=== PATIENT | male | born 1955 | race Caucasian/White ===

== ENCOUNTER 2017-10-19 15:43 | Outpatient (CLI) | payer MEDICAID, SELFPAY | END 2017-10-19 16:17 | PROVIDERS: Family Provider Internal Medicine Adolescent Medicine; Visit Provider Internal Medicine Adolescent Medicine | DX: Z79.01 Long term (current) use of anticoagulants (principal); Z95.2 Presence of prosthetic heart valve; Z51.81 Encounter for therapeutic drug level monitoring | CPT/HCPCS: 85610; 99211; G0463 ==

== ENCOUNTER 2017-11-29 11:51 | Outpatient (CLI) | payer MEDICAID, SELFPAY ==
[2017-11-29 13:59] LABS: PHA INR Fingerstick 2.6 (0.9-1.1)
== END 2017-11-29 14:07 | disposition home or self-care (01) ==
LOC: ACC 11:53
PROVIDERS: PCP Internal Medicine Adolescent Medicine; Visit Provider Internal Medicine Adolescent Medicine
DX: Z79.01 Long term (current) use of anticoagulants (principal); Z95.2 Presence of prosthetic heart valve; Z51.81 Encounter for therapeutic drug level monitoring
CPT/HCPCS: 85610

== ENCOUNTER → 2018-01-30 09:54 | Outpatient (CLI) | payer MEDICAID, SELFPAY ==
[2018-01-30 13:57] LABS: Alanine Aminotransferase 20 U/L (12-78); Albumin Level 3.5 gm/dL (3.4-5.0); Alkaline Phosphatase 95 U/L (46-116); Anion Gap 12.4 mEq/L (5-15); Aspartate Amino Transferase 21 U/L (15-37); Bilirubin,Total 0.7 mg/dL (0.2-1.0); Blood Urea Nitrogen 47 mg/dL (7-18); Calcium 9.3 mg/dL (8.5-10.1); Carbon Dioxide 29 mmol/L (21.0-32.0); Chloride 104 mmol/L (98-107); Creatinine,Serum 1.75 mg/dL (0.70-1.30); Estimated Glomerular Filt Rate 39 ml/min (>60); GFR (African American) 48 ML/MIN (>60); Globulin 3.6 gm/dl (1.3-3.2); Glucose 102 mg/dL (74-106); Potassium 4.4 mmoL/L (3.5-5.1); Sodium 141 mmol/L (136-145); Total Protein,Serum 7.1 gm/dL (6.4-8.2)
[2018-01-30 14:19] LABS: Hemoglobin A1C 6.5 % (0.0-7.0)
== END ==
PROVIDERS: Visit Provider Internal Medicine Adolescent Medicine
DX: E11.9 Type 2 diabetes mellitus without complications (principal)
CPT/HCPCS: 36415; 80053; 83036

== ENCOUNTER 2018-02-07 15:40 | Outpatient (CLI) | payer MEDICAID, SELFPAY ==
[2018-02-07 15:59] LABS: PHA INR Fingerstick 3.1 (0.9-1.1)
== END 2018-02-07 16:08 | disposition home or self-care (01) ==
LOC: ACC 15:41
PROVIDERS: PCP Internal Medicine Adolescent Medicine; Visit Provider Internal Medicine Adolescent Medicine
DX: Z79.01 Long term (current) use of anticoagulants (principal); Z51.81 Encounter for therapeutic drug level monitoring; Z95.2 Presence of prosthetic heart valve
CPT/HCPCS: 85610; 99211; G0463

== ENCOUNTER 2018-03-24 13:46 | Outpatient (CLI) | payer MEDICAID, SELFPAY ==
[2018-03-24 14:21] LABS: PHA INR Fingerstick 2.7 (0.9-1.1)
== END 2018-03-24 14:55 | disposition home or self-care (01) ==
LOC: ACC 13:48
PROVIDERS: PCP Internal Medicine Adolescent Medicine; Visit Provider Internal Medicine Adolescent Medicine
DX: Z79.01 Long term (current) use of anticoagulants (principal); Z51.81 Encounter for therapeutic drug level monitoring; Z95.2 Presence of prosthetic heart valve
CPT/HCPCS: 85610; 99211; G0463

== ENCOUNTER 2018-05-16 15:43 | Outpatient (CLI) | payer MEDICAID, SELFPAY ==
[2018-05-16 16:21] LABS: PHA INR Fingerstick 2.8 (0.9-1.1)
== END 2018-05-16 16:33 | disposition home or self-care (01) ==
LOC: ACC 15:44
PROVIDERS: PCP Internal Medicine Adolescent Medicine; Visit Provider Internal Medicine Adolescent Medicine
DX: Z79.01 Long term (current) use of anticoagulants (principal); Z51.81 Encounter for therapeutic drug level monitoring; Z95.2 Presence of prosthetic heart valve
CPT/HCPCS: 85610; 99211; G0463

== ENCOUNTER 2018-08-01 13:22 | Outpatient (CLI) | payer MEDICAID, SELFPAY ==
[2018-08-01 15:45] LABS: PHA INR Fingerstick 2.8 (0.9-1.1)
== END 2018-08-01 15:47 | disposition home or self-care (01) ==
LOC: ACC 13:23
PROVIDERS: Family Provider Internal Medicine Adolescent Medicine; PCP Internal Medicine Adolescent Medicine; Visit Provider Internal Medicine Adolescent Medicine
DX: Z51.81 Encounter for therapeutic drug level monitoring (principal); Z79.01 Long term (current) use of anticoagulants; Z95.2 Presence of prosthetic heart valve
CPT/HCPCS: 85610; 99211; G0463

== ENCOUNTER 2018-09-27 10:39 | Outpatient (CLI) | payer MEDICAID, SELFPAY ==
[2018-09-27 11:23] LABS: PHA INR Fingerstick 2.8 (0.9-1.1)
== END 2018-09-27 11:25 | disposition home or self-care (01) ==
LOC: ACC 10:40
PROVIDERS: PCP Internal Medicine Adolescent Medicine; Visit Provider Internal Medicine Adolescent Medicine
DX: Z51.81 Encounter for therapeutic drug level monitoring (principal); Z79.01 Long term (current) use of anticoagulants; Z95.2 Presence of prosthetic heart valve
CPT/HCPCS: 85610; 99211; G0463

== ENCOUNTER 2018-11-15 09:50 | Outpatient (CLI) | payer MEDICARE, MEDICAID, SELFPAY | END 2018-11-15 11:09 | disposition home or self-care (01) | LOC: ACC 09:55 | PROVIDERS: PCP Internal Medicine Adolescent Medicine; Visit Provider Internal Medicine Adolescent Medicine | DX: Z51.81 Encounter for therapeutic drug level monitoring (principal); Z79.01 Long term (current) use of anticoagulants; Z95.2 Presence of prosthetic heart valve | CPT/HCPCS: 85610; 99211; G0463 ==

== ENCOUNTER → 2018-12-19 16:56 | Outpatient (CLI) | payer MEDICARE, MEDICAID, SELFPAY ==
--- NOTE | 2018-12-19 17:06 | XR_ITS ---
XR chest 2V HISTORY: Cough and hemoptysis ITS.REASON: HEMOPTYSIS ORDERING PHYSICIAN: Humphrey Chavarria MD PATIENT AGE: 63 years COMPARISON: 07/26/2015 FINDINGS: Prior CABG and bivalvular replacement. Normal heart size.. Consolidation present in the left lower lobe consistent with pneumonia with small effusion. There is increased density along the posterior hemithorax on the lateral view at the T8-T9 and T10 region. There was parenchymal opacity in this region on previous CT scan of 04/09/2015. This may be somewhat more prominent. Follow-up chest CT may confirm stability. No acute bony abnormalities. IMPRESSION: 1. Left lower lobe pneumonia with effusion. 2. Postsurgical changes. 3. Slight increase in parenchymal and subpleural opacity in the posterior hemithorax on the left which may be better evaluated with CT
[2018-12-19 17:26] LABS: INR 1.92 (0.9-1.1); Prothrombin Time 19.4 seconds (9.4-11.8)
[2018-12-19 17:55] LABS: Basophils # 0.1 K/mm3 (0-0.2); Basophils % 0.5 % (0.1-2.0); Eosinophils # 0.1 K/mm3 (0.0-0.4); Hematocrit 44.6 % (42.0-52.0); Hemoglobin 14.1 g/dL (14.1-18.0); Lymphocytes # 1.5 K/mm3 (0.7-4.5); Lymphocytes % 14.9 % (10-50); Mean Corpuscular HGB Conc 31.5 g/dL (31.8-35.4); Mean Corpuscular Hemoglobin 27.8 pg (27.0-31.2); Mean Corpuscular Volume 88.1 fl (80-94); Mean Platelet Volume 7.5 fl (7.4-10.4); Monocytes # 0.6 K/mm3 (0.1-1.0); Monocytes % 6.4 % (1.7-9.3); Neutrophils # 7.6 K/mm3 (1.8-7.8); Neutrophils % 77.2 % (37.0-80.0); Platelet Count 195 K/mm3 (142-424); Red Blood Count 5.07 M/mm3 (4.60-6.20); Red Cell Distribution Width 14.7 % (11.5-17.5); White Blood Count 9.9 K/mm3 (4.8-10.8)
[2018-12-19 18:14] LABS: Alanine Aminotransferase 19 U/L (12-78); Albumin Level 3.1 gm/dL (3.4-5.0); Albumin/Globulin Ratio 0.8 (1.1-1.8); Alkaline Phosphatase 96 U/L (46-116); Anion Gap 11.5 mEq/L (5-15); Aspartate Amino Transferase 19 U/L (15-37); Bilirubin,Total 1.4 mg/dL (0.2-1.0); Blood Urea Nitrogen 53 mg/dL (7-18); Calcium 8.7 mg/dL (8.5-10.1); Carbon Dioxide 27 mmol/L (21.0-32.0); Chloride 103 mmol/L (98-107); Creatinine,Serum 1.96 mg/dL (0.70-1.30); Estimated Glomerular Filt Rate 34 ml/min (>60); GFR (African American) 42 ML/MIN (>60); Globulin 3.8 gm/dl (1.3-3.2); Glucose 86 mg/dL (74-106); Potassium 4.5 mmoL/L (3.5-5.1); Sodium 137 mmol/L (136-145); Total Protein,Serum 6.9 gm/dL (6.4-8.2)
== END ==
PROVIDERS: Visit Provider Internal Medicine Adolescent Medicine
DX: R04.2 Hemoptysis (principal); Z51.81 Encounter for therapeutic drug level monitoring; Z79.01 Long term (current) use of anticoagulants; Z95.2 Presence of prosthetic heart valve
CPT/HCPCS: 36415; 71046; 80053; 85025; 85610

== ENCOUNTER → 2018-12-28 07:40 | Outpatient (CLI) | payer MEDICARE, MEDICAID, SELFPAY ==
--- NOTE | 2018-12-28 07:43 | CT_ITS ---
CT chest wo con HISTORY: Hemoptysis, pneumonia, lobar pneumonia ITS.REASON: LOBAR PNEUMONIA ORDERING PHYSICIAN: Humphrey Chavarria MD PATIENT AGE: 63 years COMPARISON: 12/19/2018 Technique: Axial images obtained without contrast. Sagittal, and coronal reformatted images are also generated and reviewed. All CT scans at the facility use one or more dose reduction, viz: automated exposure control, ma/kV adjustment per patient size (including targeted exams where dose is matched to indication, i.e. head), or iterative reconstruction technique. FINDINGS: Extensive atheromatous changes are present involving the thoracic aorta. There has been CABG and bivalvular replacement. Normal heart size. No evidence of pericardial effusion. A moderate-sized hiatal hernia. There are centrilobular emphysematous changes along with hyperinflation consistent with COPD. There are scattered small mediastinal lymph nodes. Calcified granuloma is present in the right lower lobe.. A noncalcified 6 mm nodule present in the right lower lobe posteriorly. There is some faint nodularity within the lingula. There is an oval bandlike and masslike area of consolidation in the left lower lobe posteriorly. No central air bronchograms are evident however this has fairly smooth margin with some peripheral air bronchograms. This is consistent with chronic consolidation or volume loss/atelectasis having a similar appearance on older abdomen CT scan of 04/09/2015. Trace left-sided effusion is noted with some thickening of the pleura inferiorly not significantly changed. No acute bony findings. Upper abdominal images show prior cholecystectomy with some coarse calcification along the right hepatic lobe inferiorly with slight increased soft tissue density at this region. This is of questionable clinical significance and could be sequela from prior surgery. IMPRESSION: 1. Chronic left lower lobe consolidation/volume loss posteriorly with associated effusion not significant change from 04/09/2015 2. 6 mm noncalcified nodule right lower lobe. 6 month follow-up suggested. 3. Status post cholecystectomy with some dystrophic calcification noted along the right hepatic lobe inferiorly and posteriorly possibly postsurgical in nature and may be confirmed with follow-up. 4. Medium sized hiatal hernia
== END ==
PROVIDERS: PCP Internal Medicine Adolescent Medicine; Visit Provider Internal Medicine Adolescent Medicine
DX: J18.1 Lobar pneumonia, unspecified organism (principal); Z87.891 Personal history of nicotine dependence
CPT/HCPCS: 71250

== ENCOUNTER 2019-01-03 10:18 | Outpatient (CLI) | payer MEDICARE, MEDICAID, SELFPAY ==
[2019-01-03 11:30] LABS: PHA INR Fingerstick 2.7 (0.9-1.1)
== END 2019-01-03 11:34 | disposition home or self-care (01) ==
LOC: ACC 10:23
PROVIDERS: PCP Internal Medicine Adolescent Medicine; Visit Provider Internal Medicine Adolescent Medicine
DX: Z51.81 Encounter for therapeutic drug level monitoring (principal); Z79.01 Long term (current) use of anticoagulants; Z95.2 Presence of prosthetic heart valve
CPT/HCPCS: 36415; 85610; 99211; G0463

== ENCOUNTER → 2019-01-09 10:47 | Outpatient (CLI) | payer MEDICARE, MEDICAID, SELFPAY ==
--- NOTE | 2019-01-09 10:49 | CA_ITS ---
PROCEDURE: 2-D M-mode and color Doppler study INDICATIONS FOR THE TEST: Chest pain COPD Heart Murmur Tobacco SmokingEX Palpitations Fatigue Syncope Edema Hypertension+Diabetes Mellitus+ Rheumatic Fever SOB SANDOVAL Obesity Hyperlipidemia+ Family History HD Additional History EF 40-45% on echo 06/07/17, [facility] AV, [facility] MV PATIENT INFORMATION HEIGHT: 66 WEIGHT:197 GENDER: Male B/P: 130/85 2-D/M-MODE INTERPRETATION: 2-D MEASUREMENTS OBSERVED VALUES IN CMS Right Ventricular Dimension (RVDd) 3.1 Interventricular Septum (Thickness)(IVsd) 1.3 Left Ventricular Internal Dimensions(LVIDd) 3.5 Left Ventricular Posterior Wall (Thickness)(LVPWd) 1.3 Aortic Root 2.4 Aortic Cusp Separation 1.6 Left Atrial Dimensions (LAD) 4.0 2D 1. Left atrium is mildly enlarged, left ventricle is normal size, mild concentric left ventricular hypertrophy, visually estimated ejection fraction 40-45%, there is abnormal septal motion. 2. The right atrium and right ventricle are moderately enlarged, contractility of the right ventricle is normal. 3. There is mechanical prosthetic valve noted in the aortic position, the valve is well seated. 4. There is mechanical prosthetic valve noted in the mitral position valve is well seated. 5. The tricuspid valve leaflets are minimally thickened and 6. The pulmonic valve is poorly visualized. 7. No significant pericardial effusion noted. DOPPLER INTERROGATION: 1. The aortic out flow velocity across the prosthetic valve is within normal range, there is no aortic stenosis or aortic insufficiency. 2. The mitral inflow velocity across the prosthetic valve is within normal range, there is no significant mitral inflow obstruction or mitral regurgitation. 3. There is mild tricuspid regurgitation noted, tricuspid regurgitation jet velocity is inadequate for calculation of the right ventricular systolic pressure. CONCLUSION: 1. Moderate biatrial enlargement, normal left ventricular size, mild concentric left ventricular hypertrophy, visually estimated ejection fraction 40-45%, there is abnormal septal motion. 2. Normal functioning mechanical prosthetic valve in the aortic position without significant aortic outflow obstruction or aortic insufficiency. 3. Normal functioning mechanical prosthetic valve in mitral position 4. Mild tricuspid regurgitation 5. Moderately enlarged right ventricle with normal contractility. 6. No significant pericardial effusion noted.
== END ==
PROVIDERS: PCP Internal Medicine Adolescent Medicine; Visit Provider Urology
DX: I42.9 Cardiomyopathy, unspecified (principal); I25.10 Atherosclerotic heart disease of native coronary artery without angina pectoris
CPT/HCPCS: 93306

== ENCOUNTER 2019-01-31 13:57 | Outpatient (CLI) | payer MEDICARE, MEDICAID, SELFPAY ==
[2019-01-31 15:14] LABS: PHA INR Fingerstick 2.6 (0.9-1.1)
== END 2019-01-31 15:23 | disposition home or self-care (01) ==
LOC: ACC 13:59
PROVIDERS: PCP Internal Medicine Adolescent Medicine; Visit Provider Internal Medicine Adolescent Medicine
DX: Z51.81 Encounter for therapeutic drug level monitoring (principal); Z79.01 Long term (current) use of anticoagulants; Z95.2 Presence of prosthetic heart valve
CPT/HCPCS: 85610; 99211; G0463

== ENCOUNTER 2019-04-04 10:45 | Outpatient (CLI) | payer MEDICARE, MEDICAID, SELFPAY ==
[2019-04-04 11:23] LABS: PHA INR Fingerstick 3.1 (0.9-1.1)
== END 2019-04-04 11:32 | disposition home or self-care (01) ==
LOC: ACC 10:47
PROVIDERS: PCP Internal Medicine Adolescent Medicine; Visit Provider Internal Medicine Adolescent Medicine
DX: Z51.81 Encounter for therapeutic drug level monitoring (principal); Z79.01 Long term (current) use of anticoagulants; Z95.2 Presence of prosthetic heart valve
CPT/HCPCS: 85610; 99211; G0463

== ENCOUNTER 2019-07-04 10:44 | Outpatient (CLI) | payer MEDICARE, MEDICAID, SELFPAY ==
[2019-07-04 11:48] LABS: PHA INR Fingerstick 3.5 (0.9-1.1)
--- NOTE | 2019-11-08 14:46 | HMH.PHAINT ---
ACC-CALLED MULTIPLE NUMBERS INCLUDING [id number] AND [id number]. CALLED MD OFFICE TO VERIFY PHONE NUMBERS WELL. NO ANSWER, DISCONNECTED.
== END 2019-07-04 11:57 | disposition home or self-care (01) ==
PROVIDERS: PCP Internal Medicine Adolescent Medicine; Visit Provider Internal Medicine Adolescent Medicine
DX: Z51.81 Encounter for therapeutic drug level monitoring (principal); Z79.01 Long term (current) use of anticoagulants; Z95.2 Presence of prosthetic heart valve
CPT/HCPCS: 85610; 99211; G0463

== ENCOUNTER 2020-03-10 09:19 | Outpatient (CLI) | payer MEDICARE, OTHER, SELFPAY ==
[2020-03-10 10:13] LABS: PHA INR Fingerstick 3.4 (0.9-1.1)
== END 2020-03-10 10:19 | disposition home or self-care (01) ==
LOC: ACC 09:22
PROVIDERS: PCP Internal Medicine Adolescent Medicine; Visit Provider Internal Medicine Adolescent Medicine
DX: Z51.81 Encounter for therapeutic drug level monitoring (principal); Z79.01 Long term (current) use of anticoagulants; Z95.2 Presence of prosthetic heart valve
CPT/HCPCS: 85610; 99211; G0463

== ENCOUNTER → 2020-04-08 08:12 | Outpatient (CLI) | payer MEDICARE, OTHER, SELFPAY ==
[2020-04-08 10:32] LABS: Coronavirus 19 IgG Antibody Negative (Negative); Coronavirus 19 IgM Antibody Negative (Negative)
== END ==
PROVIDERS: Visit Provider Surgery
DX: Z01.818 Encounter for other preprocedural examination (principal)
CPT/HCPCS: 36415; 86328

== ENCOUNTER 2020-04-10 07:28 | Day surgery (SDC) | payer MEDICARE, OTHER, SELFPAY ==
[2020-04-09 13:24] VITALS: BMI 28.7
[2020-04-10] VITALS (11 sets, daily range): BP systolic 76–135; BP diastolic 48–82; PULSE 61–87; RESP 16–18; TEMP 36.5–36.6; O2SAT 94–98
[2020-04-10 08:16] LABS: POC Glucose,Bedside 59 (70-110)
[2020-04-10 09:16] LABS: POC Glucose,Bedside 128 (70-110)
[2020-04-10 09:19] LABS: INR 1.25 (0.9-1.1); Prothrombin Time 12.7 seconds (9.4-11.8)
--- NOTE | 2020-04-10 10:24 | HMH.ANESCL ---
[facility] Anesthesia Checklist - Patient Identification Patient Identification: Arm Band, Verbal (Name & ) - Structural Data Admitted From: Home Planned Operative Procedure/s: Colonoscopy Consent for Planned Operative Procedure(s) Verified: Yes Verified Documents: Surgical Consent, History and Physical - NPO Status Verified Time NPO: 00:00 - Chart Verification Results Verified: PT, PTT, INR - Additional verifications Fingerstick Blood Glucose: 128 Anesthesia Reactions: No - Airway Assessment C-Spine Mobility Assessed: Yes TMJ Mobility Assessed: Yes Dentition: Edentulous - Neurological Assessment Level of Consciousness: Awake, Alert, Appropriate, Follows Commands, Sedated Hx Seizures: No Numbness or tingling in extremities: Yes - Anesthesia Plan Anesthesia Risk discussed: Yes Anesthesia Plan: Verified ASA Class: III Anesthesia Type: MAC [facility] History I have reviewed the patient's past medical history: Yes Medical History: Reports:: Atherosclerotic Heart Disease, Cardiomyopathy, Chronic Obstructive Pulmonary Disease (COPD), Coronary Artery Disease, Cerebrovascular Accident, Diabetes Mellitus Type 2, Gastroesophageal Reflux Disease(GERD), Hyperlipidemia, Hypertension, Renal Disease, Valvular Heart Disease Denies:: Cancer, Internal Pacemaker, MRSA, Seizures *Have you ever received a pneumonia vaccine?: Yes *Have you received a flu vaccine this season?: Yes Comment:: Gout, obesity Anesthesia experience/problems:: None Other Surgeries: Yes: Angioplasty, Cardiac Catheterization (stents), Coronary Stent, Other. No: Pacemaker Amputation: No Fractures: No - *Social History Smoking Status: Former smoker Tobacco Type: smokeless tobacco Alcohol Intake: former Alcohol Intake Frequency:: other Substance Use Type: denies use *Occupational Status:: retired *Travel in the last 8 weeks: None Family Hx:: Diabetes
--- NOTE | 2020-04-10 11:01 | HMH.SCOPE ---
- Procedure: Date: 04/10/20 Procedure Performed:: Colonoscopy with polypectomy Indications:: Positive Cologuard Performing Provider:: Simon Cormier MD Referring Provider:: . Sedation:: Monitored anesthesia care Procedure:: After informed consent was obtained the patient was taken to the endoscopy suite. Sedation ensued after the patient was transferred to the left lateral decubitus position. Pulse, blood pressure, and oxygen saturation were monitored throughout the procedure. Digital rectal exam revealed no significant abnormality. The colonoscope was placed in position. The entire colon was evaluated. The colonoscope was carefully removed and the patient was transferred to recovery in stable condition. Please see findings and specimens below for detail. Findings:: Bowel preparation moderate Moderate spasticity Fairly severe lack of relaxation Moderate tortuosity with particularly high degree of tortuosity in sigmoid Scattered diverticulosis (pandiverticulosis) Hemorrhoidal cushions with no thrombosis or bleeding Multiple complex polyps (see specimens) Specimens:: Pedunculated right colon polyp (snare) Hepatic flexure polyp (snare) Adjacent polyps at 65 cm (snare) Adjacent polyps at 55 cm Cluster of complex polyps around 55 cm (snare) Polyp at 12 cm (snare) Recommendations:: Consider barium enema secondary to fairly significant sigmoid tortuosity Timing of repeat colonoscopy is pending pathology and results of barium enema but will likely be between 6-12 months secondary to size/nature/number of polyps, moderate bowel preparation, spasticity/tortuosity, lack of relaxation, and positive Cologuard. Complications:: No immediate Estimated blood obtained (mL): 1
[2020-04-10 11:12] LABS: POC Glucose,Bedside 91 (70-110)
--- NOTE | 2020-04-10 13:00 | XR_ITS ---
PROCEDURE: XR ACUTE ABDOMEN SERIES CLINICAL INDICATION: pain s/p colonoscopy COMPARISON: CXR2V XR chest 2V from 12/19/2018 FINDINGS: Frontal view of the chest shows prior by valvular replacement with cardiomegaly. There is increased density on the left suggesting left-sided pleural effusion. Upright and supine views are obtained of the abdomen somewhat limited technically. The bowel gas pattern is nonspecific. No free air or obstruction is evident. Degenerative changes are present in the spine and there is generalized vascular calcification. IMPRESSION: Nonspecific nonobstructive bowel gas pattern. No evidence of free air. Cardiomegaly with left-sided pleural effusion Dictated by: Roberto Márquez MD 04/10/2020 13:24 Electronically signed by Roberto Márquez MD in [facility] 04/10/2020 13:24
--- NOTE | 2020-04-10 13:32 | SUR.PHASEII ---
1106- FSBS: 91 1328: FSBS: 166
--- NOTE | 2020-04-10 13:39 | SUR.PHASEII ---
[address] Cormier, to keep pt for 2 hours in post op with flat and upright xray at 1300. Pt to stay until xray read.
--- NOTE | 2020-04-10 14:07 | SUR.PHASEII ---
1400- Clarified with Dr. Cormier that pt should take Lovenox this evening and then restart Plavix and Coumadin in morning. Updated pt and his , verbalized understanding. Dr. Cormier saw xray results and is okay to discharge.
[2020-04-10 14:29] LABS: POC Glucose,Bedside 166 (70-110)
== END 2020-04-10 14:00 | disposition home or self-care (01) ==
LOC: OUTP 07:29
PROVIDERS: PCP Internal Medicine Adolescent Medicine; Visit Provider Surgery
PROC: 0DJD8ZZ Inspection of Lower Intestinal Tract, Via Natural or Artificial Opening Endoscopic (ICD-10-PCS; principal; 2020-04-10 09:30)
DX: K58.9 Irritable bowel syndrome, unspecified (principal); K63.89 Other specified diseases of intestine; K57.30 Diverticulosis of large intestine without perforation or abscess without bleeding; K64.0 First degree hemorrhoids; Z79.899 Other long term (current) drug therapy; K63.5 Polyp of colon; Z79.01 Long term (current) use of anticoagulants; Z79.4 Long term (current) use of insulin; Z88.6 Allergy status to analgesic agent; E11.9 Type 2 diabetes mellitus without complications; I10 Essential (primary) hypertension; E78.5 Hyperlipidemia, unspecified; Z86.73 Personal history of transient ischemic attack (TIA), and cerebral infarction without residual deficits
CPT/HCPCS: 45385; 36415; 74021; 82962; 85610; 88305

== ENCOUNTER 2020-04-11 09:15 | Emergency (ER) | payer MEDICARE, OTHER, SELFPAY ==
[2020-04-11 09:17] VITALS: BP 184/97; PULSE 77; RESP 18; TEMP 36.7; O2SAT 95; BMI 28.5
[2020-04-11 10:06] VITALS: BP 132/73; PULSE 68; RESP 16; O2SAT 94
[2020-04-11 10:29] LABS: Basophils % 0.5 % (0.1-2.0); Eosinophils # 0.2 K/mm3 (0.0-0.4); Eosinophils % 1.8 % (0.1-12.0); Hematocrit 40.8 % (42.0-52.0); Hemoglobin 13.5 g/dL (14.1-18.0); Lymphocytes # 0.9 K/mm3 (0.7-4.5); Lymphocytes % 11.3 % (10-50); Mean Corpuscular HGB Conc 33.1 g/dL (31.8-35.4); Mean Corpuscular Hemoglobin 29.4 pg (27.0-31.2); Mean Corpuscular Volume 88.9 fl (80-94); Mean Platelet Volume 7.7 fl (7.4-10.4); Monocytes # 0.6 K/mm3 (0.1-1.0); Monocytes % 7.2 % (1.7-9.3); Neutrophils # 6.6 K/mm3 (1.8-7.8); Neutrophils % 79.2 % (37.0-80.0); Platelet Count 137 K/mm3 (142-424); Red Blood Count 4.59 M/mm3 (4.60-6.20); Red Cell Distribution Width 14.5 % (11.5-17.5); White Blood Count 8.4 K/mm3 (4.8-10.8)
[2020-04-11 10:34] LABS: Chloride 105 mmol/L (98-107); Potassium 4.2 mmoL/L (3.5-5.1); Sodium 135 mmol/L (136-145)
[2020-04-11 10:36] LABS: Alanine Aminotransferase 149 U/L (12-78); Aspartate Amino Transferase 115 U/L (17-59); Blood Urea Nitrogen 17 mg/dl (9-20); Creatinine Clearance Estimated 87 mL/min (50-200); Estimated Glomerular Filt Rate 67 ml/min (>60); GFR (African American) 81 ML/MIN (>60)
[2020-04-11 10:37] LABS: Albumin Level 3.2 g/dl (3.5-5.0); Alkaline Phosphatase 94 U/L (38-126); Anion Gap 5.2 mEq/L (5-15); Bilirubin,Total 1.7 mg/dl (0.2-1.3); Calcium 8.3 mg/dl (8.4-10.2); Carbon Dioxide 29 mmol/L (22.0-30.0); Globulin 3.2 g/dL (1.3-3.2); Glucose 121 mg/dl (74-100); Total Protein,Serum 6.4 g/dl (6.3-8.2)
[2020-04-11 10:41] VITALS: BP 122/75; PULSE 69; O2SAT 94
--- NOTE | 2020-04-11 10:44 | HMH.EDGENADL ---
ED Disposition Clinical Impression: Rectal bleeding Disposition: Home, Self-Care Condition on Discharge: Good Instructions: DI for Gastrointestinal Bleeding Referrals: Humphrey Chavarria MD [Primary Care Provider] - - Critical Care Critical Care Time: No Attestation: On 04/11/20, the high probability of a clinically significant, sudden or life threatening deterioration of the following system(s) required my full and direct attention, intervention and personal management. The time I documented below is in addition to time spent performing reported procedures but includes the following listed in this critical care notation. Medical Decision Making - Medical Records Medical records reviewed: Yes: I reviewed the patient's medical records. - Juan Carlos Inquiry Pt receiving controlled substance: No Vital Signs: 04/11/20 09:17 04/11/20 10:06 04/11/20 10:41 Temperature 98.1 F Temperature Source Oral Pulse Rate [Right Radial] 77 68 69 Respiratory Rate 18 16 Blood Pressure [Right Arm] 184/97 H 132/73 122/75 Blood Pressure Mean [Right Arm] 126 92 90 Blood Pressure Source [Right Arm] Automatic Cuff Automatic Cuff Automatic Cuff Blood Pressure Position [Right Arm] Sitting Supine Sitting 02 Sat by Pulse Oximetry 95 94 L 94 L Oxygen Delivery Method Room Air Room Air - Lab Data Lab results reviewed: Yes: I reviewed the patient's lab results. Lab Results 04/11/20 10:20: WBC 8.4, RBC 4.59 L, Hgb 13.5 L, Hct 40.8 L, MCV 88.9, MCH 29.4, MCHC 33.1, RDW 14.5, Plt Count 137 L, MPV 7.7, Neut % (Auto) 79.2, Lymph % (Auto) 11.3, Wolfe % (Auto) 7.2, Eos % (Auto) 1.8, Baso % (Auto) 0.5, Neut # (Auto) 6.6, Lymph # (Auto) 0.9, Wolfe # (Auto) 0.6, Eos # (Auto) 0.2, Baso # (Auto) 0.0 04/11/20 10:20: Sodium 135 L, Potassium 4.2, Chloride 105, Carbon Dioxide 29, Anion Gap 5.2, BUN 17, Creatinine 1.10, Estimated Creat Clear 87, Estimated GFR 67, Est GFR ( Amer) 81, Glucose 121 H, Calcium 8.3 L, Total Bilirubin 1.7 H, AST 115 H, ALT 149 H, Alkaline Phosphatase 94, Total Protein 6.4, Albumin 3.2 L, Globulin 3.2, Albumin/Globulin Ratio 1.0 L Result diagrams: 04/11/20 10:20 04/11/20 10:20 General Adult HPI - General Chief complaint: GI Bleed Stated complaint: bleeding from colonoscopy yesterday Time Seen by Provider: 04/11/20 10:44 Mode of Arrival: Ambulatory Source of Information: Patient Limitations: No Limitations Description of Symptoms (Recalled from ER Triage Doc. by RN): PT STATES THAT HE HAD A COLONOSCOPY YESTERDAY, PERFORMED BY DR GONZALEZ, AND ADVISES THAT WHEN HE WENT TO THE BATHROOM THIS MORNING HE WAS BLEEDING FROM HIS RECTUM MORE THAN HE THOUGHT HE SHOULD - History of Present Illness HPI narrative: 64-year-old male presents the ED with an acute onset of some GI bleeding. Patient states he had a colonoscopy yesterday and is noticed some bright red blood in his stool earlier this morning just one episode. Otherwise patient has no other issues patient does not complain of any pain patient has no evidence of infectious process. - Related Data Home Medications Medication Instructions Recorded Confirmed allopurinol 300 mg tablet 300 mg PO ONCE 11/28/17 04/10/20 docusate sodium 250 mg capsule 250 mg PO ONCE 11/28/17 04/10/20 fluticasone propionate 50 50 mcg INTRANASAL ONCE 11/28/17 03/26/20 mcg/actuation nasal spray,suspension gabapentin 300 mg capsule 300 mg PO TID 11/28/17 04/10/20 insulin aspart U-100 100 unit/mL 10 unit SUB-Q QAM 11/28/17 04/10/20 (3 mL) subcutaneous pen insulin human U-100 NPH-regulr 20 unit SUB-Q QAM 11/28/17 04/10/20 70-30 mix 100 unit/mL subcutaneous susp loratadine 10 mg tablet 10 mg PO ONCE 11/28/17 04/10/20 tamsulosin 0.4 mg capsule 0.4 mg PO ONCE 11/28/17 04/10/20 warfarin 5 mg tablet 5 mg PO ONCE 11/28/17 04/10/20 insulin degludec 200 unit/mL (3 25 unit SUB-Q QHS ml 04/17/18 06/18/20 mL) subcutaneous pen omeprazole 40 mg capsule,delayed 20 mg PO ONCE cap 01/03
[2020-04-11 10:52] VITALS: BP 130/76; PULSE 70; RESP 18; TEMP 36.9; O2SAT 95
== END 2020-04-11 10:53 | disposition home or self-care (01) ==
PROVIDERS: Emergency Provider Family Medicine; PCP Internal Medicine Adolescent Medicine
DX: K62.5 Hemorrhage of anus and rectum (principal); I50.22 Chronic systolic (congestive) heart failure; E11.9 Type 2 diabetes mellitus without complications; J44.9 Chronic obstructive pulmonary disease, unspecified; I25.10 Atherosclerotic heart disease of native coronary artery without angina pectoris; I10 Essential (primary) hypertension; K21.9 Gastro-esophageal reflux disease without esophagitis; E78.5 Hyperlipidemia, unspecified; Z87.891 Personal history of nicotine dependence; Z95.2 Presence of prosthetic heart valve; Z79.899 Other long term (current) drug therapy; Z79.4 Long term (current) use of insulin
CPT/HCPCS: 36415; 80053; 85025; 99282

== ENCOUNTER 2020-04-16 14:09 | Outpatient (CLI) | payer MEDICARE, OTHER, SELFPAY ==
[2020-04-16 16:08] LABS: PHA INR Fingerstick 1.6 (0.9-1.1)
== END 2020-04-16 16:11 | disposition home or self-care (01) ==
LOC: ACC 14:10
PROVIDERS: PCP Internal Medicine Adolescent Medicine; Visit Provider Internal Medicine Adolescent Medicine
DX: Z51.81 Encounter for therapeutic drug level monitoring (principal); Z79.01 Long term (current) use of anticoagulants; Z95.2 Presence of prosthetic heart valve
CPT/HCPCS: 85610; 99211; G0463

== ENCOUNTER 2020-04-23 13:02 | Outpatient (CLI) | payer MEDICARE, OTHER, SELFPAY ==
[2020-04-23 14:32] LABS: PHA INR Fingerstick 2.8 (0.9-1.1)
== END 2020-04-23 14:35 | disposition home or self-care (01) ==
LOC: ACC 13:03
PROVIDERS: PCP Internal Medicine Adolescent Medicine; Visit Provider Internal Medicine Adolescent Medicine
DX: Z51.81 Encounter for therapeutic drug level monitoring (principal); Z79.01 Long term (current) use of anticoagulants; Z95.2 Presence of prosthetic heart valve
CPT/HCPCS: 85610; 99211; G0463

== ENCOUNTER 2020-06-05 08:52 | Outpatient (CLI) | payer MEDICARE, OTHER, SELFPAY ==
--- NOTE | 2020-06-05 08:52 | FL_ITS ---
PROCEDURE: FL BARIUM ENEMA CLINICAL INDICATION: Polyps, rectal bleeding COMPARISON: No exams were available for comparison FINDINGS: Double-contrast barium enema performed without incident. Fluoroscopy time: 1 minutes and 55 seconds. The colon is visualized from rectum to cecum including filling of the appendix. Multiple diverticular present throughout the colon most prominent in the sigmoid region. No fixed polypoid filling defects or mucosal abnormalities are apparent. IMPRESSION: Diverticulosis otherwise negative air-contrast barium Dictated b Roberto Márquez MD 06/05/2020 12:14 Roberto Márquez MD in [facility] 06/05/2020 12:14
[2020-06-05 15:24] LABS: PHA INR Fingerstick 2.7 (0.9-1.1)
== END 2020-06-05 15:25 | disposition home or self-care (01) ==
PROVIDERS: PCP Internal Medicine Adolescent Medicine; Visit Provider Surgery
DX: K62.5 Hemorrhage of anus and rectum (principal); Z79.01 Long term (current) use of anticoagulants
CPT/HCPCS: 74270; 85610; 99211; G0463

== ENCOUNTER 2020-07-08 09:18 | Outpatient (CLI) | payer MEDICARE, OTHER, SELFPAY ==
[2020-07-08 13:43] LABS: PHA INR Fingerstick 2.9 (0.9-1.1)
== END 2020-07-08 13:44 | disposition home or self-care (01) ==
LOC: ACC 09:21
PROVIDERS: PCP Internal Medicine Adolescent Medicine; Visit Provider Internal Medicine Adolescent Medicine
DX: Z51.81 Encounter for therapeutic drug level monitoring (principal); Z79.01 Long term (current) use of anticoagulants; Z95.2 Presence of prosthetic heart valve
CPT/HCPCS: 85610; 99211; G0463

== ENCOUNTER 2020-08-15 13:13 | Outpatient (CLI) | payer MEDICARE, OTHER, SELFPAY ==
[2020-08-15 15:00] LABS: PHA INR Fingerstick 2.3 (0.9-1.1)
== END 2020-08-15 15:02 | disposition home or self-care (01) ==
LOC: ACC 13:15
PROVIDERS: PCP Internal Medicine Adolescent Medicine; Visit Provider Internal Medicine Adolescent Medicine
DX: Z51.81 Encounter for therapeutic drug level monitoring (principal); Z79.01 Long term (current) use of anticoagulants; Z95.2 Presence of prosthetic heart valve
CPT/HCPCS: 85610; 99211; G0463

== ENCOUNTER 2020-10-06 13:54 | Outpatient (CLI) | payer MEDICARE, OTHER, SELFPAY ==
--- NOTE | 2020-10-06 14:43 | HMH.PHAINT ---
ACC-10/06/20-PATIENT SEEN TODAY IN [facility]. PATIENT MISSED LAST APPOINTMENT ON 09/12/20. NO SHOW NO CALL.
[2020-10-06 15:29] LABS: PHA INR Fingerstick 3.6 (0.9-1.1)
== END 2020-10-06 15:31 | disposition home or self-care (01) ==
LOC: ACC 13:55
PROVIDERS: PCP Internal Medicine Adolescent Medicine; Visit Provider Internal Medicine Adolescent Medicine
DX: Z51.81 Encounter for therapeutic drug level monitoring (principal); Z79.01 Long term (current) use of anticoagulants; Z95.2 Presence of prosthetic heart valve
CPT/HCPCS: 85610; 99211; G0463

== ENCOUNTER 2020-11-03 13:39 | Outpatient (CLI) | payer MEDICARE, OTHER, SELFPAY ==
[2020-11-03 15:42] LABS: Prothrombin Time 39.2 seconds (9.4-11.8)
[2020-11-03 15:44] LABS: INR 4.01 (0.9-1.1)
== END 2020-11-03 16:27 | disposition home or self-care (01) ==
LOC: ACC 13:40
PROVIDERS: PCP Internal Medicine Adolescent Medicine; Visit Provider Internal Medicine Adolescent Medicine
DX: Z79.01 Long term (current) use of anticoagulants (principal)
CPT/HCPCS: 36415; 85610; 99211; G0463

== ENCOUNTER → 2020-11-03 14:18 | Outpatient (CLI) | payer MEDICARE, OTHER, SELFPAY | PROVIDERS: Visit Provider Internal Medicine Adolescent Medicine | DX: Z51.81 Encounter for therapeutic drug level monitoring (principal); Z79.01 Long term (current) use of anticoagulants | CPT/HCPCS: 36415; 85610; 99211; G0463 ==

== ENCOUNTER → 2020-11-11 12:31 | Outpatient (CLI) | payer MEDICARE, OTHER, SELFPAY ==
--- NOTE | 2020-11-11 12:31 | CA_ITS ---
APPROVED REPORT EXAM: Comprehensive 2D, Doppler, and color-flow Echocardiogram Dry Heat Room Attendant: Gillian Singh, RT(R) Ht: 5 ft 11 in Wt: 212lbs BSA: 2.16 BP: 122/71 mmHg Indications: COPD, ex smoker, HTN, DM, SANDOVAL, hyperlipidemia, mech AV, mech MV, CM, CAD, GERD 2D Dimensions LVOT 1.86 cm (M/F) 1.5-2.5 M-Mode Dimensions RVDd 3.17 cm (0.9-2.6) LA Diam 4.32 cm (1.9-4.0) LVDd 5.26 cm (3.5-5.7) Ao Diam 2.50 cm (2.0-3.7) LVDs 4.25 cm (3.5-5.7) IVSd 1.32 cm (0.6-1.1) PWd 1.16 cm (0.6-1.1) EF (Teich) 39.20% FS 19.20% EDV (Teich) 133.00 mL ESV (Teich) 80.80 mL LV Diastology E Decel Time 250.00 (160-240 msec) E/A Ratio 1.1 Aortic Valve LVOT Max 145.00 (70-110 cm/s) LVOT VTI 31.97 cm AoV Peak Cheng. 184.00 (50-130 cm/s) AO Peak GR. 13.60 mmHg AO Mean GR. 7.00 (<5 mmHg) AO VTI 37.42 (18-25 cm) CRISTIAN (VTI) 2.32 (2.5-4.5 cm2) Mitral Valve MV E Max Cheng. 135.00 (40-130 cm/s) MV A Velocity 118.00 (40-130 cm/s) E/A Ratio 1.14 MV Decel. Time 250.00 (160-240 ms) MV PHT 73.00 ms Left Ventricle Left atrium is mildly enlarged, left ventricle is normal size, mild concentric left ventricular hypertrophy, visually estimated ejection fraction approximately 45%, with no obvious regional wall motion abnormality, endocardial surfaces are poorly visualized. Diastolic parameters are inconclusive. Right Ventricle Right atrium and right ventricle are mildly enlarged with normal contractility. Aortic Valve There is mechanical prosthetic valve in the aortic position with acceptable gradient, there is no significant aortic outflow obstruction or aortic insufficiency. Mitral Valve There is mechanical prosthetic valve seen in the mitral position, the valve is well-seated, it has acceptable gradient, and there is no significant mitral regurgitation. Tricuspid Valve Tricuspid valve is grossly normal, there is mild tricuspid regurgitation, tricuspid regurgitation jet velocity is inadequate for calculation of the right ventricular systolic pressure. Pulmonic valve is poorly visualized. Great Vessels Aortic root is normal size. Pericardium No significant pericardial effusion noted. Conclusion 1. Mild biatrial enlargement, normal left ventricular size, mild concentric left ventricular hypertrophy, visually estimated ejection fraction 45% with no obvious regional wall motion abnormality, endocardial surface of poorly visualized. 2. Normal functioning mechanical aortic and mitral valve. 3. No significant pericardial effusion noted. Electronically signed by : Amrit Zhang, 11/11/2020 21:35:26
== END ==
PROVIDERS: PCP Internal Medicine Adolescent Medicine; Visit Provider Urology
DX: E78.5 Hyperlipidemia, unspecified (principal); I11.9 Hypertensive heart disease without heart failure; I25.10 Atherosclerotic heart disease of native coronary artery without angina pectoris; I42.9 Cardiomyopathy, unspecified; R06.00 Dyspnea, unspecified; Z95.2 Presence of prosthetic heart valve
CPT/HCPCS: 93306

== ENCOUNTER 2020-11-17 11:13 | Outpatient (CLI) | payer MEDICARE, OTHER, SELFPAY ==
[2020-11-17 11:50] LABS: PHA INR Fingerstick 2.9 (0.9-1.1)
== END 2020-11-17 11:51 | disposition home or self-care (01) ==
PROVIDERS: PCP Internal Medicine Adolescent Medicine; Visit Provider Internal Medicine Adolescent Medicine
DX: Z51.81 Encounter for therapeutic drug level monitoring (principal); Z79.01 Long term (current) use of anticoagulants; Z95.2 Presence of prosthetic heart valve
CPT/HCPCS: 85610; 99211; G0463

== ENCOUNTER 2020-12-15 09:34 | Outpatient (CLI) | payer MEDICARE, OTHER, SELFPAY ==
[2020-12-15 10:49] LABS: PHA INR Fingerstick 2.4 (0.9-1.1)
== END 2020-12-15 10:59 | disposition home or self-care (01) ==
LOC: ACC 09:35
PROVIDERS: PCP Internal Medicine Adolescent Medicine; Visit Provider Internal Medicine Adolescent Medicine
DX: Z51.81 Encounter for therapeutic drug level monitoring (principal); Z79.01 Long term (current) use of anticoagulants
CPT/HCPCS: 85610; 99211; G0463

== ENCOUNTER → 2020-12-23 12:05 | Outpatient (CLI) | payer MEDICARE, OTHER, SELFPAY ==
[2020-12-24 12:24] LABS: Basophils # 0.1 K/mm3 (0-0.2); Eosinophils # 0.1 K/mm3 (0.0-0.4); Eosinophils % 1.8 % (0.1-12.0); Hematocrit 47.4 % (42.0-52.0); Hemoglobin 14.6 g/dL (14.1-18.0); Lymphocytes # 1.3 K/mm3 (0.7-4.5); Mean Corpuscular HGB Conc 30.7 g/dL (31.8-35.4); Mean Corpuscular Hemoglobin 28.7 pg (27.0-31.2); Mean Corpuscular Volume 93.4 fl (80-94); Mean Platelet Volume 9.9 fl (7.4-10.4); Monocytes # 0.5 K/mm3 (0.1-1.0); Monocytes % 7.3 % (1.7-9.3); Neutrophils # 4.8 K/mm3 (1.8-7.8); Platelet Count 180 K/mm3 (142-424); Red Blood Count 5.08 M/mm3 (4.60-6.20); Red Cell Distribution Width 14.6 % (11.5-17.5); White Blood Count 6.8 K/mm3 (4.8-10.8)
[2020-12-24 13:40] LABS: Chloride 110 mmol/L (98-107); Potassium 5.2 mmoL/L (3.5-5.1); Sodium 141 mmol/L (136-145)
[2020-12-24 13:42] LABS: Alanine Aminotransferase 15 U/L (12-78); Aspartate Amino Transferase 29 U/L (17-59); Blood Urea Nitrogen 24 mg/dl (9-20); Estimated Glomerular Filt Rate 60 ml/min (>60); GFR (African American) 73 ML/MIN (>60)
[2020-12-24 13:43] LABS: Albumin Level 3.6 g/dl (3.5-5.0); Alkaline Phosphatase 111 U/L (38-126); Anion Gap 10.2 mEq/L (5-15); Bilirubin,Total 1.1 mg/dl (0.2-1.3); Calcium 9.5 mg/dl (8.4-10.2); Carbon Dioxide 26 mmol/L (22.0-30.0); Chol/HDL Ratio 4.1 (1-3.5); Cholesterol 145 mg/dl (140-200); Globulin 3.5 g/dL (1.3-3.2); Glucose 123 mg/dl (74-100); HDL Cholesterol 35 mg/dl (40-60); Total Protein,Serum 7.1 g/dl (6.3-8.2); Triglycerides 181 mg/dl (30-150); VLDL Cholesterol 36 mg/dL (0-40)
[2020-12-24 13:54] LABS: Direct LDL Cholesterol 63.55 mg/dL (100-129)
== END ==
PROVIDERS: Visit Provider Internal Medicine Adolescent Medicine
DX: I50.22 Chronic systolic (congestive) heart failure (principal); E11.9 Type 2 diabetes mellitus without complications; Z79.4 Long term (current) use of insulin; Z95.2 Presence of prosthetic heart valve
CPT/HCPCS: 80053; 80061; 83036; 85025

== ENCOUNTER 2021-01-26 12:44 | Outpatient (CLI) | payer MEDICARE, OTHER, SELFPAY ==
[2021-01-26 15:25] LABS: PHA INR Fingerstick 3.1 (0.9-1.1)
== END 2021-01-26 15:26 | disposition home or self-care (01) ==
LOC: ACC 12:45
PROVIDERS: PCP Internal Medicine Adolescent Medicine; Visit Provider Internal Medicine Adolescent Medicine
DX: Z51.81 Encounter for therapeutic drug level monitoring (principal); Z79.01 Long term (current) use of anticoagulants; Z95.2 Presence of prosthetic heart valve
CPT/HCPCS: 85610; 99211; G0463

== ENCOUNTER 2021-03-16 10:23 | Outpatient (CLI) | payer MEDICARE, OTHER, SELFPAY ==
[2021-03-16 11:13] LABS: PHA INR Fingerstick 1.8 (0.9-1.1)
== END 2021-03-16 11:15 | disposition home or self-care (01) ==
LOC: ACC 10:26
PROVIDERS: PCP Internal Medicine Adolescent Medicine; Visit Provider Internal Medicine Adolescent Medicine
DX: Z79.01 Long term (current) use of anticoagulants (principal)
CPT/HCPCS: 85610; 99211; G0463

== ENCOUNTER → 2021-03-24 20:59 | Outpatient (CLI) | payer MEDICARE, OTHER, SELFPAY ==
[2021-03-24 21:31] LABS: Alanine Aminotransferase 25 U/L (12-78); Albumin Level 3.7 g/dl (3.5-5.0); Albumin/Globulin Ratio 1.3 (1.1-1.8); Alkaline Phosphatase 95 U/L (38-126); Anion Gap 8.7 mEq/L (5-15); Aspartate Amino Transferase 42 U/L (17-59); Blood Urea Nitrogen 26 mg/dl (9-20); Carbon Dioxide 28 mmol/L (22.0-30.0); Chloride 108 mmol/L (98-107); Chol/HDL Ratio 4.7 (1-3.5); Cholesterol 135 mg/dl (140-200); Estimated Glomerular Filt Rate 67 ml/min (>60); GFR (African American) 81 ML/MIN (>60); Globulin 2.9 g/dL (1.3-3.2); Glucose 70 mg/dl (74-100); HDL Cholesterol 29 mg/dl (40-60); Potassium 5.7 mmoL/L (3.5-5.1); Sodium 139 mmol/L (136-145); Total Protein,Serum 6.6 g/dl (6.3-8.2); Triglycerides 200 mg/dl (30-150); VLDL Cholesterol 40 mg/dL (0-40)
[2021-03-24 21:34] LABS: Basophils # 0.1 K/mm3 (0-0.2); Basophils % 1.2 % (0.1-2.0); Eosinophils # 0.2 K/mm3 (0.0-0.4); Eosinophils % 2.5 % (0.1-12.0); Hematocrit 42.1 % (42.0-52.0); Hemoglobin 13.3 g/dL (14.1-18.0); Lymphocytes # 1.4 K/mm3 (0.7-4.5); Lymphocytes % 19.7 % (10-50); Mean Corpuscular HGB Conc 31.5 g/dL (31.8-35.4); Mean Corpuscular Hemoglobin 29.2 pg (27.0-31.2); Mean Corpuscular Volume 92.7 fl (80-94); Mean Platelet Volume 8.9 fl (7.4-10.4); Monocytes # 0.6 K/mm3 (0.1-1.0); Monocytes % 7.7 % (1.7-9.3); Neutrophils % 68.9 % (37.0-80.0); Platelet Count 212 K/mm3 (142-424); Red Blood Count 4.54 M/mm3 (4.60-6.20); Red Cell Distribution Width 15.1 % (11.5-17.5); White Blood Count 7.3 K/mm3 (4.8-10.8)
[2021-03-24 21:41] LABS: Prothrombin Time 21.7 seconds (10.1-12.5)
[2021-03-24 21:42] LABS: Direct LDL Cholesterol 56.18 mg/dL (100-129)
[2021-03-24 21:46] LABS: INR 1.93 (0.9-1.1)
[2021-03-25 03:37] LABS: Hemoglobin A1C 5.9 % (4.0-6.0)
== END ==
PROVIDERS: Visit Provider Internal Medicine Adolescent Medicine
DX: I25.10 Atherosclerotic heart disease of native coronary artery without angina pectoris (principal); E11.9 Type 2 diabetes mellitus without complications; Z79.4 Long term (current) use of insulin; Z95.2 Presence of prosthetic heart valve
CPT/HCPCS: 80053; 80061; 83036; 85025; 85610

== ENCOUNTER 2021-04-02 10:07 | Outpatient (CLI) | payer MEDICARE, OTHER, SELFPAY ==
[2021-04-02 10:59] LABS: PHA INR Fingerstick 2.6 (0.9-1.1)
== END 2021-04-02 11:00 | disposition home or self-care (01) ==
LOC: ACC 10:08
PROVIDERS: PCP Internal Medicine Adolescent Medicine; Visit Provider Internal Medicine Adolescent Medicine
DX: Z51.81 Encounter for therapeutic drug level monitoring (principal); Z79.01 Long term (current) use of anticoagulants
CPT/HCPCS: 85610; 99211; G0463

== ENCOUNTER 2021-06-15 09:35 | Outpatient (CLI) | payer MEDICARE, OTHER, SELFPAY ==
[2021-06-15 10:29] LABS: PHA INR Fingerstick 3.3 (0.9-1.1)
== END 2021-06-15 10:42 | disposition home or self-care (01) ==
LOC: ACC 09:38
PROVIDERS: PCP Internal Medicine Adolescent Medicine; Visit Provider Internal Medicine Adolescent Medicine
DX: Z51.81 Encounter for therapeutic drug level monitoring (principal); Z79.01 Long term (current) use of anticoagulants; Z95.2 Presence of prosthetic heart valve
CPT/HCPCS: 85610; 99211; G0463

== ENCOUNTER → 2021-07-07 18:09 | Outpatient (CLI) | payer MEDICARE, OTHER, SELFPAY ==
[2021-07-07 18:54] LABS: Basophils # 0.1 K/mm3 (0-0.2); Eosinophils # 0.2 K/mm3 (0.0-0.4); Eosinophils % 3.1 % (0.1-12.0); Hematocrit 40.9 % (42.0-52.0); Hemoglobin 12.9 g/dL (14.1-18.0); Lymphocytes # 1.1 K/mm3 (0.7-4.5); Lymphocytes % 20.4 % (10-50); Mean Corpuscular HGB Conc 31.6 g/dL (31.8-35.4); Mean Corpuscular Hemoglobin 29.9 pg (27.0-31.2); Mean Corpuscular Volume 94.4 fl (80-94); Mean Platelet Volume 8.5 fl (7.4-10.4); Monocytes # 0.5 K/mm3 (0.1-1.0); Monocytes % 10.2 % (1.7-9.3); Neutrophils # 3.4 K/mm3 (1.8-7.8); Neutrophils % 65.4 % (37.0-80.0); Platelet Count 203 K/mm3 (142-424); Red Blood Count 4.33 M/mm3 (4.60-6.20); Red Cell Distribution Width 14.5 % (11.5-17.5); White Blood Count 5.2 K/mm3 (4.8-10.8)
[2021-07-07 18:55] LABS: Alanine Aminotransferase 21 U/L (12-78); Albumin Level 3.9 g/dl (3.5-5.0); Albumin/Globulin Ratio 1.2 (1.1-1.8); Alkaline Phosphatase 115 U/L (38-126); Anion Gap 15.8 mEq/L (5-15); Aspartate Amino Transferase 78 U/L (17-59); Bilirubin,Total 0.9 mg/dl (0.2-1.3); Blood Urea Nitrogen 28 mg/dl (9-20); Carbon Dioxide 25 mmol/L (22.0-30.0); Chloride 105 mmol/L (98-107); Chol/HDL Ratio 4.7 (1-3.5); Cholesterol 145 mg/dl (140-200); Estimated Glomerular Filt Rate 67 ml/min (>60); GFR (African American) 81 ML/MIN (>60); Globulin 3.2 g/dL (1.3-3.2); Glucose 72 mg/dl (74-100); HDL Cholesterol 31 mg/dl (40-60); Potassium 4.8 mmoL/L (3.5-5.1); Sodium 141 mmol/L (136-145); Total Protein,Serum 7.1 g/dl (6.3-8.2); Triglycerides 158 mg/dl (30-150); VLDL Cholesterol 32 mg/dL (0-40)
[2021-07-07 19:00] LABS: Prothrombin Time 24.5 seconds (10.1-12.5)
[2021-07-07 19:07] LABS: Direct LDL Cholesterol 71.34 mg/dL (100-129)
[2021-07-07 19:26] LABS: Thyroid Stimulating Hormone 2.76 uIU/mL (0.465-4.68)
[2021-07-07 19:40] LABS: Hemoglobin A1C 6.2 % (4.0-6.0)
[2021-07-07 19:44] LABS: Vitamin B12 295 pg/mL (239-931)
[2021-07-07 20:25] LABS: 25-OH Vitamin D, Total 22.8 ng/mL (30-100)
== END ==
PROVIDERS: Visit Provider Nurse Practitioner Family
DX: E11.9 Type 2 diabetes mellitus without complications (principal); Z00.00 Encounter for general adult medical examination without abnormal findings; E78.5 Hyperlipidemia, unspecified; E55.9 Vitamin D deficiency, unspecified; R20.2 Paresthesia of skin; Z95.2 Presence of prosthetic heart valve; Z79.4 Long term (current) use of insulin
CPT/HCPCS: 80053; 80061; 82306; 82607; 83036; 84443; 85025; 85610

== ENCOUNTER → 2021-10-06 19:00 | Outpatient (CLI) | payer MEDICARE, OTHER, SELFPAY ==
[2021-10-06 20:09] LABS: Anion Gap 9.3 mEq/L (5-15); Blood Urea Nitrogen 27 mg/dl (9-20); Carbon Dioxide 28 mmol/L (22.0-30.0); Chloride 107 mmol/L (98-107); Estimated Glomerular Filt Rate 60 ml/min (>60); GFR (African American) 73 ML/MIN (>60); Glucose 155 mg/dl (74-100); Potassium 5.3 mmoL/L (3.5-5.1); Sodium 139 mmol/L (136-145)
[2021-10-06 20:30] LABS: INR 3.28 (0.9-1.1); Prothrombin Time 33.9 seconds (10.1-12.5)
== END ==
PROVIDERS: Visit Provider Internal Medicine Adolescent Medicine
DX: E11.9 Type 2 diabetes mellitus without complications (principal); Z79.4 Long term (current) use of insulin; Z51.81 Encounter for therapeutic drug level monitoring; Z79.01 Long term (current) use of anticoagulants; Z95.2 Presence of prosthetic heart valve
CPT/HCPCS: 80048; 85610

== ENCOUNTER 2021-11-16 14:13 | Emergency (ER) | payer MEDICARE, OTHER, SELFPAY ==
--- NOTE | 2021-11-16 14:06 | ECG_ITS ---
APPROVED REPORT Exam: Resting ECG HR:78 bpm ECG Measurements Heart Rate 78 AXES IL 151 P -5 QRSd 117 QRS 39 QT 395 T -61 QTc 428 Conclusion SINUS RHYTHM LOW QRS VOLTAGE IN PRECORDIAL LEADS [QRS DEFLECTION < 1.0 mV IN CHEST LEADS] Old anterior and inferior changes UNCONFIRMED REPORT Electronically signed by : Humphrey Chavarria MD 11/16/2021 18:31:59
[2021-11-16 14:13] VITALS: BP 149/96; PULSE 76; RESP 16; TEMP 36.9; O2SAT 95; BMI 27.3
[2021-11-16 14:16] VITALS: BMI 27.3
--- NOTE | 2021-11-16 14:17 | XR_ITS ---
FINAL REPORT CLINICAL HISTORY: CHEST PAIN COMPARISON: 04/10/2020 FINDINGS: Mild cardiomegaly is noted. There has been prior median sternotomy. There is no acute cardiopulmonary process. There is blunting of left costophrenic angle consistent with a small left pleural effusion. There is no pneumothorax. The bony thorax is intact. IMPRESSION: No acute cardiopulmonary process. Reviewed, Interpreted and Dictated by Eze Monaco MD Transcribed by Charlie Lr Authenticated by Eze Monaco MD on 11/16/2021 03:37:09 PM [facility]
[2021-11-16 14:26] LABS: Basophils # 0.1 K/mm3 (0-0.2); Basophils % 1.2 % (0.1-2.0); Eosinophils # 0.1 K/mm3 (0.0-0.4); Eosinophils % 1.5 % (0.1-12.0); Hematocrit 41.9 % (42.0-52.0); Hemoglobin 13.3 g/dL (14.1-18.0); Lymphocytes # 1.1 K/mm3 (0.7-4.5); Lymphocytes % 17.8 % (10-50); Mean Corpuscular HGB Conc 31.7 g/dL (31.8-35.4); Mean Corpuscular Hemoglobin 29.6 pg (27.0-31.2); Mean Corpuscular Volume 93.5 fl (80-94); Mean Platelet Volume 7.6 fl (7.4-10.4); Monocytes # 0.4 K/mm3 (0.1-1.0); Monocytes % 5.7 % (1.7-9.3); Neutrophils # 4.6 K/mm3 (1.8-7.8); Neutrophils % 73.9 % (37.0-80.0); Platelet Count 218 K/mm3 (142-424); Red Blood Count 4.49 M/mm3 (4.60-6.20); Red Cell Distribution Width 14.5 % (11.5-17.5); White Blood Count 6.3 K/mm3 (4.8-10.8)
--- NOTE | 2021-11-16 14:28 | HMH.EDGENADL ---
ED Disposition Clinical Impression: Atypical chest pain Disposition: Home, Self-Care Condition on Discharge: Good Additional Instructions: follow up cardiology Referrals: Humphrey Chavarrai MD [Primary Care Provider] - - Critical Care Critical Care Time: No Attestation: On 11/16/21, the high probability of a clinically significant, sudden or life threatening deterioration of the following system(s) required my full and direct attention, intervention and personal management. The time I documented below is in addition to time spent performing reported procedures but includes the following listed in this critical care notation. Medical Decision Making - Juan Carlos Inquiry Pt receiving controlled substance: No Vital Signs: 11/16/21 14:13 11/16/21 15:08 Temperature 98.5 F Temperature Source Oral Pulse Rate 75 Pulse Rate [Right] 76 Respiratory Rate 16 16 Blood Pressure 152/91 H Blood Pressure [Right Arm] 149/96 H Blood Pressure Mean [Right Arm] 113 Blood Pressure Source Automatic Cuff Blood Pressure Source [Right Arm] Automatic Cuff Blood Pressure Position Sitting Blood Pressure Position [Right Arm] Sitting 02 Sat by Pulse Oximetry 95 95 Oxygen Delivery Method Room Air Room Air - Lab Data Lab Results 11/16/21 14:10: WBC 6.3, RBC 4.49 L, Hgb 13.3 L, Hct 41.9 L, MCV 93.5, MCH 29.6, MCHC 31.7 L, RDW 14.5, Plt Count 218, MPV 7.6, Neut % (Auto) 73.9, Lymph % (Auto) 17.8, Motley % (Auto) 5.7, Eos % (Auto) 1.5, Baso % (Auto) 1.2, Neut # (Auto) 4.6, Lymph # (Auto) 1.1, Motley # (Auto) 0.4, Eos # (Auto) 0.1, Baso # (Auto) 0.1 11/16/21 14:10: Sodium 142, Potassium 4.5, Chloride 107, Carbon Dioxide 32 H, Anion Gap 7.5, BUN 28 H, Creatinine 1.50 H, Estimated Creat Clear 59, Estimated GFR 47 L, Est GFR ( Amer) 56 L, Glucose 137 H, Calcium 9.1, Troponin I < 0.01 11/16/21 14:10: PT 19.1 H, INR 1.76 H 11/16/21 17:30: Troponin I < 0.01 Result diagrams: 11/16/21 14:10 11/16/21 14:10 Orders (Tests/Meds): ORDERS Category Date Time Status Troponin I Q3H Lab 11/16/21 20:30 Ordered - ECG Data Tracing #1 nsr, low volt, no st elev Medical Decision Narrative: reeval, appears well vss, no cp here, ok with plan to f/u cardiology General Adult HPI - General Stated complaint: chest heaviness Time Seen by Provider: 11/16/21 14:28 Source of Information: Patient Limitations: No Limitations - History of Present Illness HPI narrative: chest discomfort sevveral days intermittent, non specific, no assoc symptoms Onset (ago): day(s) Radiation: non-radiation Severity: mild Consistency: intermittent Relieving factors: none Exacerbating factors: none Associated symptoms: denies other symptoms - Related Data Home Medications Medication Instructions Recorded Confirmed allopurinol 300 mg tablet 300 mg PO ONCE 11/28/17 11/17/20 docusate sodium 250 mg capsule 250 mg PO ONCE 11/28/17 11/17/20 fluticasone propionate 50 50 mcg INTRANASAL ONCE 11/28/17 11/17/20 mcg/actuation nasal spray,suspension gabapentin 300 mg capsule 300 mg PO TID 11/28/17 11/17/20 insulin aspart U-100 100 unit/mL 10 unit SUB-Q QAM 11/28/17 11/17/20 (3 mL) subcutaneous pen loratadine 10 mg tablet 10 mg PO ONCE 11/28/17 11/17/20 tamsulosin 0.4 mg capsule 0.4 mg PO ONCE 11/28/17 11/17/20 insulin degludec 200 unit/mL (3 25 unit SUB-Q QHS ml 02/07/18 11/17/20 mL) subcutaneous pen potassium chloride 10 mEq 10 meq PO BID tab 01/03/19 11/17/20 tablet,extended release insulin human U-100 NPH-regulr 20 unit SQ QAM ml 05/13/20 11/17/20 70-30 mix 100 unit/mL subcutaneous susp warfarin 5 mg tablet 6 mg PO ONCE tab 05/13/20 11/17/20 metformin 1,000 mg tablet 1,000 mg PO BID tab 02/23/21 02/23/21 Previous Rx's Medication Instructions Recorded atorvastatin 80 mg tablet 80 mg PO DAILY #90 tab 02/23/21 carvedilol 25 mg tablet 50 mg PO BID #360 tab 02/23/21 clopidogrel 75 mg tablet 75 mg PO DAILY #90 tab 0
[2021-11-16 14:32] LABS: Chloride 107 mmol/L (98-107); Sodium 142 mmol/L (136-145)
[2021-11-16 14:33] LABS: Potassium 4.5 mmoL/L (3.5-5.1)
[2021-11-16 14:35] LABS: Blood Urea Nitrogen 28 mg/dl (9-20); Creatinine Clearance Estimated 59 mL/min (50-200); Estimated Glomerular Filt Rate 47 ml/min (>60); GFR (African American) 56 ML/MIN (>60)
[2021-11-16 14:36] LABS: Calcium 9.1 mg/dl (8.4-10.2); Carbon Dioxide 32 mmol/L (22.0-30.0); Glucose 137 mg/dl (74-100)
[2021-11-16 14:37] LABS: Anion Gap 7.5 mEq/L (5-15)
[2021-11-16 14:50] LABS: Troponin I < 0.01 ng/ml (0.00-0.034)
[2021-11-16 15:08] VITALS: BP 152/91; PULSE 75; RESP 16; O2SAT 95
[2021-11-16 16:23] LABS: INR 1.76 (0.9-1.1); Prothrombin Time 19.1 seconds (10.1-12.5)
--- NOTE | 2021-11-16 16:28 | PC.NURSE ---
BLOOD SENT TO LAB FOR REPEAT TROP
[2021-11-16 17:07] LABS: Troponin I < 0.01 ng/ml (0.00-0.034)
[2021-11-16 17:24] VITALS: BP 151/74; PULSE 74; RESP 17; TEMP 36.9; O2SAT 96
== END 2021-11-16 17:26 | disposition home or self-care (01) ==
PROVIDERS: Emergency Provider Emergency Medicine; PCP Internal Medicine Adolescent Medicine
DX: R07.89 Other chest pain (principal); J44.9 Chronic obstructive pulmonary disease, unspecified; I25.10 Atherosclerotic heart disease of native coronary artery without angina pectoris; K21.9 Gastro-esophageal reflux disease without esophagitis; E78.5 Hyperlipidemia, unspecified; I10 Essential (primary) hypertension; Z87.891 Personal history of nicotine dependence
CPT/HCPCS: 71045; 80048; 84484; 85025; 85610; 93005; 99283

== ENCOUNTER 2021-12-29 10:53 | Outpatient (CLI) | payer MEDICARE, OTHER, SELFPAY ==
[2021-12-29 12:12] LABS: PHA INR Fingerstick 3.6 (0.9-1.1)
== END 2021-12-29 14:19 | disposition home or self-care (01) ==
LOC: ACC 10:54
PROVIDERS: PCP Internal Medicine Adolescent Medicine; Visit Provider Internal Medicine Adolescent Medicine
DX: Z51.81 Encounter for therapeutic drug level monitoring (principal); Z79.01 Long term (current) use of anticoagulants; Z95.2 Presence of prosthetic heart valve
CPT/HCPCS: 85610; 99211; G0463

== ENCOUNTER 2022-01-19 09:34 | Outpatient (CLI) | payer MEDICARE, OTHER, SELFPAY ==
[2022-01-19 12:59] LABS: PHA INR Fingerstick 3.8 (0.9-1.1)
== END 2022-01-19 13:00 | disposition home or self-care (01) ==
LOC: ACC 09:35
PROVIDERS: PCP Internal Medicine Adolescent Medicine; Visit Provider Internal Medicine Adolescent Medicine
DX: Z51.81 Encounter for therapeutic drug level monitoring (principal); Z79.01 Long term (current) use of anticoagulants; Z95.2 Presence of prosthetic heart valve
CPT/HCPCS: 85610; 99211; G0463

== ENCOUNTER 2022-02-15 08:02 | Outpatient (CLI) | payer MEDICARE, OTHER, SELFPAY ==
[2022-02-15 09:10] LABS: Prothrombin Time 57.1 seconds (10.1-12.5)
[2022-02-15 09:11] LABS: INR 5.75 (0.9-1.1)
[2022-02-15 14:50] LABS: PHA INR Fingerstick 4.8 (0.9-1.1)
== END 2022-02-15 15:04 | disposition home or self-care (01) ==
LOC: ACC 08:03 → LAB 08:16
PROVIDERS: PCP Internal Medicine Adolescent Medicine; Visit Provider Internal Medicine Adolescent Medicine
DX: Z51.81 Encounter for therapeutic drug level monitoring (principal); Z79.01 Long term (current) use of anticoagulants
CPT/HCPCS: 36415; 85610; 99211; G0463

== ENCOUNTER 2022-02-18 07:33 | Outpatient (CLI) | payer MEDICARE, OTHER, SELFPAY | END 2022-02-18 09:15 | disposition home or self-care (01) | LOC: ACC 07:37 | PROVIDERS: PCP Internal Medicine Adolescent Medicine; Visit Provider Internal Medicine Adolescent Medicine | DX: Z51.81 Encounter for therapeutic drug level monitoring (principal); Z79.01 Long term (current) use of anticoagulants; Z95.2 Presence of prosthetic heart valve | CPT/HCPCS: 85610; 99211; G0463 ==

== ENCOUNTER 2022-02-22 13:16 | Outpatient (CLI) | payer MEDICARE, OTHER, SELFPAY | END 2022-02-22 14:58 | disposition home or self-care (01) | LOC: ACC 13:16 | PROVIDERS: PCP Internal Medicine Adolescent Medicine; Visit Provider Internal Medicine Adolescent Medicine | DX: Z51.81 Encounter for therapeutic drug level monitoring (principal); Z79.01 Long term (current) use of anticoagulants; Z95.2 Presence of prosthetic heart valve | CPT/HCPCS: 99211; G0463 ==

== ENCOUNTER 2022-06-02 08:59 | Outpatient (CLI) | payer MEDICARE, OTHER, SELFPAY ==
[2022-06-02 09:39] LABS: PHA INR Fingerstick 4.7 (0.9-1.1)
== END 2022-06-02 09:41 | disposition home or self-care (01) ==
LOC: ACC 09:00
PROVIDERS: PCP Internal Medicine Adolescent Medicine; Visit Provider Internal Medicine Adolescent Medicine
DX: Z51.81 Encounter for therapeutic drug level monitoring (principal); Z79.01 Long term (current) use of anticoagulants; Z95.2 Presence of prosthetic heart valve
CPT/HCPCS: 85610; 99211; G0463

== ENCOUNTER 2022-06-14 11:20 | Outpatient (CLI) | payer MEDICARE, OTHER, SELFPAY ==
[2022-06-14 13:38] LABS: PHA INR Fingerstick 2.7 (0.9-1.1)
== END 2022-06-14 13:45 | disposition home or self-care (01) ==
LOC: ACC 11:23
PROVIDERS: PCP Internal Medicine Adolescent Medicine; Visit Provider Internal Medicine Adolescent Medicine
DX: Z51.81 Encounter for therapeutic drug level monitoring (principal); Z79.01 Long term (current) use of anticoagulants; Z95.2 Presence of prosthetic heart valve
CPT/HCPCS: 85610; 99211; G0463

== ENCOUNTER 2023-01-05 12:15 | Outpatient (CLI) | payer MEDICARE, OTHER, SELFPAY ==
[2023-01-05 13:08] LABS: PHA INR Fingerstick 3.3 (0.9-1.1)
== END 2023-01-05 13:09 ==
LOC: ACC 12:17
PROVIDERS: PCP Internal Medicine Adolescent Medicine; Visit Provider Internal Medicine Adolescent Medicine
DX: Z51.81 Encounter for therapeutic drug level monitoring (principal); Z79.01 Long term (current) use of anticoagulants; Z95.2 Presence of prosthetic heart valve
CPT/HCPCS: 85610; 99211; G0463

== ENCOUNTER → 2023-04-15 07:29 | Outpatient (CLI) | payer MEDICARE, OTHER, SELFPAY ==
[2023-04-15 10:08] LABS: Basophils # 0.1 K/mm3 (0-0.2); Basophils % 0.8 % (0.1-2.0); Eosinophils # 0.1 K/mm3 (0.0-0.4); Eosinophils % 1.7 % (0.1-12.0); Hematocrit 40.4 % (42.0-52.0); Hemoglobin 12.7 g/dL (14.1-18.0); Lymphocytes # 1.3 K/mm3 (0.7-4.5); Lymphocytes % 21.4 % (10-50); Mean Corpuscular HGB Conc 31.4 g/dL (31.8-35.4); Mean Corpuscular Volume 89.2 fl (80-94); Mean Platelet Volume 7.9 fl (7.4-10.4); Monocytes # 0.4 K/mm3 (0.1-1.0); Neutrophils # 4.1 K/mm3 (1.8-7.8); Neutrophils % 69.1 % (37.0-80.0); Platelet Count 220 K/mm3 (142-424); Red Blood Count 4.53 M/mm3 (4.60-6.20); Red Cell Distribution Width 14.8 % (11.5-17.5); White Blood Count 5.9 K/mm3 (4.8-10.8)
[2023-04-15 10:13] LABS: INR 2.07 (0.9-1.1); Prothrombin Time 21.5 seconds (10.1-12.5)
--- NOTE | 2023-04-15 14:38 | HMH.PHAINT1 ---
Pharmacy Intervention Comments: PATIENT HAD INR DRAWN IN LAB TODAY. INR 2.07. HAVING PATIENT TAKE WARFARIN 7.5 MG TODAY, THEN CONTINUE WITH WARFARIN 3.75 MG ON TUE/TUE/TUE; 7.5 MG ON TUE/TUE/TUE/TUE. WILL FOLLOW UP ON APRIL 27, 2023.
== END ==
PROVIDERS: PCP Internal Medicine Adolescent Medicine; Visit Provider Internal Medicine Adolescent Medicine
DX: Z51.81 Encounter for therapeutic drug level monitoring (principal); Z79.01 Long term (current) use of anticoagulants
CPT/HCPCS: 36415; 85025; 85610

== ENCOUNTER 2023-07-26 10:42 | Outpatient (CLI) | payer MEDICARE, OTHER, SELFPAY ==
[2023-07-26 12:51] LABS: INR 5.45 (0.9-1.1); Prothrombin Time 52.7 seconds (10.1-12.5)
[2023-07-26 13:41] LABS: PHA INR Fingerstick 4.8 (0.9-1.1)
== END 2023-07-26 13:44 ==
PROVIDERS: PCP Internal Medicine Adolescent Medicine; Visit Provider Internal Medicine Adolescent Medicine
DX: Z79.01 Long term (current) use of anticoagulants; Z51.81 Encounter for therapeutic drug level monitoring; Z95.2 Presence of prosthetic heart valve; R79.1 Abnormal coagulation profile
CPT/HCPCS: 36415; 85610; 99211; G0463

== ENCOUNTER 2023-08-03 12:52 | Outpatient (CLI) | payer MEDICARE, OTHER, SELFPAY ==
[2023-08-03 14:10] LABS: PHA INR Fingerstick 2.3 (0.9-1.1)
== END 2023-08-03 14:30 ==
LOC: ACC 12:53
PROVIDERS: PCP Internal Medicine Adolescent Medicine; Visit Provider Internal Medicine Adolescent Medicine
DX: Z79.01 Long term (current) use of anticoagulants (principal); Z51.81 Encounter for therapeutic drug level monitoring; Z95.2 Presence of prosthetic heart valve
CPT/HCPCS: 85610; 99211; G0463

== ENCOUNTER 2023-08-10 14:11 | Emergency (ER) | payer MEDICARE, OTHER, SELFPAY ==
[2023-08-10 14:13] VITALS: BP 139/75; PULSE 67; RESP 17; TEMP 36.8; O2SAT 94; BMI 26.4
--- NOTE | 2023-08-10 14:30 | PC.NURSE ---
Bladder scanned patient: upon assessment >283mL of urine in bladder
--- NOTE | 2023-08-10 14:50 | PC.NURSE ---
Called [facility] for transfer, awaiting corrections corporal back.
[2023-08-10 15:00] VITALS: BP 128/79; PULSE 75; RESP 20; O2SAT 95
--- NOTE | 2023-08-10 15:00 | PC.NURSE ---
Went into room with Kristy CAVAZOS to attempt to place a santiago. Kristy was unable to get past the foreskin to insert. notified
--- NOTE | 2023-08-10 15:10 | HMH.EDGENADL ---
Discharge Plan Disposition Patient Disposition: Xfer Short-Term Hosp Condition: Good Prescriptions Prescriptions: No Action allopurinol 300 mg tablet 300 mg PO DAILY loratadine [Claritin] 10 mg tablet 10 mg PO DAILY fluticasone propionate [Flonase Allergy Relief] 50 mcg/actuation spray,suspension 50 mcg INTRANASAL DAILYP PRN (Reason: ALLERGIES) gabapentin 300 mg capsule 300 mg PO TID insulin aspart U-100 [Novolog FlexPen U-100 Insulin] 100 unit/mL insulin pen 10 unit SUB-Q QAM docusate sodium 250 mg capsule 250 mg PO DAILYP PRN (Reason: Constipation) tamsulosin [Flomax] 0.4 mg capsule,extended release 24hr 0.4 mg PO HS potassium chloride [Klor-Con 10] 10 mEq tablet extended release 10 meq PO BID Humulin 70/30 U-100 Insulin 100 unit/mL (70-30) suspension 20 unit SQ QAM insulin degludec [Tresiba FlexTouch U-200] 200 unit/mL (3 mL) insulin pen 25 unit SUB-Q HS metformin 1,000 mg tablet 1,000 mg PO BID carvedilol 25 mg tablet 50 mg PO BID Qty: 360 3RF warfarin 7.5 mg Tablet 3.75 mg PO SUTUTHSA warfarin 7.5 mg Tablet 7.5 mg PO MOWEFR atorvastatin 80 mg tablet 80 mg PO HS hydrochlorothiazide 50 mg tablet 50 mg PO DAILY Rx Instructions: TAKE 1 TABLET BY MOUTH DAILY isosorbide mononitrate 30 mg tablet extended release 24 hr 30 mg PO DAILY Rx Instructions: TAKE 1 TABLET BY MOUTH DAILY clopidogrel 75 mg tablet 75 mg PO DAILY Rx Instructions: TAKE 1 TABLET BY MOUTH DAILY FOR BLOOD THINNER omeprazole 40 mg capsule,delayed release(DR/EC) 20 mg PO DAILY losartan 100 mg tablet 100 mg PO DAILY Rx Instructions: TAKE 1 TABLET BY MOUTH DAILY FOR BLOOD PRESSURE Referrals Follow up/Referrals: Humphrey Chavarria MD [Primary Care Provider] - See instructions Clinical Impressions Clinical Impression: Acquired phimosis of penis, Acute urinary retention Stand Alone Forms Stand Alone Forms: Transfer Record - ED Instructions Patient Instructions: DI for Urinary Tract Infection (UTI), DI for Urinary Tract Infection in Children Discharge ED Provider: Yovany Reyes General Adult HPI General Chief complaint: Urogenital-Male Stated complaint: TROUBLE URINATING Time Seen by Provider: 08/10/23 14:14 Mode of Arrival: Ambulatory Source of Information: Patient Limitations: No Limitations Description of Symptoms (Recalled from ER Triage Doc. by RN): Presents to ED with c/o enability to urinate since this morning. Last urinated at approx. 0800. Patient reports he is uncircumsized and states his foreskin is closed over his penial opening. Patient stated he has burning when peeing and urinary urgency. Patient further states he has been sticking foreign objected to keep skin open. +Coumadin and Plavix. History of Present Illness HPI narrative: 67-year-old male history of hypertension, hyperlipidemia, aortic and mitral valve mechanical replacement is currently on Coumadin and Plavix, diabetes, phimosis presenting with difficulty urinating. Patient states that this been on and off for the last year. Last urinated this morning, around 8 AM. Having lower abdominal tenderness and distention. No fevers or chills, nausea or vomiting. No evidence of urinary discharge or bleeding. Related Data Home Medications Medication Instructions Recorded Confirmed allopurinol 300 mg tablet 300 mg PO DAILY gout 11/28/17 07/26/23 docusate sodium 250 mg capsule 250 mg PO DAILYP PRN Constipation 11/28/17 07/26/23 fluticasone propionate 50 50 mcg intranasal DAILYP PRN 11/28/17 07/26/23 mcg/actuation nasal ALLERGIES spray,suspension (Flonase Allergy Relief) gabapentin 300 mg capsule 300 mg PO TID NEUROPATHY 11/28/17 07/26/23 insulin aspart U-100 100 unit/mL 10 unit SUB-Q QAM Diabetes 11/28/17 07/26/23 (3 mL) subcutaneous pen (Novolog FlexPen U-100 Insulin aspart) loratadine 10 mg tablet (Clariti
--- NOTE | 2023-08-10 15:15 | PC.NURSE ---
[facility] unable to take pt.
--- NOTE | 2023-08-10 15:26 | PC.NURSE ---
placed call to [facility] for transfer, awaiting call back.
[2023-08-10 15:30] VITALS: BP 145/73; PULSE 72; RESP 18; O2SAT 95
--- NOTE | 2023-08-10 15:47 | PC.NURSE ---
Dr Bautista with urology accepting pt.
[2023-08-10 15:52] LABS: Basophils % 0.6 % (0.1-2.0); Eosinophils # 0.1 K/mm3 (0.0-0.4); Eosinophils % 1.1 % (0.1-12.0); Hematocrit 37.6 % (42.0-52.0); Hemoglobin 12.6 g/dL (14.1-18.0); Lymphocytes # 1.1 K/mm3 (0.7-4.5); Lymphocytes % 16.6 % (10-50); Mean Corpuscular HGB Conc 33.7 g/dL (31.8-35.4); Mean Corpuscular Hemoglobin 30.6 pg (27.0-31.2); Mean Platelet Volume 7.7 fl (7.4-10.4); Monocytes # 0.4 K/mm3 (0.1-1.0); Monocytes % 5.5 % (1.7-9.3); Neutrophils # 5.1 K/mm3 (1.8-7.8); Neutrophils % 76.2 % (37.0-80.0); Platelet Count 169 K/mm3 (142-424); Red Blood Count 4.13 M/mm3 (4.60-6.20); Red Cell Distribution Width 14.7 % (11.5-17.5); White Blood Count 6.7 K/mm3 (4.8-10.8)
[2023-08-10 15:58] LABS: Chloride 109 mmol/L (98-107)
[2023-08-10 15:59] LABS: Potassium 4.5 mmoL/L (3.5-5.1); Sodium 140 mmol/L (136-145)
[2023-08-10 16:01] LABS: Alanine Aminotransferase 23 U/L (12-78); Alkaline Phosphatase 91 U/L (38-126); Anion Gap 9.5 mEq/L (5-15); Aspartate Amino Transferase 34 U/L (17-59); Bilirubin,Total 0.9 mg/dl (0.2-1.3); Blood Urea Nitrogen 37 mg/dl (9-20); Carbon Dioxide 26 mmol/L (22.0-30.0); Creatinine Clearance Estimated 53 mL/min (50-200); Estimated Glomerular Filt Rate 43 ml/min (>60); GFR (African American) 52 ML/MIN (>60)
[2023-08-10 16:02] LABS: Albumin Level 3.3 g/dl (3.5-5.0); Calcium 8.4 mg/dl (8.4-10.2); Globulin 3.2 g/dL (1.3-3.2); Glucose 217 mg/dl (74-100); Total Protein,Serum 6.5 g/dl (6.3-8.2)
--- NOTE | 2023-08-10 16:23 | PC.NURSE ---
Called reports to [facility] charge nurse
[2023-08-10 16:42] VITALS: BP 145/73; PULSE 72; RESP 17; TEMP 36.8; O2SAT 95
== END 2023-08-10 17:09 | disposition short-term general hospital (02) ==
PROVIDERS: Emergency Provider Emergency Medicine; PCP Internal Medicine Adolescent Medicine
DX: N47.1 Phimosis (principal); R33.9 Retention of urine, unspecified; R10.30 Lower abdominal pain, unspecified; I11.9 Hypertensive heart disease without heart failure; E78.5 Hyperlipidemia, unspecified; E11.9 Type 2 diabetes mellitus without complications; Z87.891 Personal history of nicotine dependence; Z79.01 Long term (current) use of anticoagulants; Z79.4 Long term (current) use of insulin; Z95.5 Presence of coronary angioplasty implant and graft
CPT/HCPCS: 80053; 85025; 99285

== ENCOUNTER 2023-08-31 09:48 | Outpatient (CLI) | payer MEDICARE, OTHER, SELFPAY ==
[2023-08-31 10:15] LABS: PHA INR Fingerstick 2.7 (0.9-1.1)
== END 2023-08-31 10:16 ==
LOC: ACC 09:49
PROVIDERS: PCP Internal Medicine Adolescent Medicine; Visit Provider Internal Medicine Adolescent Medicine
DX: Z79.01 Long term (current) use of anticoagulants (principal); Z51.81 Encounter for therapeutic drug level monitoring; Z95.2 Presence of prosthetic heart valve
CPT/HCPCS: 85610; 99211; G0463

== ENCOUNTER 2023-09-28 14:30 | Outpatient (CLI) | payer MEDICARE, OTHER, SELFPAY ==
[2023-09-28 16:16] LABS: PHA INR Fingerstick 3.9 (0.9-1.1)
== END 2023-09-28 16:18 ==
LOC: ACC 14:32
PROVIDERS: PCP Internal Medicine Adolescent Medicine; Visit Provider Internal Medicine Adolescent Medicine
DX: Z79.01 Long term (current) use of anticoagulants (principal); Z51.81 Encounter for therapeutic drug level monitoring; Z95.2 Presence of prosthetic heart valve
CPT/HCPCS: 85610; 99211; G0463

== ENCOUNTER 2023-10-13 10:07 | Outpatient (CLI) | payer MEDICARE, OTHER, SELFPAY ==
[2023-10-13 11:26] LABS: INR 5.14 (0.9-1.1); Prothrombin Time 49.9 seconds (10.1-12.5)
[2023-10-13 13:41] LABS: PHA INR Fingerstick 4.9 (0.9-1.1)
== END 2023-10-13 13:43 ==
PROVIDERS: PCP Internal Medicine Adolescent Medicine; Visit Provider Internal Medicine Adolescent Medicine
DX: Z51.81 Encounter for therapeutic drug level monitoring; Z79.01 Long term (current) use of anticoagulants; Z95.2 Presence of prosthetic heart valve
CPT/HCPCS: 36415; 85610; 99211; G0463

== ENCOUNTER 2023-10-26 12:23 | Outpatient (CLI) | payer MEDICARE, OTHER, SELFPAY | END 2023-10-26 15:41 | LOC: ACC 12:24 | PROVIDERS: PCP Internal Medicine Adolescent Medicine; Visit Provider Internal Medicine Adolescent Medicine | DX: Z79.01 Long term (current) use of anticoagulants (principal); Z51.81 Encounter for therapeutic drug level monitoring; Z95.2 Presence of prosthetic heart valve | CPT/HCPCS: 99211; G0463 ==

== ENCOUNTER 2023-11-14 12:44 | Outpatient (CLI) | payer MEDICARE, OTHER, SELFPAY ==
[2023-11-14 14:04] LABS: PHA INR Fingerstick 2.5 (0.9-1.1)
== END 2023-11-14 14:15 ==
LOC: ACC 12:46
PROVIDERS: PCP Internal Medicine Adolescent Medicine; Visit Provider Internal Medicine Adolescent Medicine
DX: Z79.01 Long term (current) use of anticoagulants (principal); Z51.81 Encounter for therapeutic drug level monitoring; Z95.2 Presence of prosthetic heart valve
CPT/HCPCS: 85610; 99211; G0463

== ENCOUNTER 2024-01-11 09:09 | Outpatient (CLI) | payer MEDICARE, OTHER, SELFPAY ==
--- NOTE | 2024-01-11 09:13 | XR_ITS ---
FINAL REPORT CLINICAL HISTORY: CHRONIC COUGH COMPARISON: 11/16/2021 FINDINGS: Two views of the chest were obtained. Prior median sternotomy. The heart size and pulmonary vascularity are within normal limits. The mediastinum is normal. No acute pulmonary abnormality is identified. There is a partially improved left pleural effusion. There is no pneumothorax. The bony thorax is intact. IMPRESSION: No active cardiopulmonary disease. Partially improved left pleural effusion. Reviewed, Interpreted and Dictated by Fernando Muñoz III, MD Transcribed by Roxanne Benitez Authenticated and [facility]
[2024-01-11] MEDS: ALBUTEROL 0.083% 2.5 MG/3 ML NEB IH (10:36)
== END 2024-01-11 23:59 ==
LOC: RT 09:10
PROVIDERS: PCP Internal Medicine Adolescent Medicine; Visit Provider Internal Medicine Adolescent Medicine
DX: R05.3 Chronic cough (principal)
CPT/HCPCS: 71046; 94060; 94726; 94729

== ENCOUNTER 2024-07-31 13:44 | Outpatient (CLI) | payer MEDICARE, OTHER, SELFPAY ==
--- NOTE | 2024-07-31 | CA_ITS ---
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 244.0 (50-130 cm/s) AO Peak GR. 23.90 mmHg AO Mean GR. 10.70 (<5 mmHg) AO VTI 42.9 (18-25 cm) CRISTIAN (VTI) 1.41 (2.5-4.5 cm2) Mitral Valve MV E Max Cheng. 145.0 (40-130 cm/s) MV A Velocity 86.0 (40-130 cm/s) E/A Ratio 1.69 MV Mean Gr. 3.80 (<2mmHg) MV PHT 46.0 ms Pulmonary Valve PV Peak Velocity 285.0 (50-150 cm/s) Tricuspid Valve TR P. Velocity 330.00 cm/s RAP Estimate 10.00 mmHg RVSP 53.70 mmHg Left Ventricle The left ventricle is normal size. Left ventricular systolic function is mildly decreased. There is increased LV wall thickness. Diastolic function is indeterminate. No regional wall motion abnormalities are noted. LVEF is 45%. Right Ventricle The right ventricle is mildly dilated. The right ventricular systolic function is normal. Atria Left atrium is mildly dilated. Right atrium is mildly dilated. There is no Doppler evidence of interatrial shunt. Aortic Valve s/p TAVR. The prosthesis is well-seated. Peak velocity 1.9 m/s. Mean AV gradient 8 mmHg. Max AV gradient 17 mmHg. Trace central aortic regurgitation. No evidence of paravalvular leak. Mitral Valve s/p MVR. The prosthesis is well-seated. Mean MV gradient 4 mmHg (HR 72 bpm). Trace mitral regurgitation. Tricuspid Valve The tricuspid valve leaflets are thin and pliable. Mild tricuspid regurgitation. RVSP is 45-50 mmHg. Pulmonic Valve The pulmonary valve is normal in structure. Mild pulmonic regurgitation. Great Vessels The aortic root is normal in size. The ascending aorta is mildly dilated, measuring 3.9 cm in diameter. IVC is normal in size and collapses >50% with inspiration. Pericardium There is no pericardial effusion. Other Information Study Quality: Fair Conclusion Mildly reduced LV systolic function (LVEF 45%). Mild RV dilation with normal RV function. Biatrial dilation. s/p TAVR. Acceptable transaortic parameters. s/p MVR. Acceptable transmitral parameters. Mild TR. Elevated RVSP 45-50 mmHg. When directly compared to the prior study from 2020, the LVEF and transaortic and transmitral gradients are overall unchanged. The mild TR and elevated RVSP are new. Electronically signed by : Isabelle Herrera MD 08/06/2024 00:12:32
== END 2024-07-31 23:59 | disposition home or self-care (01) ==
LOC: RT 13:46
PROVIDERS: PCP Internal Medicine Adolescent Medicine; Visit Provider Internal Medicine Adolescent Medicine
DX: I50.22 Chronic systolic (congestive) heart failure (principal); I51.7 Cardiomegaly
CPT/HCPCS: 93306

== ENCOUNTER 2025-01-02 01:53 | Emergency (ER) | payer MEDICARE, OTHER, SELFPAY ==
[2025-01-02 02:00] VITALS: BP 168/109; PULSE 80; O2SAT 95
[2025-01-02 02:03] VITALS: BP 168/109; PULSE 77; RESP 22; TEMP 36.6; O2SAT 91; BMI 26.4
--- NOTE | 2025-01-02 02:12 | PC.NURSE ---
provider at the bedside
--- NOTE | 2025-01-02 02:18 | XR_ITS ---
PROCEDURE INFORMATION: Exam: XR Chest Exam date and time: 01/02/2025 2:31 AM Age: 69 years old Clinical indication: Other: Weakness; Additional info: Leg swelling general weakness TECHNIQUE: Imaging protocol: Radiologic exam of the chest. Views: 2 views. COMPARISON: CR XR CHEST 2V 01/11/2024 9:15 AM FINDINGS: Tubes, catheters and devices: Sternal wires and ostial markers present. Lungs: Unremarkable. No consolidation. Pleural spaces: Unremarkable. No pleural effusion. No pneumothorax. Heart/Mediastinum: The heart is enlarged. The aorta is calcified. Vasculature: There are prosthetic aortic and mitral valves. Bones/joints: Unremarkable. IMPRESSION: No acute disease. Stable cardiomegaly.
--- NOTE | 2025-01-02 02:18 | CT_ITS ---
PROCEDURE INFORMATION: Exam: CT Head Without Contrast Exam date and time: 01/02/2025 2:48 AM Age: 69 years old Clinical indication: Stroke-like symptoms; Lt upper extremity weakness; Additional info: Lue sensation changes TECHNIQUE: Imaging protocol: Computed tomography of the head without contrast. Radiation optimization: All CT scans at this facility use at least one of these dose optimization techniques: automated exposure control; mA and/or kV adjustment per patient size (includes targeted exams where dose is matched to clinical indication); or iterative reconstruction. Other technique: STROKE PROTOCOL was implemented. COMPARISON: No relevant prior studies available. FINDINGS: Brain: Mild cerebral and cerebellar atrophy. No hemorrhage. Symmetric hypoattenuation in the periventricular white matter. No mass or mass effect. Pineal calcification. Cerebral ventricles: Mild ventriculomegaly. Paranasal sinuses: Mucosal thickening in the maxillary and ethmoid sinuses. Mastoid air cells: Visualized mastoid air cells are well aerated. Bones: Unremarkable. No acute fracture. Soft tissues: Unremarkable. IMPRESSION: 1. No acute intracranial abnormality. 2. Age-related cortical atrophy. 3. Hypoattenuation in the periventricular white matter, suspicious for small vessel ischemic disease. ASSESSMENT: ASPECTS ([facility] Stroke Program Early CT Score) is 8.
--- NOTE | 2025-01-02 02:18 | CT_ITS ---
PROCEDURE INFORMATION: Exam: CTA Neck With Contrast Exam date and time: 01/02/2025 2:51 AM Age: 69 years old Clinical indication: Stroke-like symptoms; Lt upper extremity weakness; Additional info: Lue sensation changes TECHNIQUE: Imaging protocol: Computed tomographic angiography of the neck with contrast. Exam focused on the cervical segments of the vasculature. 3D rendering (Not supervised by radiologist): MIP and/or 3D reconstructed images were created by the technologist. Radiation optimization: All CT scans at this facility use at least one of these dose optimization techniques: automated exposure control; mA and/or kV adjustment per patient size (includes targeted exams where dose is matched to clinical indication); or iterative reconstruction. Contrast material: ISOVUE; Contrast volume: 80 ml; Contrast route: INTRAVENOUS (IV); COMPARISON: CT HEAD/BRAIN WO CON 01/02/2025 2:48 AM FINDINGS: Right common carotid artery: No stenosis. No dissection or occlusion. Right internal carotid artery: No stenosis of the extracranial segment. No dissection or occlusion. Right external carotid artery: No occlusion or stenosis of the origin. Left common carotid artery: No stenosis. No dissection or occlusion. Left internal carotid artery: No stenosis of the extracranial segment. No dissection or occlusion. Left external carotid artery: No occlusion or stenosis of the origin. Right vertebral artery: No stenosis. No dissection or occlusion. Left vertebral artery: No stenosis. No dissection or occlusion. Soft tissues: Normal. No significant soft tissue swelling. Bones/joints: Degenerative changes in the spine. IMPRESSION: No significant stenosis. No major branch occlusion. REFERENCES: NASCET CRITERIA. The degree of stenosis in the cervical segment of the internal carotid artery is based on NASCET criteria. Normal is no stenosis. Mild is less than 50% stenosis. Moderate is 50-69% stenosis. Severe is 70% to 99% stenosis. Total occlusion is no detectable patent lumen.
--- NOTE | 2025-01-02 02:18 | CT_ITS ---
PROCEDURE INFORMATION: Exam: CTA Head With Contrast, Arteriography Exam date and time: 01/02/2025 2:51 AM Age: 69 years old Clinical indication: Stroke-like symptoms; Lt upper extremity weakness; Additional info: Lue sensation changes TECHNIQUE: Imaging protocol: Computed tomographic angiography of the head with contrast. Exam focused on the arteries. 3D rendering (Not supervised by radiologist): MIP and/or 3D reconstructed images were created by the technologist. Radiation optimization: All CT scans at this facility use at least one of these dose optimization techniques: automated exposure control; mA and/or kV adjustment per patient size (includes targeted exams where dose is matched to clinical indication); or iterative reconstruction. Contrast material: ISOVUE; Contrast volume: 80 ml; Contrast route: INTRAVENOUS (IV); COMPARISON: CT HEAD/BRAIN WO CON 01/02/2025 2:48 AM FINDINGS: ANTERIOR CIRCULATION: Right internal carotid artery: Calcification and mild stenosis of the right ICA. Right middle cerebral artery: No occlusion or significant stenosis. No aneurysm. Right anterior cerebral artery: No occlusion or significant stenosis. No aneurysm. Left internal carotid artery: Calcification and mild stenosis of the left ICA. Left middle cerebral artery: No occlusion or significant stenosis. No aneurysm. Left anterior cerebral artery: No occlusion or significant stenosis. No aneurysm. POSTERIOR CIRCULATION: Right vertebral artery: Right vertebral artery dominance. Left vertebral artery: No occlusion or significant stenosis. No aneurysm. Basilar artery: No occlusion or significant stenosis. No aneurysm. Right posterior cerebral artery: origin of the right PARAKEET RAISER. Left posterior cerebral artery: No occlusion or significant stenosis. No aneurysm. Brain: No definite mass, mass effect, or midline shift. Cerebral ventricles: No ventriculomegaly. Bones/joints: Unremarkable. No acute fracture. Soft tissues: Unremarkable. IMPRESSION: 1. Calcification and mild stenosis of the right ICA. 2. Calcification and mild stenosis of the left ICA.
[2025-01-02 02:25] LABS: Basophils # 0.1 K/mm3 (0-0.2); Basophils % 1.3 % (0.1-2.0); Eosinophils # 0.1 K/mm3 (0.0-0.4); Eosinophils % 1.6 % (0.1-12.0); Hematocrit 38.8 % (42.0-52.0); Hemoglobin 12.2 g/dL (14.1-18.0); Lymphocytes % 12.9 % (10-50); Mean Corpuscular HGB Conc 31.4 g/dL (31.8-35.4); Mean Corpuscular Hemoglobin 27.7 pg (27.0-31.2); Mean Platelet Volume 9.7 fl (7.4-10.4); Monocytes # 0.5 K/mm3 (0.1-1.0); Monocytes % 6.6 % (1.7-9.3); Neutrophils # 5.8 K/mm3 (1.8-7.8); Neutrophils % 77.5 % (37.0-80.0); Platelet Count 231 K/mm3 (142-424); Red Blood Count 4.41 M/mm3 (4.60-6.20); Red Cell Distribution Width 15.2 % (11.5-17.5); White Blood Count 7.5 K/mm3 (4.8-10.8)
[2025-01-02 02:28] LABS: Albumin Level 3.4 g/dl (3.5-5.0); Chloride 105 mmol/L (98-107); Sodium 136 mmol/L (136-145)
[2025-01-02 02:29] LABS: Potassium 4.5 mmoL/L (3.5-5.1)
[2025-01-02 02:31] LABS: Lactate Venous 0.9 mmol/L (0.4-2.0); VBG Base Excess -1.3 mmol/L (-2.4-2.3); VBG HCO3 24.6 mmol/L (23-30); VBG Oxygen Saturation 80.3 % (50-70); VBG PCO2 47.8 mmol/L (35-51); VBG PH 7.33 mmol/L (7.31-7.41); VBG Total CO2 26.1 mmol/L (23-27)
[2025-01-02 02:31] LABS: Alanine Aminotransferase 21 U/L (12-78); Anion Gap 5.5 mEq/L (5-15); Aspartate Amino Transferase 32 U/L (17-59); Blood Urea Nitrogen 20 mg/dl (9-20); Carbon Dioxide 30 mmol/L (22.0-30.0); Creatinine Clearance Estimated 64 mL/min (50-200); Estimated Glomerular Filt Rate 54 ml/min (>60); GFR (African American) 66 ML/MIN (>60)
[2025-01-02 02:32] LABS: Albumin/Globulin Ratio 1.1 (1.1-1.8); Alkaline Phosphatase 116 U/L (38-126); Bilirubin,Total 0.9 mg/dl (0.2-1.3); Calcium 9.4 mg/dl (8.4-10.2); Globulin 3.2 g/dL (1.3-3.2); Glucose 76 mg/dl (74-100); INR 3.07 (0.9-1.1); Prothrombin Time 30.8 seconds (10.1-12.5); Total Protein,Serum 6.6 g/dl (6.3-8.2)
--- NOTE | 2025-01-02 02:34 | ECG_ITS ---
APPROVED REPORT Exam: Resting ECG HR:68 bpm ECG Measurements Heart Rate 68 AXES HI 163 P 47 QRSd 122 QRS 44 QT 441 T -53 QTc 459 Conclusion SINUS RHYTHM WITH OCCASIONAL ECTOPIC PREMATURE COMPLEXES INFERIOR MYOCARDIAL INFARCTION , OF INDETERMINATE AGE [40+ ms Q WAVE AND/OR ST/T ABNORMALITY IN II/aVF] MODERATE T-WAVE ABNORMALITY, CONSIDER LATERAL ISCHEMIA [-0.1+ mV T-WAVE IN I/aVL/V5/V6] Findings similar to previous, no STEMI Electronically signed by : NICOLE GONZALEZ, 01/02/2025 06:19:09
[2025-01-02 02:36] VITALS: BP 122/72; PULSE 69; O2SAT 96
[2025-01-02 02:41] LABS: NT Pro Brain Natriuretic Pep. 5420 pg/mL (0-125)
[2025-01-02 02:45] LABS: Coronavirus 19, PCR Not Detected (NotDetected); Human Rhinovirus Not Detected (NotDetected); Influenza A, PCR Not Detected (NotDetected); Influenza B, PCR Not Detected (NotDetected); Respiratory Syncytial Virus Not Detected (NotDetected)
[2025-01-02 02:52] LABS: D-Dimer 0.39 ug/mL (0.0-0.5)
--- NOTE | 2025-01-02 02:53 | ED_ITS ---
Discharge Plan Disposition Patient Disposition: Home, Self-Care Condition: Fair Prescriptions Prescriptions: New furosemide 20 mg tablet 20 mg PO DAILY Qty: 2 0RF No Action allopurinol 300 mg tablet 300 mg PO DAILY loratadine [Claritin] 10 mg tablet 10 mg PO DAILY fluticasone propionate [Flonase Allergy Relief] 50 mcg/actuation spray,suspension 50 mcg INTRANASAL DAILYP PRN (Reason: ALLERGIES) gabapentin 300 mg capsule 300 mg PO TID insulin aspart U-100 [Novolog FlexPen U-100 Insulin] 100 unit/mL insulin pen 10 unit SUB-Q QAM docusate sodium 250 mg capsule 250 mg PO DAILYP PRN (Reason: Constipation) tamsulosin [Flomax] 0.4 mg capsule,extended release 24hr 0.4 mg PO HS potassium chloride [Klor-Con 10] 10 mEq tablet extended release 10 meq PO BID Humulin 70/30 U-100 Insulin 100 unit/mL (70-30) suspension 20 unit SQ QAM insulin degludec [Tresiba FlexTouch U-200] 200 unit/mL (3 mL) insulin pen 25 unit SUB-Q HS metformin 1,000 mg tablet 1,000 mg PO BID carvedilol 25 mg tablet 50 mg PO BID Qty: 360 3RF warfarin 7.5 mg Tablet 3.75 mg PO SUTUTHSA warfarin 7.5 mg Tablet 7.5 mg PO MOWEFR atorvastatin 80 mg tablet 80 mg PO HS hydrochlorothiazide 50 mg tablet 50 mg PO DAILY Rx Instructions: TAKE 1 TABLET BY MOUTH DAILY isosorbide mononitrate 30 mg tablet extended release 24 hr 30 mg PO DAILY Rx Instructions: TAKE 1 TABLET BY MOUTH DAILY clopidogrel 75 mg tablet 75 mg PO DAILY Rx Instructions: TAKE 1 TABLET BY MOUTH DAILY FOR BLOOD THINNER omeprazole 40 mg capsule,delayed release(DR/EC) 20 mg PO DAILY losartan 100 mg tablet 100 mg PO DAILY Rx Instructions: TAKE 1 TABLET BY MOUTH DAILY FOR BLOOD PRESSURE Referrals Follow up/Referrals: Humphrey Chavarria MD [Primary Care Provider] - See instructions (Fluid overloaded, prescribed short course of lasix, please see immediately to recheck labs and consider senior living management. Thank you) Activity Restrictions/Add. Instructions Additional Instructions/Restrictions: You were evaluated in the ER and are appropriate for discharge at this time. Continue taking your home medications as previously prescribed. Also take the newly prescribed furosemide (Lasix). This is a water pill. You should take it , 01/03/2025, and 01/04/2025. Call Dr. Chavarria's office first thing this morning and make an appointment to be seen by him in the next 1 to 2 days. It is extremely important that you see him immediately to have your labs rechecked and make sure you are tolerating the water pill. He also should evaluate what medications you may need long-term to control your swelling. Return to the ER with any new, worsening, or otherwise concerning symptoms as discussed. Clinical Impressions Clinical Impression: Edema, peripheral, Elevated brain natriuretic peptide (BNP) level Print Language Print Language: [place] Verde[place] Discharge ED Provider: Jessie Valadez General Adult HPI General Chief complaint: Extremity Problem,Nontraumatic Stated complaint: swelling feet and legs, numbness L hand Time Seen by Provider: 01/02/25 02:11 Mode of Arrival: Ambulatory Source of Information: Patient and Spouse Description of Symptoms (Recalled from ER Triage Doc. by RN): pt presents with initial complaint of BLE swelling since taking entire course of entresto prescribed per PCP. Pt then continues to say that he woke up aprrox 1500 yesterday with numbness and tingling to his left hand, which was normal before going to sleep. Pt has negative FAST screening at this time. Pt reports associated abd burning that has been going on awhile History of Present Illness HPI narrative: 69-year-old male presents to the ER with complaint of bilateral lower extremity swelling. Patient reports he was on Entresto for 30 days and after completing it started having leg swelling. He finished this prescription at the end of November approximately 2 weeks ago. Patient also states he woke up yesterday morning with a tingling sensation in his left hand. He states he sometimes has this and it usually comes and goes but his stayed present all day today. He states he has no numbness or weakness but the hand feels tingly. Patient reports no history of stroke. He does have a history of CAD, cardiomyopathy, multiple mechanical valves. Patient reports he is not on any fluid pills because his PCP was worried about stressing his kidneys. He states he is a bad diabetic and takes insulin. Patient reports he was on the Entresto instead of fluid pills. Patient reports no recent fevers, chills, chest pain, difficulty breathing, no numbness, weakness, dizziness, headache, vision changes, abdominal complaints, or other associated symptoms. He reports he is felt weird all day Related Data Home Medications ?Medication ?Instructions ?Recorded ?Confirmed allopurinol 300 mg tablet 300 mg PO DAILY gout 11/28/17 07/26/23 docusate sodium 250 mg capsule 250 mg PO DAILYP PRN Constipation 11/28/17 07/26/23 fluticasone propionate 50 50 mcg intranasal DAILYP PRN 11/28/17 07/26/23 mcg/actuation nasal ALLERGIES spray,suspension (Flonase Allergy Relief) gabapentin 300 mg capsule 300 mg PO TID NEUROPATHY 11/28/17 07/26/23 insulin aspart U-100 100 unit/mL 10 unit SUB-Q QAM Diabetes 11/28/17 07/26/23 (3 mL) subcutaneous pen (Novolog FlexPen U-100 Insulin aspart) loratadine 10 mg tablet (Claritin) 10 mg PO DAILY Allergies 11/28/17 07/26/23 tamsulosin 0.4 mg capsule (Flomax) 0.4 mg PO HS bladder 11/28/17 07/26/23 insulin degludec 200 unit/mL (3 25 unit SUB-Q HS Diabetes 02/07/18 07/26/23 mL) subcutaneous pen (Tresiba FlexTouch U-200 insulin) potassium chloride 10 mEq 10 meq PO BID Supplement 01/03/19 07/26/23 tablet,extended release (Klor-Con) insulin human U-100 NPH-regulr 20 unit SQ QAM Diabetes 05/13/20 07/26/23 70-30 mix 100 unit/mL subcutaneous susp (Humulin 70/30 U-100 Insulin) metformin 1,000 mg tablet 1,000 mg PO BID Diabetes 02/23/21 07/26/23 atorvastatin 80 mg tablet 80 mg PO HS Cholesterol 07/26/23 07/26/23 clopidogrel 75 mg tablet 75 mg PO DAILY Blood Thinner 07/26/23 07/26/23 hydrochlorothiazide 50 mg tablet 50 mg PO DAILY Blood pressure/fluid 07/26/23 07/26/23 isosorbide mononitrate 30 mg 30 mg PO DAILY Blood pressure 07/26/23 07/26/23 tablet,extended release 24 hr losartan 100 mg tablet 100 mg PO DAILY Blood pressure 07/26/23 07/26/23 omeprazole 40 mg capsule,delayed 20 mg PO DAILY acid reflux 07/26/23 07/26/23 release warfarin 7.5 mg tablet 3.75 mg PO SUTUTHSA Blood Thinner 07/26/23 07/26/23 warfarin 7.5 mg tablet 7.5 mg PO MOWEFR Blood Thinner 07/26/23 07/26/23 Previous Rx's ?Medication ?Instructions ?Recorded carvedilol 25 mg tablet 50 mg (2 x 25 mg) PO BID Heartburn 02/23/21 #360 tabs furosemide 20 mg tablet 20 mg PO DAILY #2 tabs 01/02/25 Allergies Allergy/AdvReac Type Severity Reaction Status Date / Time aspirin (ASPIRIN) Allergy Unknown Verified 02/23/21 09:[address] [facility] Disclaimer: The information contained in this section may have been updated after the patient was seen, as this information can be updated by other users. Medical History (Updated 01/02/25 @ 03:55 by Jessie Valadez MD) Abnormal EKG Dyspnea Surgical History (Updated 07/04/19 @ 10:28 by Kati Aguilar RN) H/O mitral valve replacement with mechanical valve Hx of aortic valve replacement, mechanical Social History Smoking Status: Never smoker alcohol intake: never substance use type: denies use current occupational status: other Travel in the last 8 weeks: Inside the [place] caffeine: Yes Have you lived/traveled outside US in past 30 days?: No Contact w/someone who lives/traveled outside US past 30 days?: No Exposure to someone with infectious disease in past 14 days?: No Do you have a fever (greater than 100.4 F or 38 C)?: No Have you tested positive for COVID-19: No Exposed to someone with COVID-19 in past 14 days?: No Do you have a sore throat?: No Do you have a cough?: No Do you have any weakness?: No Do you have any diarrhea?: No Are you experiencing any unusual bleeding?: No Do you have any muscle aches/pain?: No Do you have any abdominal pain?: No Are you experiencing loss of taste or smell?: No Other Medical History Have you received the Flu Vaccine for this season: No Have you received the Pneumonia Vaccine: No ROS Obtained: Yes Systems reviewed as appropriate & no additional complaints except as documented Per HPI Physical Exam General General appearance: alert and in no apparent distress Comment: Chronically ill-appearing Head Head exam: atraumatic and normocephalic Eye Eye exam: Present PERRL and EOMI ENT ENT exam: Present mucous membranes moist Neck Neck exam: Present normal inspection and full ROM Chest Chest inspection: Present symmetric chest wall rise and other (Sternotomy scar) Respiratory Respiratory exam: Present normal lung sounds bilaterally; Absent respiratory distress, wheezes or stridor Cardiovascular Cardiovascular exam: Present regular rate, normal rhythm and other (Mechanical valve click) Abdominal Exam Abdominal exam: Present soft; Absent distention or tenderness Extremities Exam Extremities exam: Present full ROM and edema (+3 peripheral edema bilaterally); Absent joint swelling or calf tenderness Neurological Exam Neurological exam: Present alert, oriented X3, CN II-XII intact and normal gait; Absent motor sensory deficit (Patient reports tingling sensation in his left hand but has normal sensation throughout, 2 point discrimination intact, receptionist airline lounge intact, normal finger-nose and [id number], NIH 0) Psychiatric Psychiatric exam: Present normal affect and normal mood Skin Skin exam: Present warm and dry Medical Decision Making Medical Records Medical records reviewed: Yes I reviewed the patient's medical records. Screening: Per USPSTF and CDC recommendations, given the prevalence of disease in our region, it is our hospital?s policy to screen for HIV and viral Hepatitis for all patients aged 18 and over and those with ongoing risk factors. MR Comment: Patient has limited records within our system. It appears his most recent encounter was in 2022 in our ER where he presented with difficulty urinating. He ended up being transferred to outside facility for further management due to inability to cath the patient. Patient does have a PFT from December 2023 [facility] Inquiry Pt receiving controlled substance: No Vital Signs: 01/02/25 02:00 01/02/25 02:03 01/02/25 02:09 Temperature 97.8 F Temperature Source Oral Pulse Rate 80 Pulse Rate [Radial] 77 Respiratory Rate 22 Blood Pressure 168/109 H Blood Pressure [Right Arm] 168/109 H Blood Pressure Mean [Right Arm] 128 Blood Pressure Position [Right Arm] Sitting 02 Sat by Pulse Oximetry 95 91 L Oxygen Delivery Method Room Air Room Air Room Air 01/02/25 02:36 Temperature Temperature Source Pulse Rate 69 Pulse Rate [Radial] Respiratory Rate Blood Pressure 122/72 Blood Pressure [Right Arm] Blood Pressure Mean [Right Arm] Blood Pressure Position [Right Arm] 02 Sat by Pulse Oximetry 96 Oxygen Delivery Method Room Air Lab Data Lab Results 01/02/25 02:12: WBC 7.5, RBC 4.41 L, Hgb 12.2 L, Hct 38.8 L, MCV 88.0, MCH 27.7, MCHC 31.4 L, RDW 15.2, Plt Count 231, MPV 9.7, Neut % (Auto) 77.5, Lymph % (Auto) 12.9, [place] % (Auto) 6.6, Eos % (Auto) 1.6, Baso % (Auto) 1.3, Neut # (Auto) 5.8, Lymph # (Auto) 1.0, [place] # (Auto) 0.5, Eos # (Auto) 0.1, Baso # (Auto) 0.1, PT 30.8 H, INR 3.07 H, D-Dimer 0.39, Sodium 136, Potassium 4.5, Chloride 105, Carbon Dioxide 30, Anion Gap 5.5, BUN 20, Creatinine 1.30 H, Estimated Creat Clear 64, Estimated GFR 54 L, Est GFR ( Amer) 66, Glucose 76, Calcium 9.4, Total Bilirubin 0.9, AST 32, ALT 21, Alkaline Phosphatase 116, Troponin I < 0.01, NT-Pro-B Natriuret Pep 5420 H, Total Protein 6.6, Albumin 3.4 L, Globulin 3.2, Albumin/Globulin Ratio 1.1 01/02/25 02:30: VBG pH 7.33, VBG pCO2 47.8, VBG pO2 49.0 H, VBG HCO3 24.6, VBG Total CO2 26.1, VBG O2 Saturation 80.3 H, VBG Base Excess -1.3, VBG Lactic Acid 0.9 01/02/25 02:12 01/02/25 02:12 Orders (Tests/Meds): ED MEDICATIONS Discontinued Medications Generic Name Dose Route Start Last Admin Trade Name Freq PRN Reason Stop Dose Admin Furosemide 40 mg 01/02/25 03:03 01/02/25 03:11 Furosemide 40mg/4ml Vial IV 01/02/25 03:04 40 mg ONCE ONE Administration Iopamidol 80 ml 01/02/25 02:59 01/02/25 03:00 Iopamidol-370 (76%);100ml Bottle IV 01/02/25 03:00 80 ml ONCE ONE Administration Sodium Chloride 50 ml 01/02/25 02:59 01/02/25 03:00 0.9 % Sodium Chloride 50 Ml Vial IV 01/02/25 03:00 50 ml ONCE ONE Administration Sodium Chloride 10 ml 01/02/25 02:59 01/02/25 03:00 Sodium Chloride 0.9% 10ml Syr (Rad Only) IV 01/02/25 03:00 10 ml ONCE ONE Administration ORDERS Category Date Time Status CT angio head Stat Cat Scan 01/02/25 02:[address] angio neck Stat Cat Scan 01/02/25 02:[address] head/brain wo con Stat Cat Scan 01/02/25 02:18 Completed XR chest 2V Stat Exams 01/02/25 02:18 Completed Complete Blood Count Auto Diff Stat Lab 01/02/25 02:12 Completed Comprehensive Metabolic Panel Stat Lab 01/02/25 02:12 Completed D-Dimer Stat Lab 01/02/25 02:12 Completed Mini Respiratory Panel Stat Lab 01/02/25 02:35 Received NT Pro Brain Natriuretic Pep. Stat Lab 01/02/25 02:12 Completed Prothrombin Time INR Stat Lab 01/02/25 02:12 Completed Troponin I Q3H Lab 01/02/25 05:30 Ordered Troponin I Q3H Lab 01/02/25 08:30 Ordered Troponin I Stat Lab 01/02/25 02:12 Completed Venous Blood Gas Stat RT 01/02/25 02:30 Ordered Medical Decision Narrative: In summary, this 69-year-old male with comorbidities described in the HPI which are likely not at goal therapy and increases overall morbidity presents to the emergency department today with not feeling well, swelling in the legs for multiple weeks, tingling sensation in his left hand. On initial evaluation patient is hemodynamically stable, afebrile, lungs clear bilaterally, patient has 3+ pitting edema in the bilateral lower extremities, neuroexam benign NIH 0, GCS 15, no motor or sensory deficits appreciated clinically. Differential diagnosis includes but is not limited to ACS, PE, pulmonary edema, fluid overload, kidney dysfunction, electrolyte abnormality, intracranial bleed, mass, midline shift, ischemic stroke, metabolic derangement, among others. Based on these concerns, I ordered serum labs, cardiac workup, CT imaging of the head and neck including angiography. ECG personally interpreted demonstrates sinus rhythm, rate 68, normal axis, normal HI and QTc, patient does have occasional ectopic premature complexes, old inferior ischemic changes appreciated, similar to prior ECG which I reviewed. Labs personally reviewed demonstrate no leukocytosis, mild anemia with hemoglobin 12.2 is nonspecific and nonactionable at this time, platelets normal at 231, PT and INR elevated consistent with warfarin use and mechanical valve. Appropriate therapeutic range for mechanical valve. D-dimer normal at 0.39, nonactionable. No CTA PE indicated. VBG with pH 7.33, no hypercarbia, normal bicarb, normal lactic. CMP demonstrates improved kidney function compared to prior, no actionable electrolyte abnormalities, troponin undetectably low less than 0.01. Given patient's duration of symptoms I do not believe serial troponins are indicated. If his symptoms were due to an acute cardiac event I would anticipate the troponin already being elevated. BNP is elevated at 5420. This is consistent with patient's clinical findings. IV furosemide administered. Chest x-ray personally interpreted does not demonstrate acute intrathoracic abnormality, see radiology read for final interpretation. On reassessment patient continues to be resting comfortably, he is urinating appropriately for having received Lasix. He was ambulated around the emergency department and his oxygen saturation maintained above 93% on room air. I believe he is appropriate for discharge at this time. I prescribed a short course of furosemide to continue gently diuresing the patient. He reports he has a good relationship with his primary care doctor and I instructed him to call his primary care doctor immediately for close outpatient follow-up to recheck labs and discuss long-term management of his peripheral edema and fluid overload. I also sent a note to Dr. Chavarria through the EHR to this effect. Patient was given instructions on medication use, continued symptomatic monitoring and management, close follow-up instructions, and strict return precautions for the ER. He indicated understanding and the patient was discharged in stable condition. Critical Care Critical Care Time Critical Care Time: No
[2025-01-02] MEDS: 0.9 % SODIUM CHLORIDE 50 ML VIAL IV (03:00)
[2025-01-02] MEDS: SODIUM CHLORIDE 0.9% 10ML SYR (RAD ONLY) 10 ML IV (03:00)
[2025-01-02] MEDS: IOPAMIDOL-370 (76%);100ML BOTTLE 80 ML IV (03:00)
[2025-01-02 03:08] LABS: Troponin I < 0.01 ng/ml (0.00-0.034)
[2025-01-02] MEDS: FUROSEMIDE 40MG/4ML VIAL 40 MG IV (03:11)
[2025-01-02 04:00] VITALS: BP 153/92; PULSE 73; RESP 22; TEMP 36.6; O2SAT 94
== END 2025-01-02 04:22 | disposition home or self-care (01) ==
PROVIDERS: Emergency Provider Emergency Medicine; PCP Internal Medicine Adolescent Medicine
DX: R60.0 Localized edema (principal); R79.89 Other specified abnormal findings of blood chemistry; R20.2 Paresthesia of skin
CPT/HCPCS: 70450; 70496; 70498; 71046; 80053; 82803; 83880; 84484; 85025; 85378; 85610; 87631; 93005; 96374; 99285; J1940; Q9967

== ENCOUNTER 2025-05-14 01:30 | Emergency (ER) | payer MEDICARE, OTHER, SELFPAY ==
--- OUTSIDE RECORDS SUMMARY | 2025-02-26 06:15 | XMS_ITS ---
Author Organization [facility] PE D SALVATORE Address [address] [place] [address] Care Team Providers Care Building Inspection Engineer Name Role Phone Humphrey Chavarria Primary Care Provider REASON FOR VISIT fu Encounters Encounter Location Date Provider Diagnosis [facility] [address] [address] 02/26/2025 Humphrey Chavarria Plan Of Treatment Next Appt Details Provider Name:Humphrey Chavarria, 05/30/2025 11:30:00 AM, [address], [phone], Progress Notes * Nino REGALADO WDOB:1955 (69 yo M)Acc No.[id number]:02/26/2025 Progress Notes Patient: Nino PICKENS Provider: Debi Chavarria MD :1955 A ge:69 Y S ex:Male Date:02/26/2025 Address:[address] [place] [address], [id number] Subjective: * Chief Complaints: * 1 . Fu. * Medical History: Objective: * Vitals: Assessment: Plan: * Treatment: * * Electronic signature of Tom Chavarria MD FAAP on 05/14/2025 at 01:41 AM EDT Sign off status: Pending * Provider: Debi Chavarria MD Date: 0 02/26/2025 Generated for Sharon gerard/Padmini/eTransmitting on: 0 05/14/2025 01:41 AM EDT
--- OUTSIDE RECORDS SUMMARY | 2025-04-02 07:45 | XMS_ITS ---
Author Organization [facility] SALV[place]ORE Address [address] [facility] [address] [place], [place] [address] Care Team Providers Care Interventional Tech Name Role Phone Humphrey Chavarria Primary Care Provider Allergies Allergen (clinical drug ingredient) Drug/Non Drug Allergy documented on EMR Reaction Allergy Type Onset Date Status aspirin Aspirin upset stomach Drug Allergy Act skip Results Component Value Reference Range Notes BASIC METABOLIC PANEL (73881 ) Reviewed date:04/03/2025 02:10:09 PM Interpretation: Performing Lab:[facility], [facility] [id number], [id number] Bert Reagan Notes/Report: NON-FASTING; NON-FASTING GLUCOSE 57 65-99 mg/dL Fasting reference interval UREA NITROGEN (BUN) 17 7-25 mg/dL CREATININE 1.13 0.70-1.28 mg/dL EGFR 69 > OR = 60 mL/min/1.73m2 BUN/CREATININE RATIO SEE NOTE: 6-22 (calc) Not Reported: BUN and Creatinine are within reference range. SODIUM 141 135-146 mmol/L POTASSIUM 4.0 3.5-5.3 mmol/L CHLORIDE 107 98-110 mmol/L CARBON DIOXIDE 31 20-32 mmol/L CALCIUM 8.4 8.6-10.3 mg/dL PROTHROMBIN TIME-INR (8847) Reviewed date:04/03/2025 02:10:10 PM Interpretation: Performing Lab:[facility], [employer] [facility] [id number], [place] [id number] Bert Reagan Notes/Report: NON-FASTING; NON-FASTING INR 2.7 Reference Range 0.9-1.1 Moderate-intensity Warfarin Therapy 2.0-3.0 Higher-intensity Warfarin Therapy 3.0-4.0 PT 27.1 9.0-11.5 sec For additional information, please refer to http://Need.Better Finance/faq/IKZ577 (This link is being provided for informational/ educational purposes only.) B TYPE NATRIURETIC PEPTIDE ( BNP) (12597) Reviewed date:04/03/2025 05:05:41 PM Interpretation: Performing Lab:[facility], [facility] [id number], [place] Bert Reagan Notes/Report: NON-FASTING B TYPE NATRIURETIC PEPTIDE (BNP) 1218 <100 pg/mL BNP levels increase with age in the general population with the highest values seen in individuals greater than 75 years of age. Reference: J. Am. Dahlia. Cardiol. 2002; 40:976-982. REASON FOR VISIT f/u Medications Medication SIG (Take, Route, Frequency, Duration) Notes Start Date End Date Status Entresto 97-103 MG 1 tablet Orally Twic e a day; Duration: 90 days 01/29/2025 Active Gabapentin 300 mg TAKE 1 CAPSULE 3 TIMES EACH DAY; Duration: 30 03/21/2025 Active Warfarin Sodium 7.5 MG 1 tab(s) orally once a day but not on Sundays Active Tamsulosin HCl 0.4 MG 1 cap(s) orally once a day; Duration: 90 days Active Omeprazole 20 MG 1 cap(s) orally once a day; Duration: 90 days Active Allopurinol 300 MG 1 tab(s) orally once a day; Duration: 90 days Active metFORMIN HCl 1000 MG 1 tab(s) orally once a day; Duration: 90 days Active Loratadine 10 MG 1 tab(s) orally once a day; Duration: 90 days Active Basaglar KwikPen 100 UNIT/ML INJECT 25 UNITS SUBCUTANEOUSLY ONCE A DAY; Duration: 60 Active Carvedilol 25 MG 2 tab(s) orally 2 times a day; Duration: 90 days Active Clopidogrel Bisulfate 75 MG 1 tab(s) orally once a day; Duration: 90 days 07/12/2024 Active Lipitor 80 MG 1 tab(s) orally once a day (at bedtime); Duration: 90 days Active Breztri Aerosphere 160 MCG-4.8 MCG-9 MCG/INH 2 PUFF(S) INHALED 2 TIMES A DAY; Duration: 30 DAYS *Please review and pick correct strength-formulati on from Spacenet options. If intended option is not shown, discontinue and re-order from Quick Search* 01/25/2024 Active Verapamil HCl ER 180 MG 1 cap(s) orally once a day; Duration: 90 days 11/03/2021 Active Nitrostat 0.4 MG DISSOLVE ONE TABLET UNDER TONGUE EVERY 5 MINUTES FOR 3 DOSES NEEDED FOR sublingually every 5 minutes; Duration: 90 days Active Vitamin D3 *Please review a nd pick correct strength-formulati on from Spacenet options. If intended option is not shown, discontinue and re-order from Quick Search* Active INSULIN SYRINGE 1CC DIRECTED; Duration: 30 *Please review for potential replacement for e-prescription and drug interaction check* 01/15/2014 Active B-12 2500 MCG 1 tab(s) sublinguall y once a day; Duration: 30 day(s) Active Vitamin D (Ergocalciferol) 1.25 MG (55440 UT) TAKE 1 CAPSULE BY MOUTH ONCE A WEEK 28; Duration: 28 Active Vital Signs Temperature 97.4 degrees Fahrenheit 04/02/20 25 Blood pressure systolic 124 mm Hg 04/02/20 25 Blood pressure diastolic 90 mm Hg 025 Heart Rate 64 /min 04/02/2025 Height 5 ft 9.5 in in 04/02/2025 Weight 189 lbs 04/02/2025 BMI 27.51 kg/m2 04/02/2025 Encounters Encounter Location Date Provider Diagnosis [address] [address] 04/02/2025 Humphrey Chavarria Chronic systolic heart failure I50.22 and Aortic valve replaced Z95.2 Assessments Encounter Date Diagnosis (ICD Code) Assessment Notes Treatment Notes Treatment Clinical Notes Section Notes 04/02/2025 Chronic systolic heart failure (ICD-10 - I50.22) On appropriate highest dose of Entresto. No change in plans, I will see him in 4 weeks. Will check electrolytes. Consider ramping up diuretic therapy if he still has edema. 04/02/2025 Aortic valve replaced (ICD-10 - Z95.2) Check INR. I'll review personally Plan Of Treatment Treatment Notes Assessment Notes Chronic systolic heart failure On approp riate highest dose of Entresto. No change in plans, I will see him in 4 weeks. Will check electrolytes. Consider ramping up diuretic therapy if he still has edema. Aortic valve replaced Check INR. I'll re view personally Next Appt Details Follow Up: 4 Weeks, Reason: Provider Name:Humphrey Chavarria, 05/30/2025 11:30:00 AM, [address] [place] [address], [phone], Progress Notes * Nino REGALADO WDOB:1955 (69 yo M)Acc No.[id number]:04/02/2025 Progress Notes Patient: Nino PICKENS Provider: Debi Chavarria MD :1955 A ge:69 Y S ex:Male Date:04/02/2025 Address:[address] [place] [address], [id number] Subjective: * Chief Complaints: * 1 . F/u. * HPI: g en: Nino presents for follow-up for a couple of issues. Last visit we were unsure what dose of Entresto he was taking. He is now up to the correct dose of 97 mg. He takes this twice daily. Feels good, blood pressures better. Still has trace ankle edema. No chest pain, no bleeding. No GI issues. INR was slightly high at last visit, 4.2, we adjusted his warfarin and needs rechecked. * Medical History: Alex Ordaz treated medically in 2000 with preserved LV function, DM - Type II, Hyperlipidemia, Hypertension, Tobacco Abuse, 4 vessel CABG 07/2008, Aortic and mitral valve replacement - 07/2008, CVA, Normal colonoscopy 2009, positive cologuard 04/12 with c-scope with multiple polyps and sigmoid tortuosity. Needs repeat 04/13. * Surgical History: c holecystectomy 2014, CABG, valve replacement 2008, cardiac stents x 2 2015, colonoscopy 2019, Severe phimosis with urinary retention and dorsal slit procedure at [facility] 08/15. * Hospitalization/Major Diagno stic Procedure: g allbladder surgery 07/21/15, [facility] bleeding from surgery 06/3015, [place] x4 days 07/2023. * Family History: F ather: . M other: . P aternal Grand Father: . P aternal Grand Mother: . M aternal Grand Father: . M aternal Grand Mother: . Siblings: . Eulogio bailey: alive, 1 daughter epilepsy, 2 daughters ca. 6 brother(s) , 2 sister(s) . 4 daughter(s) . . one sister in January from Lung Cancer. * Social History: S moking A re you a:: former smoker , How long has it been since you last smoked?: > 10 years. R ecreational drug use: no. Exercise: no. Caffeine: yes, 1-2 cups coffee daily. Living Will: No. Alcohol: no. Travel outside [place]: no. Occupation: disabled. * Medications: T aking Vitamin D3 , Notes to Pharmacist: *Please review and pick correct strength-formulation from Synthoxan options. If intended option is not shown, discontinue and re-order from Quick Search*, Taking B-12 2500 MCG Tablet 1 tab(s) sublingually once a day , Taking INSULIN SYRINGE 1CC DIRECTED , Notes to Pharmacist: *Please review for potential replacement for e-prescription and drug interaction check*, Taking Vitamin D (Ergocalciferol) 1.25 MG (54756 UT) Capsule TAKE 1 CAPSULE BY MOUTH [...] *Please review and pick correct strength-formulation from Synthoxan options. If intended option is not shown, discontinue and re-order from Quick Search*, Taking Lipitor 80 MG Tablet 1 tab(s) orally once a day (at bedtime) , Taking Clopidogrel Bisulfate 75 MG Tablet 1 tab(s) orally once a day , Taking metFORMIN HCl 1000 MG Tablet 1 tab(s) orally once a day , Taking Allopurinol 300 MG Tablet 1 tab(s) orally once a day , Taking Carvedilol 25 MG Tablet 2 tab(s) orally 2 times a day , Taking Basaglar KwikPen 100 UNIT/ML Solution Pen-injector INJECT 25 UNITS SUBCUTANEOUSLY ONCE A DAY , Taking Loratadine 10 MG Tablet 1 tab(s) orally once a day , Taking Entresto 97- 103 MG Tablet 1 tablet Orally Twice a day , Taking Omeprazole 20 MG Capsule Delayed Release 1 cap(s) orally once a day , Taking Tamsulosin HCl 0.4 MG Capsule 1 cap(s) orally once a day , Taking Warfarin Sodium 7.5 MG Tablet 1 tab(s) orally once a day but not on Sundays , Taking Gabapentin 300 mg Capsule TAKE 1 CAPSULE 3 TIMES EACH DAY , Medication List reviewed and reconciled with the patient * Allergies: A spirin: upset stomach. Objective: * Vitals: N urse: dw, Pain: 0, Temp: 97.4, RR: 20, HR: 64, BP: 124/90, Ht: 5 ft 9.5 in, Wt: 189, BMI:27.51. * Examination: G eneral Examination: General P leasant and Cooperative, NAD on RA,. Heart: h eart rate normal, crisp metallic valve sound, midsystolic murmur. Lungs: c lear to auscultation, no crackles or rhonchi, good air exchange bilaterally. Neurologic Exam: n o focal signs,, Alert and oriented x 3.? Extremities: E farhan improved in lower legs bilaterally, skin dry. Assessment: * Assessment: 1. C hronic systolic heart failure - I50.22 (Primary) 2 . A ortic valve replaced - Z95.2 Plan: * Treatment: Value Reference Range G LUCOSE 57 L 65-99 - mg/dL * U SHENG NITROGEN (BUN) 17 7-25 - mg/dL * C REATININE 1.13 0.70-1.28 - mg/dL * B UN/CREATININE RATIO SEE NOTE: 04-14 - (calc) * S ODIUM 141 135-146 - mmol/L * P OTASSIUM 4.0 3.5-5.3 - mmol/L * C HLORIDE 107 98-110 - mmol/L * C ARBON DIOXIDE 31 20-32 - mmol/L * C ALCIUM 8.4 L 8.6-10.3 - mg/dL * E GFR 69 > OR = 60 - mL/min/1 .73m2 * [facility] 2[facility]10:00 PM EDT > pt notifiedThis lab was reviewed by Denis Gill on 04/03/2025 at 14:10 PM EDT ?LAB: PROTHROMBIN TIME-INR (8847)* Value Reference Range P T 27.1 H 9.0-11.5 - sec * I NR 2.7 H - * [facility]25 0 2:10:00 PM EDT > pt notifiedThis lab was reviewed by Denis Gill on 04/03/2025 at 14:10 PM EDT ?LAB: B TYPE NATRIURETIC PEPTIDE (BNP) (12456)* Value Reference Range B TYPE NATRIURETIC 1218 H <100 - pg/mL * This lab was reviewed by Juaquin Chavarria on 04/03/2025 at 17:05 PM EDT Notes: On appropriate highest dose of Entresto. No change in plans, I will see him in 4 weeks. Willcheck electrolytes. Consider ramping up diuretic therapy if he still has edema.??2.?Aortic valve replaced?LAB: PROTHROMBIN TIME-INR (8847)* Value Reference Range P T 27.1 H 9.0-11.5 - sec * I NR 2.7 H - * [facility]25 0 2:10:00 PM EDT > pt notifiedThis lab was reviewed by Denis Gill on 04/03/2025 at 14:10 PM EDT Notes: Check INR. I'll review personally?? * Follow Up: 4 Weeks * * Sign off status: Completed true * Provider: Debi Chavarria MD Date: 0 04/02/2025 Generated for Sharon ng/Padmini/eTransmitting on: 0 05/14/2025 01:41 AM EDT History and Physical Notes * HPI (History of Present Illness) Category Sub-Category Detail Notes Category Not es gen Nino presents for follow-up for a couple of issues. Last visit we were unsure what dose of Entresto he was taking. He is now up to the correct dose of 97 mg. He takes this twice daily. Feels good, blood pressures better. Still has trace ankle edema. No chest pain, no bleeding. No GI issues. INR was slightly high at last visit, 4.2, we adjusted his warfarin and needs rechecked Examination Category Sub-Category Detail Notes Category Not es General Examination Heart: heart rate n ormal, crisp metallic valve sound, midsystolic murmur Lungs: clear to auscultatio n, no crackles or rhonchi, good air exchange bilaterally Extremities: Edema improved in lo wer legs bilaterally, skin dry Neurologic Exam: no focal signs,, Taylor rt and oriented x 3 General Pleasant and Coopera tive, NAD on RA,
[2025-05-14] VITALS (13 sets, daily range): BP systolic 121–174; BP diastolic 71–98; PULSE 65–87; RESP 11–24; TEMP 36.6; O2SAT 91–95; BMI 26.4
--- NOTE | 2025-05-14 01:38 | [facility].EDGENADL ---
Discharge Plan Disposition Patient Disposition: Home, Self-Care Prescriptions Prescriptions: No Action allopurinol 300 mg tablet 300 mg PO DAILY loratadine [Claritin] 10 mg tablet 10 mg PO DAILY fluticasone propionate [Flonase Allergy Relief] 50 mcg/actuation spray,suspension 50 mcg INTRANASAL DAILYP PRN (Reason: ALLERGIES) gabapentin 300 mg capsule 300 mg PO TID insulin aspart U-100 [Novolog FlexPen U-100 Insulin] 100 unit/mL insulin pen 10 unit SUB-Q QAM docusate sodium 250 mg capsule 250 mg PO DAILYP PRN (Reason: Constipation) tamsulosin [Flomax] 0.4 mg capsule,extended release 24hr 0.4 mg PO HS potassium chloride [Klor-Con 10] 10 mEq tablet extended release 10 meq PO BID Humulin 70/30 U-100 Insulin 100 unit/mL (70-30) suspension 20 unit SQ QAM insulin degludec [Tresiba FlexTouch U-200] 200 unit/mL (3 mL) insulin pen 25 unit SUB-Q HS metformin 1,000 mg tablet 1,000 mg PO BID carvedilol 25 mg tablet 50 mg PO BID Qty: 360 3RF warfarin 7.5 mg Tablet 3.75 mg PO SUTUTHSA warfarin 7.5 mg Tablet 7.5 mg PO MOWEFR atorvastatin 80 mg tablet 80 mg PO HS hydrochlorothiazide 50 mg tablet 50 mg PO DAILY Rx Instructions: TAKE 1 TABLET BY MOUTH DAILY isosorbide mononitrate 30 mg tablet extended release 24 hr 30 mg PO DAILY Rx Instructions: TAKE 1 TABLET BY MOUTH DAILY clopidogrel 75 mg tablet 75 mg PO DAILY Rx Instructions: TAKE 1 TABLET BY MOUTH DAILY FOR BLOOD THINNER omeprazole 40 mg capsule,delayed release(DR/EC) 20 mg PO DAILY losartan 100 mg tablet 100 mg PO DAILY Rx Instructions: TAKE 1 TABLET BY MOUTH DAILY FOR BLOOD PRESSURE furosemide 20 mg tablet 20 mg PO DAILY Qty: 2 0RF Referrals Follow up/Referrals: Humphrey Chavarria MD [Primary Care Provider, Internal Medicine] - See instructions Activity Restrictions/Add. Instructions Additional Instructions/Restrictions: Please follow-up with your primary care provider. Please return to the emergency department if you develop any new or worsening symptoms or become concerned for your health. Clinical Impressions Clinical Impression: Chest pain Print Language Print Language: Macedonian Discharge ED Provider: Aleksandar Patel General Adult HPI General Chief complaint: Chest Pain Stated complaint: chest tightness, feels weird Time Seen by Provider: 05/14/25 01:36 History of Present Illness HPI narrative: 69-year-old male with history of hypertension, hyperlipidemia, diabetes, anemia, aortic and mitral valve replacement presents for chest pressure. He reports it started earlier today and has been going on for most of the day. Denies any significant shortness of breath. Denied history of blood clot in the lungs. Related Data Home Medications ?Medication ?Instructions ?Recorded ?Confirmed allopurinol 300 mg tablet 300 mg PO DAILY gout 11/28/17 07/26/23 docusate sodium 250 mg capsule 250 mg PO DAILYP PRN Constipation 11/28/17 07/26/23 fluticasone propionate 50 50 mcg intranasal DAILYP PRN 11/28/17 07/26/23 mcg/actuation nasal ALLERGIES spray,suspension (Flonase Allergy Relief) gabapentin 300 mg capsule 300 mg PO TID NEUROPATHY 11/28/17 07/26/23 insulin aspart U-100 100 unit/mL 10 unit SUB-Q QAM Diabetes 11/28/17 07/26/23 (3 mL) subcutaneous pen (Novolog FlexPen U-100 Insulin aspart) loratadine 10 mg tablet (Claritin) 10 mg PO DAILY Allergies 11/28/17 07/26/23 tamsulosin 0.4 mg capsule (Flomax) 0.4 mg PO HS bladder 11/28/17 07/26/23 insulin degludec 200 unit/mL (3 25 unit SUB-Q HS Diabetes 02/07/18 07/26/23 mL) subcutaneous pen (Tresiba FlexTouch U-200 insulin) potassium chloride 10 mEq 10 meq PO BID Supplement 01/03/19 07/26/23 tablet,extended release (Klor-Con) insulin human U-100 NPH-regulr 20 unit SQ QAM Diabetes 05/13/20 07/26/23 70-30 mix 100 unit/mL subcutaneous susp (Humulin 70/30 U-100 Insulin) metformin 1,000 mg tablet 1,000 mg PO BID Diabetes 02/23/21 07/26/23 atorvastatin 80 mg tablet 80 mg PO HS Cholesterol 07/26/23 07/26/23 clopidogrel 75 mg tablet 75 mg PO DAILY Blood Thinner 07/26/23 07/26/23 hydrochlorothiazide 50 mg tablet 50 mg PO DAILY Blood pressure/fluid 10/03/23 10/03/23 isosorbide mononitrate 30 mg 30 mg PO DAILY Blood pressure 07/26/23 07/26/23 tablet,extended release 24 hr losartan 100 mg tablet 100 mg PO DAILY Blood pressure 07/26/23 07/26/23 omeprazole 40 mg capsule,delayed 20 mg PO DAILY acid reflux 07/26/23 07/26/23 release warfarin 7.5 mg tablet 3.75 mg PO SUTUTHSA Blood Thinner 07/26/23 07/26/23 warfarin 7.5 mg tablet 7.5 mg PO MOWEFR Blood Thinner 07/26/23 07/26/23 Previous Rx's ?Medication ?Instructions ?Recorded carvedilol 25 mg tablet 50 mg (2 x 25 mg) PO BID Heartburn 02/23/21 #360 tabs furosemide 20 mg tablet 20 mg PO DAILY #2 tabs 01/02/25 Allergies Allergy/AdvReac Type Severity Reaction Status Date / Time aspirin (ASPIRIN) Allergy Unknown Abdominal Verified 05/14/25 01:54 Pain [facility] Disclaimer: The information contained in this section may have been updated after the patient was seen, as this information can be updated by other users. Medical History (Updated 05/14/25 @ 05:16 by Aleksandar Patel MD) Abnormal EKG Dyspnea Surgical History (Updated 07/04/19 @ 10:28 by Kati Aguilar RN) H/O mitral valve replacement with mechanical valve Hx of aortic valve replacement, mechanical Social History Smoking Status: Former smoker tobacco type: cigarettes alcohol intake: never substance use type: denies use current occupational status: other Travel in the last 8 weeks?: Inside the [place] caffeine: Yes Have you lived/traveled outside [place] in past 30 days?: No Contact w/someone who lives/traveled outside [place] past 30 days?: No Exposure to someone with infectious disease in past 14 days?: No Do you have a fever (greater than 100.4 F or 38 C)?: No Have you tested positive for COVID-19?: No Exposed to someone with COVID-19 in past 14 days?: No Do you have a sore throat?: No Do you have a cough?: No Do you have any weakness?: No Do you have any diarrhea?: No Are you experiencing any unusual bleeding?: No Do you have any muscle aches/pain?: No Do you have any abdominal pain?: No Are you experiencing loss of taste or smell?: No Other Medical History Have you received the Flu Vaccine for this season: No Have you received the Pneumonia Vaccine: No ROS Obtained: Yes All systems reviewed & no additional complaints except as documented Physical Exam General General appearance: alert and in no apparent distress Head Head exam: atraumatic and normocephalic Eye Eye exam: Present normal appearance, PERRL and EOMI ENT ENT exam: Present normal oropharynx and normal external ear exam Neck Neck exam: Present normal inspection and full ROM Chest Chest inspection: Present normal inspection and symmetric chest wall rise; Absent tenderness Respiratory Respiratory exam: Present normal lung sounds bilaterally; Absent respiratory distress Cardiovascular Cardiovascular exam: Present regular rate and normal rhythm Abdominal Exam Abdominal exam: Present soft; Absent distention, tenderness or guarding Extremities Exam Extremities exam: Present normal inspection; Absent edema or joint swelling Back Exam Back exam: Present normal inspection; Absent tenderness Neurological Exam Neurological exam: Present alert and oriented X3; Absent motor sensory deficit Psychiatric Psychiatric exam: Present normal affect and normal mood Skin Skin exam: Present warm, dry and normal color Lymphatic Lymphatic Findings: no adenopathy Medical Decision Making Medical Records Medical records reviewed: Yes I reviewed the patient's medical records. Screening: Per USPSTF and CDC recommendations, given the prevalence of disease in our region, it is our hospital?s policy to screen for HIV and viral Hepatitis for all patients aged 18 and over and those with ongoing risk factors. Juan Carlos Inquiry Pt receiving controlled substance: No Juan Carlos was queried for this patient: No Vital Signs: 05/14/25 01:45 05/14/25 01:51 05/14/25 01:54 Temperature 97.8 F Temperature Source Oral Pulse Rate 87 80 Pulse Rate [Left] 87 Respiratory Rate 14 11 L Blood Pressure Blood Pressure [Right Arm] 167/92 H Blood Pressure Mean Blood Pressure Mean [Right Arm] 117 Blood Pressure Source [Right Arm] Automatic Cuff Blood Pressure Position [Right Arm] Sitting 02 Sat by Pulse Oximetry 94 L 94 L Oxygen Delivery Method Room Air 05/14/25 02:06 05/14/25 02:11 05/14/25 02:11 Temperature Temperature Source Pulse Rate 71 Pulse Rate [Left] Respiratory Rate 23 Blood Pressure 174/98 H 159/91 H Blood Pressure [Right Arm] Blood Pressure Mean 133 113 Blood Pressure Mean [Right Arm] Blood Pressure Source [Right Arm] Blood Pressure Position [Right Arm] 02 Sat by Pulse Oximetry 94 L Oxygen Delivery Method 05/14/25 02:15 05/14/25 02:30 05/14/25 02:45 Temperature Temperature Source Pulse Rate 76 76 Pulse Rate [Left] Respiratory Rate 24 19 Blood Pressure 151/91 H Blood Pressure [Right Arm] Blood Pressure Mean 120 Blood Pressure Mean [Right Arm] Blood Pressure Source [Right Arm] Blood Pressure Position [Right Arm] 02 Sat by Pulse Oximetry 93 L 95 Oxygen Delivery Method 05/14/25 03:00 05/14/25 03:00 05/14/25 04:00 Temperature Temperature Source Pulse Rate 71 71 Pulse Rate [Left] Respiratory Rate 12 22 Blood Pressure 150/80 H 136/81 Blood Pressure [Right Arm] Blood Pressure Mean 112 114 Blood Pressure Mean [Right Arm] Blood Pressure Source [Right Arm] Blood Pressure Position [Right Arm] 02 Sat by Pulse Oximetry 93 L 92 L Oxygen Delivery Method 05/14/25 04:31 05/14/25 05:01 Temperature Temperature Source Pulse Rate 68 65 Pulse Rate [Left] Respiratory Rate 22 20 Blood Pressure 129/72 121/71 Blood Pressure [Right Arm] Blood Pressure Mean 91 87 Blood Pressure Mean [Right Arm] Blood Pressure Source [Right Arm] Blood Pressure Position [Right Arm] 02 Sat by Pulse Oximetry 91 L 92 L Oxygen Delivery Method Lab Data Lab results reviewed: Yes I reviewed the patient's lab results. Lab Results 05/14/25 01:47: WBC 6.1, RBC 4.20 L, Hgb 12.1 L, Hct 37.9 L, MCV 90.2, MCH 28.8, MCHC 31.9, RDW 15.0, Plt Count 199, MPV 9.7, Neut % (Auto) 70.3, Lymph % (Auto) 18.4, [place] % (Auto) 8.5, Eos % (Auto) 1.6, Baso % (Auto) 1.0, Neut # (Auto) 4.3, Lymph # (Auto) 1.1, [place] # (Auto) 0.5, Eos # (Auto) 0.1, Baso # (Auto) 0.1, D-Dimer 0.65 H, Sodium 136, Potassium 4.2, Chloride 104, Carbon Dioxide 30, Anion Gap 6.2, BUN 20, Creatinine 1.30 H, Estimated Creat Clear 64, Estimated GFR 54 L, Est GFR ( Amer) 66, Glucose 150 H, Calcium 8.5, Total Bilirubin 1.2, AST 32, ALT 13, Alkaline Phosphatase 106, Troponin I < 0.01, Total Protein 6.5, Albumin 3.2 L, Globulin 3.3 H, Albumin/Globulin Ratio 1.0 L, HCV Ab MUNIR w/Rflx PCR Qn Negative, HIV Ag/Ab Combo Qual Negative 05/14/25 04:40: Troponin I < 0.01 05/14/25 01:47 05/14/25 01:47 Orders (Tests/Meds): ED MEDICATIONS Generic Name Dose Route Start Last Admin Trade Name Freq PRN Reason Stop Dose Admin Nitroglycerin 0.4 mg 05/14/25 01:48 05/14/25 01:59 Nitroglycerin 0.4mg Sl Tablet SL 06/13/25 01:47 0.4 mg Q5MINP PRN Administration Chest Pain Discontinued Medications Generic Name Dose Route Start Last Admin Trade Name Freq PRN Reason Stop Dose Admin Acetaminophen 1,000 mg 05/14/25 01:48 05/14/25 01:58 Acetaminophen 500mg Tab PO 05/14/25 01:49 1,000 mg ONCE ONE Administration Aspirin 324 mg 05/14/25 01:48 05/14/25 01:55 Aspirin 81mg Chewable Tablet PO 05/14/25 01:49 Not Given ONCE ONE Belladonna Alkaloids 60 ml 05/14/25 01:48 05/14/25 01:59 Belladonna Alkaloids 60 Ml Ml PO 05/14/25 01:49 60 ml ONCE ONE Administration ORDERS Category Date Time Status CXR 2 view (NOT portable) [XR chest 2V] Stat Exams 05/14/25 01:48 Completed CBC w/Auto Diff [Complete Blood Count Auto Diff] Stat Lab 05/14/25 01:47 Completed CMP [Comprehensive Metabolic Panel] Stat Lab 05/14/25 01:47 Completed D-Dimer Stat Lab 05/14/25 01:47 Completed HIV Combo Stat Lab 05/14/25 01:47 Completed Hepatitis C Ab Qual. W/ RFX Stat Lab 05/14/25 01:47 Completed Troponin I Q3H Lab 07/22/25 01:47 Completed Troponin I Q3H Lab 05/14/25 04:40 Completed ECG Data Tracing #1: I reviewed this ECG and interpreted as documented below: Sinus rhythm, rate of 83, Q wave and T wave inversions in the inferior leads similar to prior EKGs., no ST segment changes. ECG initial impression date: 05/14/25 ECG initial impression time: 01:40 HEART Score History (anamnesis): Slightly suspicious ECG: Non-specific disturbance Age: >65 years Risk factors: 3 or more risk factors Troponin: </= normal limit HEART Score: 5 Medical Decision Narrative: 69-year-old male with history prior aortic and mitral valve replacement, hypertension, hyperlipidemia diabetes presents for chest pain to.. History was obtained via interactive discussion with patient. On arrival, patient is [afebrile, hemodynamically stable, satting appropriately, alert, oriented x4, GCS 15], moving all extremities spontaneously. Full physical exam performed and significant for no significant physical exam abnormalities. Differential includes but is not limited to ACS, PE, musculoskeletal chest pain, pneumonia, GERD, reflux, aortic disease. Patient was given aspirin, Tylenol, GI cocktail for symptomatic management and correction of underlying abnormalities. Workup initiated including CBC CMP D-dimer troponin EKG chest x-ray. On re-evaluation, patient reports symptomatic resolution. Laboratory workup independently interpreted by me and significant for negative initial troponin, negative D-dimer by years criteria. Imaging independently interpreted by me and significant for clear lungs bilaterally without focal opacity. See radiology read for full review of final results. EKG independently interpreted by me and significant for sinus rhythm without changes from baseline EKG. Patient was placed in ED observation status for continuous cardiac monitoring and serial troponins. On reassessment, patient's second troponin returned undetectably low. Given this as well as symptomatic resolution, I do not think patient requires admission for further cardiac workup. Given this, ED observation status was discontinued. Interactive discussion was had with patient regarding his presentation, workup and discharge. Return precautions given. He was encouraged to follow-up with his PCP/cardiology. Procedures Risk/Benefits of Procedure(s) Were Explained: Yes Critical Care Critical Care Time Critical Care Time: No
--- NOTE | 2025-05-14 01:40 | ECG_ITS ---
APPROVED REPORT Exam: Resting ECG HR:83 bpm ECG Measurements Heart Rate 83 AXES AZ 152 P -1 QRSd 121 QRS 52 QT 397 T -42 QTc 437 Conclusion SINUS RHYTHM POSSIBLE ANTERIOR MYOCARDIAL INFARCTION , OF INDETERMINATE AGE [30 ms Q WAVE IN V3/V4, OR R < 0.2 mV IN V4] INFERIOR MYOCARDIAL INFARCTION , OF INDETERMINATE AGE [40+ ms Q WAVE AND/OR ST/T ABNORMALITY IN II/aVF] ABNORMAL ECG UNCONFIRMED REPORT Electronically signed by : NORAH PETERSON, 05/15/2025 01:20:10
--- OUTSIDE RECORDS SUMMARY | 2025-05-14 01:41 | XMS_ITS | Patient Health Record ---
Author Organization [facility] Address [address] [facility] [address] [place] [address] Care Team Providers Care Producer Assistant Name Role Phone Humphrey Eli Primary Care Provider Migration, Provider Unavailable Unavailable Allergies Allergen (clinical drug ingredient) Drug/Non Drug Allergy documented on EMR Reaction Allergy Type Onset Date Status aspirin Aspirin upset stomach Drug Allergy Act skip Results Component Value Reference Range Notes Microalbumin (In-House) Reviewed date:11/20/2024 04:08:24 PM Interpretation: Performing Lab: Notes/Report: ALB 150mg CRE 50mg A:C >300mg Echocardiogram Reviewed date:08/13/2024 02:32:31 PM Interpretation: Performing Lab: Notes/Report: B TYPE NATRIURETIC PEPTIDE ( BNP) (12911) Reviewed date:07/26/2024 07:49:56 AM Interpretation: Performing Lab:ISATU [employer](INOR)e1355 [employer] Soul [employer] Grill ExpressLhsdQT[address] Bert Reagan Notes/Report: FASTING: YES FASTING:YES NON-FASTING; NON-FASTING; NON-FASTING; NON-FASTING; NON-FAST B TYPE NATRIURETIC PEPTIDE (BNP) 606 <100 pg/mL BNP levels increase with age in the general population with the highest values seen in individuals greater than 75 years of age. Reference: J. Am. Dahlia. Cardiol. 2002; 40:976-982. HEMOGLOBIN A1c (496) Reviewed date:07/26/2024 07:49:56 AM Interpretation: Performing Lab:ISATU [employer]13[address] [employer]Spar[employer]ent Rodney[employer] Soul [employer] Grill ExpressTnpiBK[address] Bert Reagan Notes/Report: NON-FASTING; NON-FASTING; NON-FASTING; NON-FASTING; NON-FAST FASTING:YES FASTING: YES HEMOGLOBIN A1c 6.6 <5.7 % of total Hgb For someone without known diabetes, a hemoglobin A1c value of 6.5% or greater indicates that they may have diabetes and this should be confirmed with a follow-up test. For someone with known diabetes, a value <7% indicates that their diabetes is well controlled and a value greater than or equal to 7% indicates suboptimal control. A1c targets should be individualized based on duration of diabetes, age, comorbid conditions, and other considerations. Currently, no consensus exists regarding use of hemoglobin A1c for diagnosis of diabetes for children. PROTHROMBIN TIME-INR (8847) Reviewed date:07/26/2024 07:49:56 AM Interpretation: Performing Lab:ISATU [employer](INOR)e1355 [employer], [facility] HospitalLpggTO[address] Bert Reagan Notes/Report: NON-FASTING; NON-FASTING; NON-FASTING; NON-FASTING; NON-FAST FASTING:YES FASTING: YES INR 2.1 Reference Range 0.9-1.1 Moderate-intensity Warfarin Therapy 2.0-3.0 Higher-intensity Warfarin Therapy 3.0-4.0 PT 21.3 9.0-11.5 sec For additional information, please refer to http://education.Queralt/faq/NVK679 (This link is being provided for informational/ educational purposes only.) CBC (INCLUDES DIFF/PLT) (639 9) Reviewed date:07/26/2024 07:49:56 AM Interpretation: Performing Lab:ISATU [employer](INOR)e1355 [employer] [facility], [facility] HospitalIhekKZ[address] Bert Reagan Notes/Report: NON-FASTING; NON-FASTING; NON-FASTING; NON-FASTING; NON-FAST FASTING:YES FASTING: YES WHITE BLOOD CELL COUNT 6.9 3.8-10.8 Thousand/ uL RED BLOOD CELL COUNT 4.35 4.20-5.80 Million/uL HEMOGLOBIN 12.3 13.2-17.1 g/dL HEMATOCRIT 38.6 38.5-50.0 % MCV 88.7 80.0-100.0 fL MCH 28.3 27.0-33.0 pg MCHC 31.9 32.0-36.0 g/dL For adults, a slight decrease in the calculated MCHC value (in the range of 30 to 32 g/dL) is most likely not clinically significant; however, it should be interpreted with caution in correlation with other red cell parameters and the patient's clinical condition. RDW 14.3 11.0-15.0 % PLATELET COUNT 192 140-400 Thousand/uL MPV 10.3 7.5-12.5 fL ABSOLUTE NEUTROPHILS 4837 4027-7293 cells/uL ABSOLUTE LYMPHOCYTES 9185 659-5432 cells/uL ABSOLUTE MONOCYTES 573 200-950 cells/uL ABSOLUTE EOSINOPHILS 90 15-500 cells/uL ABSOLUTE BASOPHILS 69 0-200 cells/uL NEUTROPHILS 70.1 LYMPHOCYTES 19.3 MONOCYTES 8.3 EOSINOPHILS 1.3 BASOPHILS 1.0 COMPREHENSIVE METABOLIC PANE L (83609) Reviewed date:07/26/2024 07:49:56 AM Interpretation: Performing Lab:ISATU, [employer]1355 [facility], [facility] HospitalXvhfFG[address] Bert Reagan Notes/Report: NON-FASTING; NON-FASTING; NON-FASTING; NON-FASTING; NON-FAST FASTING:YES FASTING: YES GLUCOSE 100 65-99 mg/dL Fasting reference interval For someone without known diabetes, a glucose value between 100 and 125 mg/dL is consistent with prediabetes and should be confirmed with a follow-up test. UREA NITROGEN (BUN) 21 7-25 mg/dL CREATININE 1.24 0.70-1.28 mg/dL EGFR 63 > OR = 60 mL/min/1.73m2 BUN/CREATININE RATIO SEE NOTE: 6-22 (calc) Not Reported: BUN and Creatinine are within reference range. SODIUM 142 135-146 mmol/L POTASSIUM 4.2 3.5-5.3 mmol/L CHLORIDE 107 98-110 mmol/L CARBON DIOXIDE 28 20-32 mmol/L CALCIUM 8.8 8.6-10.3 mg/dL PROTEIN, TOTAL 6.1 6.1-8.1 g/dL ALBUMIN 3.3 3.6-5.1 g/dL GLOBULIN 2.8 1.9-3.7 g/dL (calc) ALBUMIN/GLOBULIN RATIO 1.2 1.0-2.5 (calc) BILIRUBIN, TOTAL 1.4 0.2-1.2 mg/dL ALKALINE PHOSPHATASE 107 35-144 U/L AST 18 10-35 U/L ALT 11 9-46 U/L LIPID PANEL, STANDARD (7600) Reviewed date:07/26/2024 07:49:56 AM Interpretation: Performing Lab:ISATU [employer]-URX Vffo8471 Artisan PharmateAnn [facility], [facility] HospitalXbynZF[address] Bert Reagan Notes/Report: NON-FASTING; NON-FASTING; NON-FASTING; NON-FASTING; NON-FAST FASTING:YES FASTING: YES CHOLESTEROL, TOTAL 108 <200 mg/dL HDL CHOLESTEROL 35 > OR = 40 mg/dL TRIGLYCERIDES 122 <150 mg/dL LDL-CHOLESTEROL 53 (http://ConsiderC.Lambda Solutions/faq/DKX284) Reference range: <100 Desirable range <100 mg/dL for primary prevention; <70 mg/dL for patients with CHD or diabetic patients with > or = 2 CHD risk factors. LDL-C is now calculated using the Alan-Chirinos calculation, which is a validated novel method providing better accuracy than the Friedewald equation in the estimation of LDL-C. Alan GOULD et al. RADHA. 2013;310(19): 0497-9965 CHOL/HDLC RATIO 3.1 <5.0 (calc) NON HDL CHOLESTEROL 73 <130 mg/dL (calc) For patients with diabetes plus 1 major ASCVD risk factor, treating to a non-HDL-C goal of <100 mg/dL (LDL-C of <70 mg/dL) is considered a therapeutic option. LIPID PANEL, STANDARD (7600) Reviewed date:11/22/2024 12:29:42 PM Interpretation: Performing Lab:ISATU [employer]-[place] Sbhg8163 [employer] [facility], Bet[facility] HospitalNfrsWN[address] Bert Reagan Notes/Report: NON-FASTING; NON-FASTING; NON-FASTING; NON-FASTING; NON-FAST CHOLESTEROL, TOTAL 113 <200 mg/dL HDL CHOLESTEROL 36 > OR = 40 mg/dL TRIGLYCERIDES 110 <150 mg/dL LDL-CHOLESTEROL 57 Reference range: <100 Desirable range <100 mg/dL for primary prevention; <70 mg/dL for patients with CHD or diabetic patients with > or = 2 CHD risk factors. LDL-C is now calculated using the Alan-Chirinos calculation, which is a validated novel method providing better accuracy than the Friedewald equation in the estimation of LDL-C. Alan SS et al. RADHA. 2013;310(18): 7829-3470 (http://ConsiderC.Lambda Solutions/faq/GPR735) CHOL/HDLC RATIO 3.1 <5.0 (calc) NON HDL CHOLESTEROL 77 <130 mg/dL (calc) For patients with diabetes plus 1 major ASCVD risk factor, treating to a non-HDL-C goal of <100 mg/dL (LDL-C of <70 mg/dL) is considered a therapeutic option. COMPREHENSIVE METABOLIC PANE (57794) Reviewed date:11/22/2024 12:29:42 PM Interpretation: Performing Lab:ISATU, [employer](INOR)e1355 [employer], ParchmentTzidUD[address] Bert Reagan Notes/Report: NON-FASTING; NON-FASTING; NON-FASTING; NON-FASTING; NON-FAST GLUCOSE 98 65-99 mg/dL Fasting reference interval UREA NITROGEN (BUN) 25 7-25 mg/dL CREATININE 1.26 0.70-1.28 mg/dL EGFR 61 > OR = 60 mL/min/1.73m2 BUN/CREATININE RATIO SEE NOTE: 6-22 (calc) Not Reported: BUN and Creatinine are within reference range. SODIUM 141 135-146 mmol/L POTASSIUM 4.1 3.5-5.3 mmol/L CHLORIDE 106 98-110 mmol/L CARBON DIOXIDE 27 20-32 mmol/L CALCIUM 8.8 8.6-10.3 mg/dL PROTEIN, TOTAL 6.3 6.1-8.1 g/dL ALBUMIN 3.0 3.6-5.1 g/dL GLOBULIN 3.3 1.9-3.7 g/dL (calc) ALBUMIN/GLOBULIN RATIO 0.9 1.0-2.5 (calc) BILIRUBIN, TOTAL 1.2 0.2-1.2 mg/dL ALKALINE PHOSPHATASE 112 35-144 U/L AST 20 10-35 U/L ALT 10 9-46 U/L MAGNESIUM (622) Reviewed date:11/22/2024 12:29:42 PM Interpretation: Performing Lab:ISATU, [employer](INOR)e1355 [employer], ParchmentIfhyLV[address] Bert Reagan Notes/Report: NON-FASTING; NON-FASTING; NON-FASTING; NON-FASTING; NON-FAST MAGNESIUM 1.6 1.5-2.5 mg/dL CBC (INCLUDES DIFF/PLT) (639 9) Reviewed date:11/22/2024 12:29:42 PM Interpretation: Performing Lab:ISATU [employer]-URX Glxe9512 Art[facility] PharmateAnn [facility], Bethes[facility] HospitalKcukFE[address] Bert Reagan Notes/Report: NON-FASTING; NON-FASTING; NON-FASTING; NON-FASTING; NON-FAST WHITE BLOOD CELL COUNT 7.9 3.8-10.8 Thousand/ uL RED BLOOD CELL COUNT 4.58 4.20-5.80 Million/uL HEMOGLOBIN 12.6 13.2-17.1 g/dL HEMATOCRIT 39.5 38.5-50.0 % MCV 86.2 80.0-100.0 fL MCH 27.5 27.0-33.0 pg MCHC 31.9 32.0-36.0 g/dL For adults, a slight decrease in the calculated MCHC value (in the range of 30 to 32 g/dL) is most likely not clinically significant; however, it should be interpreted with caution in correlation with other red cell parameters and the patient's clinical condition. RDW 14.5 11.0-15.0 % PLATELET COUNT 221 140-400 Thousand/uL MPV 10.1 7.5-12.5 fL ABSOLUTE NEUTROPHILS 5941 1086-7933 cells/uL ABSOLUTE LYMPHOCYTES 2446 100-1344 cells/uL ABSOLUTE MONOCYTES 490 200-950 cells/uL ABSOLUTE EOSINOPHILS 79 15-500 cells/uL ABSOLUTE BASOPHILS 71 0-200 cells/uL NEUTROPHILS 75.2 LYMPHOCYTES 16.7 MONOCYTES 6.2 EOSINOPHILS 1.0 BASOPHILS 0.9 PROTHROMBIN TIME-INR (8847) Reviewed date:11/22/2024 12:29:42 PM Interpretation: Performing Lab:ISATU [employer]-URX [id number] [employer] [facility], Bet[facility] HospitalAadbBP[address] Bert Reagan Notes/Report: NON-FASTING; NON-FASTING; NON-FASTING; NON-FASTING; NON-FAST INR 1.6 Reference Range 0.9-1.1 Moderate-intensity Warfarin Therapy 2.0-3.0 Higher-intensity Warfarin Therapy 3.0-4.0 PT 16.5 9.0-11.5 sec For additional information, please refer to http://education.EoeMobile.RedSeal Networks/faq/YAR872 (This link is being provided for informational/ educational purposes only.) HEMOGLOBIN A1c (496) Reviewed date:11/22/2024 12:29:42 PM Interpretation: Performing Lab:ISATU [employer]-URX Txag9234 [employer] [facility], [place] IspgRV[address] Bert Reagan Notes/Report: NON-FASTING; NON-FASTING; NON-FASTING; NON-FASTING; NON-FAST HEMOGLOBIN A1c 6.9 <5.7 % of total Hgb For someone without known diabetes, a hemoglobin A1c value of 6.5% or greater indicates that they may have diabetes and this should be confirmed with a follow-up test. For someone with known diabetes, a value <7% indicates that their diabetes is well controlled and a value greater than or equal to 7% indicates suboptimal control. A1c targets should be individualized based on duration of diabetes, age, comorbid conditions, and other considerations. Currently, no consensus exists regarding use of hemoglobin A1c for diagnosis of diabetes for children. B TYPE NATRIURETIC PEPTIDE ( BNP) (74039) Reviewed date:11/22/2024 12:29:43 PM Interpretation: Performing Lab:ISATU [employer]-URX Xtea4812 [employer], [employer], Bethesda HospitalXuinPK[address] Bert Reagan Notes/Report: NON-FASTING; NON-FASTING; NON-FASTING; NON-FASTING; NON-FAST B TYPE NATRIURETIC PEPTIDE (BNP) 549 <100 pg/mL BNP levels increase with age in the general population with the highest values seen in individuals greater than 75 years of age. Reference: J. Am. Dahlia. Cardiol. 2002; 40:976-982. ECHOCARDIOGRAM Reviewed date:01/23/2025 08:42:03 AM Interpretation: Performing Lab: Notes/Report: [address] [place] [address] Name: NINO REGALADO Exam Date: 01/16/2025 : 1955 Age 69 years Gender: M Physician: HUMPHREY ELI Facility: [facility] Facility HSV: Outpatient Exam: ECHOCARDIOGRAM Conclusions: 1. Normal left ventricular dimension. 2. Moderately reduced left ventricular function. 3. Estimated left ventricular ejection fraction is 35-40%. 4. There is moderate concentric left ventricle hypertrophy. 5. 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 Normally functioning. 6. There is a mechanical valve in the aortic position. Findings: Left Ventricle:No left ventricular thrombus noted. Normal left ventricular dimension. Moderately reduced left ventricular function. There is moderate concentric left ventricle hypertrophy. Right Ventricle:No right ventricular thrombus is noted. Normal RV size. Mitral Valve:There is a mechanical valve in the mitral position. 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 Tricuspid Valve:Normal tricuspid valve structure. Aortic Valve:There is a mechanical valve in the aortic position. Pulmonic Valve:Normal pulmonic valve structure. Pulmonary Artery:The pulmonary artery is not well visualized. Pericardium:Normal pericardium. There is no significant pericardial effusion. Electronically signed ADELA FUENTES MD 01/22/25 2:20 PM Study Data 2D Measurements LVIDd:5.61 (4.2-5.9) cm LVIDs:5.74 (2.1-4.0) cm IVSDd:1.04 (0.6-1.0) cm IVSDs:0.85 (0.7-1.1) cm LVPWd:1.1 (0.6-1.0) cm LVPWs:1.07 (0.9-1.4) cm Aortic Root:1.56 (2.0-3.7) cm LA/AR Ratio:1.32 EDV:154.3 (67-155) ml EDV Index:76.52 (35-75) ml/m2 ESV:162.63 (22-58) ml ESV Index:80.65 (12-30) ml/m2 LA:2.82 (3.0-4.0) cm LV Mass:287 (88-224) g LV Mass index:142.32 (49-115) g/m2 LVOT Diam:1.93 (1.8-2.4) cm M-MODE Measurements Mitral Valve Mitral PV:1.3 m/s Mitral P.76 mmHg Mitral VTI:28.49 cm Peak E:0.84 (0.6-1.3) m/s MV Mean Cheng:0.74 m/s Mitral Mean Grad:2.48 mmHg Peak A:0.88 (<=.7) m/s Peak A Grad:3.1 mmHg E/A Ratio:0.95 (.75-1.5) e' lateral:6 (>=10) cm/s Legally authenticated by ALFREDO CHAPMAN MD 2025-01-23 07:58:45 e' Medial:9 (>=10) cm/s E/e' Lateral:14 (<=8) E/e' Medial:9.33 (<=8) A' lat:8 cm/s A' sep:6 cm/s MR peak cheng:1.47 m/s PHT:75 ms MVA by PHT:2.93 (4-6) cm2 Tricuspid Valve Regurgitation:Trace to Mild TR Peak Cheng:0.87 m/s TR Peak Grad:3.03 mmHg Aortic Valve Peak:1.64 (<=2.5) m/s Peak Grad:10.76 (<=16) mmHg LVOT PV:0.58 (0.7-1.1) m/s LVOT P.35 mmHg Pulmonic Valve Regurgitation:Trace to Mild Peak Cheng:1.03 (0.6-0.9) m/s Peak Grad:4.24 (<=3) mmHg Report for NINO REGALADO [id number] on 01/16/25 Dictated By: ADELA FUENTES Transcribed By: BERONICA HUFFMAN Transcribed On: 01/23/2025 7:52 AM Electronically signed by: ADELA FUENTES 01/23/2025 Thank you for referring NINO REGALADO to [facility]. Legally authenticated by ALFREDO CHAPMAN MD 2025-01-23 07:58:45 BASIC METABOLIC PANEL (93896 ) Reviewed date:03/06/2025 11:15:46 AM Interpretation: Performing Lab:CB, [facility]-[place] [address]13[address] [facility], [place] DrakePvvkJJ[address] Bert Reagan Notes/Report: NON-FASTING; NON-FASTING GLUCOSE 146 65-99 mg/dL Fasting reference interval For someone without known diabetes, a glucose value >125 mg/dL indicates that they may have diabetes and this should be confirmed with a follow-up test. UREA NITROGEN (BUN) 19 7-25 mg/dL CREATININE 1.29 0.70-1.28 mg/dL EGFR 59 > OR = 60 mL/min/1.73m2 BUN/CREATININE RATIO 15 6-22 (calc) SODIUM 142 135-146 mmol/L POTASSIUM 4.3 3.5-5.3 mmol/L CHLORIDE 109 98-110 mmol/L CARBON DIOXIDE 29 20-32 mmol/L CALCIUM 8.3 8.6-10.3 mg/dL PROTHROMBIN TIME-INR (8847) Reviewed date:03/06/2025 11:15:46 AM Interpretation: Performing Lab:ISATU [employer](INOR)e1355 [employer], ParchmentMpgxAO[address] Bert Reagan Notes/Report: NON-FASTING; NON-FASTING INR 4.2 Reference Range 0.9-1.1 Moderate-intensity Warfarin Therapy 2.0-3.0 Higher-intensity Warfarin Therapy 3.0-4.0 PT 41.5 9.0-11.5 sec For additional information, please refer to http://education.Queralt/faq/KZY223 (This link is being provided for informational/ educational purposes only.) BASIC METABOLIC PANEL (66405 ) Reviewed date:04/03/2025 02:10:09 PM Interpretation: Performing Lab:ISATU [employer](INOR)e1355 [employer], [employer]'s Soul & Grill ExpressDwqhGD[address] Bert Reagan Notes/Report: NON-FASTING; NON-FASTING GLUCOSE 57 [...] Reviewed date:04/03/2025 02:10:10 PM Interpretation: Performing Lab:ISATU, [employer]-[place] Pskw6404 [facility], [place] GbavMQ[address] Bert Reagan Notes/Report: NON-FASTING; NON-FASTING INR 2.7 Reference Range 0.9-1.1 Moderate-intensity Warfarin Therapy 2.0-3.0 Higher-intensity Warfarin Therapy 3.0-4.0 PT 27.1 9.0-11.5 sec For additional information, please refer to http://ConsiderC.Queralt/faq/TZJ620 (This link is being provided for informational/ educational purposes only.) B TYPE NATRIURETIC PEPTIDE ( BNP) (44995) Reviewed date:04/03/2025 05:05:41 PM Interpretation: Performing Lab:ISATU [employer]-URX Gyby9981 [employer] [facility], [place] DnszVB[address] Bert Reagan Notes/Report: NON-FASTING B TYPE NATRIURETIC PEPTIDE (BNP) 1218 <100 pg/mL BNP levels increase with age in the general population with the highest values seen in individuals greater than 75 years of age. Reference: J. Am. Dahlia. Cardiol. 2002; 40:976-982. Medications Medication SIG (Take, Route, Frequency, Duration) Notes Start Date End Date Status Vitamin D3 *Please review a nd pick correct strength-formulati on from [employer] options. If intended option is not shown, discontinue and re-order from Quick Search* Active Allopurinol 300 MG 1 tab(s) orally once a day; Duration: 90 days Active metFORMIN HCl 1000 MG 1 tab(s) orally once a day; Duration: 90 days Active Clopidogrel Bisulfate 75 MG 1 tab(s) orally once a day; Duration: 90 days 07/12/2024 Active Lipitor 80 MG 1 tab(s) orally once a day (at bedtime); Duration: 90 days Active Entresto 97-103 MG 1 tablet Orally Twic e a day; Duration: 90 days 01/29/2025 Active Loratadine 10 MG 1 tab(s) orally once a day; Duration: 90 days Active Basaglar KwikPen 100 UNIT/ML INJECT 25 UNITS SUBCUTANEOUSLY ONCE A DAY; Duration: 60 Active Carvedilol 25 MG 2 tab(s) orally 2 times a day; Duration: 90 days Active Gabapentin 300 mg TAKE 1 CAPSULE 3 TIMES EACH DAY; Duration: 30 03/21/2025 Active Warfarin Sodium 7.5 MG 1 tab(s) orally once a day but not on Sundays Active Tamsulosin HCl 0.4 MG 1 cap(s) orally once a day; Duration: 90 days Active Omeprazole 20 MG 1 cap(s) orally once a day; Duration: 90 days Active INSULIN SYRINGE 1CC DIRECTED; Duration: 30 *Please review for potential replacement for e-prescription and drug interaction check* 01/15/2014 Active B-12 2500 MCG 1 tab(s) sublinguall y once a day; Duration: 30 day(s) Active Breztri Aerosphere 160 MCG-4.8 MCG-9 MCG/INH 2 PUFF(S) INHALED 2 TIMES A DAY; Duration: 30 DAYS *Please review and pick correct strength-formulati on from [employer] options. If intended option is not shown, discontinue and re-order from Quick Search* 01/25/2024 Active Verapamil HCl ER 180 MG 1 cap(s) orally once a day; Duration: 90 days 11/03/2021 Active Nitrostat 0.4 MG DISSOLVE ONE TABLET UNDER TONGUE EVERY 5 MINUTES FOR 3 DOSES NEEDED FOR sublingually every 5 minutes; Duration: 90 days Active Vitamin D (Ergocalciferol) 1.25 MG (54403 UT) TAKE 1 CAPSULE BY MOUTH ONCE A WEEK 28; Duration: 28 Active Immunizations Vaccine Route Administration Date Status Comme nts SHINGRIX IM Intramuscular 03/15/2023 Administered SHINGRIX IM Intramuscular 06/21/2023 Administered Prevnar PCV-13 (Pneumococcal conjugate 13) IM Intramuscular 11/14/2018 Administered Pneumovax 23 IM Intramuscular 12/23/2020 Administered Influenza-Fluzone 3+years (NON-MEDICARE) IM Intramuscular 08/12/2015 Administered Influenza-Fluzone 3+years (NON-MEDICARE) IM Intramuscular 08/16/2017 Administered Fluzone High Dose IM Intramuscular 08/10/2018 Administered Fluzone High Dose IM Intramuscular 08/14/2019 Administered Fluzone High Dose IM Intramuscular 07/15/2020 Administered Fluzone High Dose IM Intramuscular 07/28/2021 Administered Fluzone High Dose IM Intramuscular 09/14/2022 Administered Fluzone High Dose IM Intramuscular 08/16/2023 Administered Fluzone High Dose IM Intramuscular 07/24/2024 Administered Fluvirin (MEDICARE ONLY) IM Intramuscular 08/17/2016 Pendi ng Covid Moderna Unknown 03/05/2021 Administered Covid Moderna Unknown 04/02/2021 Administered Arexvy IM Intramuscular 10/06/2023 Administered Problems Problem Type SNOMED Code ICD Code Onset Dates Problem Status W/U Status Risk Notes Problem Diabetic peripheral neuropathy associated with type 2 diabetes mellitus (1488925491648) Type 2 diabetes mellitus with diabetic neuropathy, unspecified (E11.40) Active confirmed Problem Peripheral circulatory disorder associated with diabetes mellitus (244178791) Type 2 diabetes mellitus with other circulatory complications (E11.59) Active confirmed Problem Type 2 diabetes mellitus with other specified complication (E11.69) Active confirmed Problem Type II diabetes mellitus without complication (541173504) Type 2 diabetes mellitus without complications (E11.9) Active confirmed Problem Diabetes mellitus without complication (919680315) Other specified diabetes mellitus without complications (E13.9) Active confirmed Problem Essential hypertension (42619785) Essential (primary) hypertension (I10) Active confirmed Problem Atherosclerotic heart disease of [place] coronary artery without angina pectoris (158809356332593) Atherosclerotic heart disease of [place] coronary artery without angina pectoris (I25.10) Active confirmed Problem Chronic ischemic heart disease (339044394) Chronic ischemic heart disease, unspecified (I25.9) Active confirmed Problem Mixed anxiety and depressive disorder (923816790) Depression with anxiety (F41.8) Active confirmed Problem Anemia due to blood loss (813894789) Anemia, blood loss (D50.0) Active confirmed Problem Hyperlipidemia (96617079) Hyperlipidemia, unspecified (E78.5) Active confirmed Problem History of polyp of colon (situation) (704922296) History of colon polyps (Z86.010) Active confirmed Problem Long-term current use of insulin (779612402) [facility] current use of insulin (Z79.4) Active confirmed Problem Chronic systolic heart failure (702048964) Chronic systolic heart failure (I50.22) Active confirmed Problem History of heart valve repair with prosthesis (730461222646260) 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) Active confirmed Problem Diabetic peripheral neuropathy (667158886) Diabetic peripheral neuropathy (E11.42) Active confirmed Problem Skin sensation disturbance (98613676) Left hand paresthesia (R20.2) Active confirmed Problem 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 (763007775) 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 (Z79.01) Active confirmed Problem Primary hypertension (83264186) Primary hypertension (I10) Active confirmed Problem 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) Active confirmed Problem Systolic heart failure (045609256) Systolic CHF with reduced left ventricular function, NYHA class 2 (I50.20) Active confirmed Problem Chronic cough (66906006) Chronic cough (R05.3) Active confirmed Vital Signs Heart Rate 64 /min 04/02/2025 Temperature 97.4 degrees Fahrenheit 04/02/2025 Blood pressure diastolic 90 mm Hg 04/02/2025 Height 5 ft 9.5 in in 04/02/2025 Blood pressure systolic 124 mm Hg 04/02/2025 Weight 189 lbs 04/02/2025 BMI 27.51 kg/m2 04/02/2025 Encounters Encounter Location Date Provider Diagnosis [facility] [address] [place] [address] [facility] [address] [place] [address] 01/26/2025 Provider Migration Chronic systolic heart failure I50.[address] [address] 07/24/2024 Humphrey Eli Chronic systolic heart failure I50.22 ; Type 2 diabetes mellitus with diabetic neuropathy, unspecified E11.40 ; Chronic ischemic heart disease, unspecified I25.9 ; Aortic valve replaced Z95.2 and Immunization(s) administered Z23 [address] [address] 11/20/2024 Humphrey Eli Chronic systolic heart failure I50.22 ; Essential (primary) hypertension I10 ; Chronic ischemic heart disease, unspecified I25.9 ; Aortic valve replaced Z95.2 and Type 2 diabetes mellitus with other specified complication E11.[address] [address] 12/06/2024 Humphrey Eli Type 2 diabetes mellitus without complications E11.9 ; Essential (primary) hypertension I10 ; Chronic systolic heart failure I50.22 and Mechanical heart valve present Z95.[address] [address] 01/10/2025 Humphrey Besson Chronic systolic heart failure I50.22 and Hospital discharge follow-up Z09 [facility] [place] [address] [address] 01/29/2025 Humphrey Besson Systolic CHF with reduced left ventricular function, NYHA class 2 I50.20 [facility] [place] [address] [address] 03/05/2025 Humphrey Besson Systolic CHF with reduced left ventricular function, NYHA class 2 I50.20 ; Type 2 diabetes mellitus with diabetic neuropathy, unspecified E11.40 and Aortic valve replaced Z95.2 [facility] [place] [address] [address] 04/02/2025 Humphrey Besson Chronic systolic heart failure I50.22 and Aortic valve replaced Z95.2 [facility] [place] [address] [address] 07/12/2024 Humphrey Besson [facility] [address] [address] 01/07/2025 Humphrey Besson Chronic systolic heart failure I50.22 [facility] [place] [address] [place] [address] 02/22/2025 Humphrey Besson [facility] [place] [address] [place] [address] 03/06/2025 Humphreydo Eli Assessments Encounter Date Diagnosis (ICD Code) Assessment Notes Treatment Notes Treatment Clinical Notes Section Notes 07/24/2024 Chronic systolic heart failure (ICD-10 - I50.22) Patient appears slightly fluid overloaded, and has been more dyspneic. Check echocardiogram. Blood pressure under good control. No changes at this point, will check labs and echo and then readjust medications as indicated 07/24/2024 Type 2 diabetes mellitus with diabetic neuropathy, unspecified (ICD-10 - E11.40) Check A1c, previously has been stable 11/20/2024 Chronic systolic heart failure (ICD-10 - I50.22) Patient has diffuse crackles on exam. Will draw BNP to evaluate fluid status. Will personally review labs and adjust medications if needed. 11/20/2024 Essential (primary) hypertension (ICD-10 - I10) Chronic. BP 118/70 in office today. On carvedilol. Will start Entresto for kidney protection due to patient's history of diabetes and hypertension. 12/06/2024 Type 2 diabetes mellitus without complications (ICD-10 - E11.9) Requires refills on needles and test strips. Continue medications. 12/06/2024 Essential (primary) hypertension (ICD-10 - I10) BP is well in office today. Continue medications. Follow-up in 2 months. 01/07/2025 Chronic systolic heart failure (ICD-10 - I50.22) 01/10/2025 Chronic systolic heart failure (ICD-10 - I50.22) Patient had a very brisk response to Lasix and seems to be euvolemic at this point. I will not continue Lasix but will increase Entresto as he is only been on the minimum dose. Will increase to the 49 mg dose twice daily. I will see him back in 2 weeks. Echo to requantify ejection fraction and follow-up at that point. 01/10/2025 Hospital discharge follow-up (ICD-10 - Z09) Reviewed hospital/ER records, reconciled medications, reviewed x-ray and EKG from that ER visit 01/26/2025 Chronic systolic heart failure (ICD-10 - I50.22) 01/29/2025 Systolic CHF with reduced left ventricular function, NYHA class 2 (ICD-10 - I50.20) Will increase Entresto dose to 46/51. Instructed to pick this up at the pharmacy today and ensure it is increased dosage, if any problems may give us a call. Will follow up in one month. Please bring all medications with you at follow up appointment. Given decrease in ejection fraction, plan to titrate Entresto to max dose, if well tolerated will begin therapy with Spirinolactone to work torwards GDMT for HFrEF. 03/05/2025 Systolic CHF with reduced left ventricular function, NYHA class 2 (ICD-10 - I50.20) Blood pressures little high today. Euvolemic. I am not sure he is actually on the higher dose of Entresto. I do not think he is picked up the new prescription. He will do this and I will see him back in 4 weeks. In the meantime we will check kidney function and also PT and INR given his warfarin therapy for his mechanical valve 03/05/2025 Type 2 diabetes mellitus with diabetic neuropathy, unspecified (ICD-10 - E11.40) 04/02/2025 Chronic systolic heart failure (ICD-10 - I50.22) On appropriate highest dose of Entresto. No change in plans, I will see him in 4 weeks. Will check electrolytes. Consider ramping up diuretic therapy if he still has edema. 04/02/2025 Aortic valve replaced (ICD-10 - Z95.2) Check INR. I'll review personally 03/05/2025 Aortic valve replaced (ICD-10 - Z95.2) 12/06/2024 Chronic systolic heart failure (ICD-10 - I50.22) Continue medications. Tolerating new meds with ANRI well.... no changes at this point. 11/20/2024 Chronic ischemic heart disease, unspecified (ICD-10 - I25.9) EKG done in office shows chronic atrial fibrillation with breakthrough PVCs. This is consistent with the patient's palpitations. 07/24/2024 Chronic ischemic heart disease, unspecified (ICD-10 - I25.9) 07/24/2024 Aortic valve replaced (ICD-10 - Z95.2) Currently on warfarin. Check INR. 11/20/2024 Aortic valve replaced (ICD-10 - Z95.2) Patient on long-term anticoagulation due to aortic valve replacement. He denies any issues with easy bruising or bleeding. Will draw PT/INR and review results personally. 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 Follow-up in 2 months. Good rate control... 11/20/2024 Type 2 diabetes mellitus with other specified complication (ICD-10 - E11.69) Microalbumin done in-house showed albumin in his urine. Will start Entresto for kidney protection due to patient's history of diabetes and hypertension. Will draw A1C and review results personally. May adjust medication regimen if indicated. 07/24/2024 Immunization(s) administered (ICD-10 - Z23) 11/20/2024 Other Labs as above. Will review results personally. Follow-up in 2 months 01/29/2025 Other Overall complex visit based on review of echocardiogram, medication reconciliation and establishing better medication reconciliation process. Instructions given to patient re: bring his medicines back in next visit Plan Of Treatment Pending Test Test Name Order Date Urinalysis 01/16/2007 Urinalysis 11/02/2006 Microalbumin (In-House) 11/02/2006 Microalbumin (In-House) 07/17/2007 Microalbumin (In-House) 01/16/2007 Microalbumin (In-House) 09/14/2022 N-HbA1C 01/11/2008 N-protime w/INR standing order 1 N-protime w/INR standing order 2 M-INR/PT 12/23/2020 M-Basic Metabolic Panel 11/03/2021 M-Hemoglobin A1C 11/03/2021 M-Vitamin B12 07/07/2021 M-Vitamin D 25 Hydroxy 07/07/2021 COMPREHENSIVE METABOLIC PANEL (REFL) (37 015) 12/14/2022 CBC (INCLUDES DIFF/PLT) (1499) 3 PROTHROMBIN TIME-INR (8847) 12/14/2022 HEMOGLOBIN A1c (496) 12/14/2022 Future Test Test Name Order Date H-CBC with AUTO DIFF 08/15/2015 H-CMP 08/15/2015 Next Appt Details Provider Name:Humphrey Eli, 05/30/2025 11:30:00 AM, [address], [address], Insurance Providers Payer Name Payer Address Payer Phone Subscriber Number Group Number Insured Name Patient Relationship to Insured Coverage Start Date Coverage End Date [place] [address] [place] [address] [phone] [id number] Nino Regalado Self - patient is the insured [facility] [address] [address] [place] [address] [phone] [id number] Nino Regalado Self - patient is the insured [employer] [address] [place] [address] [address] [place] [address] ACL Nino Regalado Self - patient is the insured Medications Administered Medication Instructions Date of Administration Dosage Notes Kenalog 06/01/2013 1 Medical (General) History Medical History History ICD Code WA treated medically in 2000 with preser farnaz LV function DM - Type II Hyperlipidemia Hypertension Tobacco Abuse 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 Needs repeat 04/13 Surgical History Surgery Date(Month/Year) cholecystectomy 2014 CABG, valve replacement 2009 cardiac stents x 2 2016 colonoscopy 2019 Severe phimosis with urinary retention and dorsal slit procedure at [facility] 08/15 Hospitalization History Reason Date(Month/Year) [place] x4 days 07/2023 bleeding from surgery 06/3015 gallbladder surgery 07/21/15
--- OUTSIDE RECORDS SUMMARY | 2025-05-14 01:42 | XMS_ITS | Clinical Summary ---
Author Organization [facility] Address [address] [place] [address] Care Team Providers Care Licensed Tax Consultant Name Role Phone Humphrey Chavarria MD Primary Care Provider [phone] Allergies Active Allergy Reactions Criticality Noted Date Comments Aspirin 02/23/2021 Other Reaction(s): upset stomach Medications allopurinol (Zyloprim) 300 MG tablet 300 mg. 08/11/2023 Active atorvastatin (Lipitor) 80 MG tablet 80 mg. 08/11/2023 Active Blood Glucose Monitoring Suppl (FreeStyle Lite) w/Device kit 08/17/2023 Active carvedilol (Coreg) 25 MG tablet twice a day. Active clopidogrel (Plavix) 75 MG tablet 75 mg. 08/11/2023 Active Cyanocobalamin 2500 MCG sublingual tablet daily. Active Docusate Sodium (DSS) 100 MG capsule 100 mg. 08/11/2023 Active ergocalciferol (Vitamin D-2) 1.25 MG (39819 UT) capsule TAKE 1 CAPSULE BY MOUTH ONCE A WEEK 28 for 28 Active Lasix 40 MG tablet 40 mg. 08/13/2023 Active gabapentin (Neurontin) 300 MG capsule 300 mg. 06/21/2023 Active FREESTYLE LITE test strip 08/17/2023 Active hydroCHLOROthiaz lucía (HYDRODiuril) 50 MG tablet 07/25/2023 Active Toujeo Max SoloStar 300 UNIT/ML solution pen-injector 25 Units, SubCutaneous , Daily 08/11/2023 Active Easy Comfort Pen [place] 31G X 5 MM misc 05/13/2023 Active isosorbide mononitrate ER (Imdur) 30 MG 24 hr tablet 1 tab(s) orally once a day (in the morning) for 90 days Active FreeStyle lancets 08/17/2023 Active loratadine (Claritin) 10 MG tablet 10 mg. 08/11/2023 Active losartan (Cozaar) 100 MG tablet 06/28/2023 Active losartan-hydroCH LOROthiazide (Hyzaar) 100-12.5 MG tablet daily. Active metFORMIN (Glucophage) 1000 MG tablet 1,000 mg. 08/11/2023 Acti ve Nitrostat 0.4 MG SL tablet 0.4 mg. 08/11/2023 Active omeprazole (PriLOSEC) [address] capsule 20 mg. 08/11/2023 Active potassium chloride CR (Klor-Con) 10 MEQ ER tablet TAKE 1 TABLET BY MOUTH TWICE DAILY for 90 days Active tamsulosin (Flomax) 0.4 MG 24 hr capsule 0.4 mg. 08/11/2023 Activ e warfarin (Coumadin) 7.5 MG tablet 3.75 mg. 08/11/2023 Active Active Problems No known active problems Family History Medical History Relation Name Comments Cancer Brother 1 Cancer Brother 2 Cancer Father Cancer Sister Relation Name Status Comments Brother 1 Alive Brother 2 Alive Father Sister Alive Social History Tobacco Use Types Packs/Day Years Used Date Smoking Tobacco: Former Cigarettes Q uit: 1999 Smokeless Tobacco: Current Chew Tobacco Cessation:Ready to Q uit: Not Asked; Counseling Given: Not Answered Alcohol Use Standard Drinks/Week Comments Not Currently 0 (1 standard drink = 0.6 oz pur e alcohol) Sex and Gender Information Value Date Recorded Sex Assigned at Not on file Legal Sex Male 7:08 PM EDT Gender Identity Not on file Sexual Orientation Not on file Last Filed Vital Signs Vital Sign Reading Time Taken Comments Blood Pressure - - Pulse - - Temperature - - Respiratory Rate - - Oxygen Saturation - - Inhaled Oxygen Concentration - - Weight 81.2 kg (179 lb) 08/25/2023 12:53 PM EDT Height 180.3 cm (5' 11 ) 08/25/2023 12:53 PM EDT Body Mass Index 24.97 08/25/2023 12:53 PM EDT Plan of Treatment Health Maintenance Due Date Last Done Comments CT Colonography 1953 Colonoscopy 1953 Colorectal Cancer Screening 1953 FIT-DNA (Cologuard) 1953 FIT 1953 FOBT 1953 Hepatitis C Screening 1953 Lipid Panel 1953 Medicare Annual Wellness (AWV) 1953 Sigmoidoscopy 1953 Hepatitis B Screening 1971 DTaP/Tdap/Td Vaccines (1 - Tdap) 1972 Pneumococcal Vaccine: 50+ Years (1 of 1 - PCV) 2003 Zoster Vaccines (1 of 2) 2003 COVID-19 Vaccine (3 - season) 2024 04/02/2021, 03/05/2021 Diabetes Screening 08/10/2024 08/10/2023 Depression Risk Screening 10/24/2024 Fall Risk Screening 10/24/2024 SDOH Screening 10/24/2024 Influenza Vaccine (#1) 2025 3, 07/28/2021, 07/15/2020, Additional history exists HIB Vaccines Aged Out No longer eligi ble based on patient's age to complete this topic HPV Vaccines Aged Out No longer eligi ble based on patient's age to complete this topic Hepatitis A Vaccines Aged Out No long er eligible based on patient's age to complete this topic Hepatitis B Vaccines Aged Out No long er eligible based on patient's age to complete this topic IPV Vaccines Aged Out No longer eligi ble based on patient's age to complete this topic Meningococcal B Vaccine Aged Out No l onger eligible based on patient's age to complete this topic Meningococcal Vaccine Aged Out No maverick nora eligible based on patient's age to complete this topic Rotavirus Vaccines Aged Out No longer eligible based on patient's age to complete this topic Procedures Procedure Name Priority Date/Time Associated Diagnosis Comments CMP COMPREHENSIVE METABOLIC PANEL STAT 08/10/2023 8:28 PM EDT from Last 3 Months or Most Recently Relevant to Health Maintenance Results * (ABNORMAL) Comprehensive metabolic panel (08/10/2023 8:28 PM EDT) Sodium 139 136 - 145 mmol/L 08/10/2023 8:59 PM EDT [facility] Remisol 2.0 SS Potassium 4.2 3.5 - 5.1 mmol/L 08/10/2023 8:59 PM EDT [facility] Remisol 2.0 SS Chloride 109 98 - 110 mmol/L 08/10/2023 8:59 PM EDT [facility] Remisol 2.0 SS CO2 23.0 21.0 - 31.0 mmol/L 08/10/2023 8:59 PM EDT [facility] Remisol 2.0 SS Anion Gap 7.0 2.0 - 11.0 08/10/2023 8:59 PM EDT [facility] Remisol 2.0 SS Calcium 9.1 8.6 - 10.2 mg/dL 08/10/2023 8:59 PM EDT [facility] Remisol 2.0 SS Glucose 156(H) 74 - 109 mg/dL 08/10/2023 8:59 PM EDT [facility] Remisol 2.0 SS BUN 36(H) 7 - 25 mg/dL 08/10/2023 8:59 PM EDT [facility] Remisol 2.0 SS Creatinine 1.45(H) 0.70 - 1.30 mg/dL 08/10/2023 8:59 PM EDT [facility] Remisol 2.0 SS BUN/Creatinine Ratio 24.8(H) 6.0 - 22.0 08/10/2023 8:59 PM EDT [facility] Remisol 2.0 SS Albumin 3.9 3.5 - 5.2 Gram/dL 08/10/2023 8:59 PM EDT [facility] Remisol 2.0 SS Total Protein 7.1 6.4 - 8.9 Gram/dL 08/10/2023 8:59 PM EDT [facility] Remisol 2.0 SS A/G Ratio 1.2 1.0 - 1.8 08/10/2023 8:59 PM EDT [facility] Remisol 2.0 SS Alkaline Phosphatase 99 34 - 104 Units/Lite r 08/10/2023 8:59 PM EDT [facility] Remisol 2.0 SS ALT (SGPT) 11 <=32 Units/Lite r 08/10/2023 8:59 PM EDT [facility] Remisol 2.0 SS AST 21 13 - 39 Units/Lite r 08/10/2023 8:59 PM EDT [facility] Remisol 2.0 SS Total Bilirubin 1.20(H) 0.30 - 1.00 mg/dL 08/10/2023 8:59 PM EDT [facility] Remisol 2.0 SS Globulin, Total 3 8:59 PM EDT [facility] Remisol 2.0 SS EGFR 52(L) >=60 mL/min/1.7 3m2 08/10/2023 8:59 PM EDT [facility] Remisol 2.0 SS Comment:eGFR calculation per formed using the CKD-EPI 2020 equation (race variable excluded) Blood 08/10/2023 8:28 PM EDT 08/10/2023 8:33 PM EDT Paul Stubbs MD LAB BLOOD ORDERABLES E dited Result - Final [facility] [address] [place] [address], [facility] CH Remisol 2.0 SS Pathology Department [address] [place] [address] from Last 3 Months or Most Recently Relevant to Health Maintenance Insurance [employer] [facility] MEDICARE Care Teams Licensed Tax Consultant Relationship Specialty Start Date End Date Besson, Humphrey A, MD [address] [place] [address] PCP - General Adolescent Medicine 12/25/20
--- NOTE | 2025-05-14 01:48 | XR_ITS ---
PROCEDURE INFORMATION: Exam: XR Chest Exam date and time: 05/14/2025 1:50 AM Age: 69 years old Clinical indication: Cough; Additional info: Cough, cp TECHNIQUE: Imaging protocol: Radiologic exam of the chest. Views: 2 views. COMPARISON: CR XR CHEST 2V 01/02/2025 2:31 AM FINDINGS: Lungs: Unremarkable. No consolidation. Pleural spaces: Unremarkable. No pleural effusion. No pneumothorax. Heart/Mediastinum: Unremarkable. No cardiomegaly. Aortic valve replacement. Median sternotomy. Bones/joints: Unremarkable. IMPRESSION: No acute findings.
[2025-05-14] MEDS: ACETAMINOPHEN 500MG TAB 1000 MG PO (01:58)
[2025-05-14] MEDS: NITROGLYCERIN 0.4MG SL TABLET 0.4 MG SL (01:59)
[2025-05-14] MEDS: BELLADONNA ALKALOIDS 60 ML ML PO (01:59)
[2025-05-14 02:02] LABS: Hematocrit 37.9 % (42.0-52.0); Hemoglobin 12.1 g/dL (14.1-18.0); Immature Granulocytes % 0.2 %; Mean Corpuscular HGB Conc 31.9 g/dL (31.8-35.4); Mean Corpuscular Hemoglobin 28.8 pg (27.0-31.2); Mean Corpuscular Volume 90.2 fl (80-94); Nucleated Red Blood Cells % 0 %; Platelet Count 199 K/mm3 (142-424); Red Blood Count 4.20 M/mm3 (4.60-6.20); Red Cell Distribution Width-SD 49.1 fL; White Blood Count 6.1 K/mm3 (4.8-10.8)
[2025-05-14 02:04] LABS: Albumin Level 3.2 g/dl (3.5-5.0); Chloride 104 mmol/L (98-107)
[2025-05-14 02:05] LABS: Potassium 4.2 mmoL/L (3.5-5.1); Sodium 136 mmol/L (136-145)
[2025-05-14 02:07] LABS: Alanine Aminotransferase 13 U/L (12-78); Albumin/Globulin Ratio 1.0 (1.1-1.8); Alkaline Phosphatase 106 U/L (38-126); Anion Gap 6.2 mEq/L (5-15); Aspartate Amino Transferase 32 U/L (17-59); Bilirubin,Total 1.2 mg/dl (0.2-1.3); Blood Urea Nitrogen 20 mg/dl (9-20); Carbon Dioxide 30 mmol/L (22.0-30.0); Creatinine Clearance Estimated 64 mL/min (50-200); Creatinine,Serum 1.30 mg/dl (0.66-1.25); Estimated Glomerular Filt Rate 54 ml/min (>60); GFR (African American) 66 ML/MIN (>60); Globulin 3.3 g/dL (1.3-3.2); Total Protein,Serum 6.5 g/dl (6.3-8.2)
[2025-05-14 02:08] LABS: Calcium 8.5 mg/dl (8.4-10.2); Glucose 150 mg/dl (74-100)
[2025-05-14 02:20] LABS: Troponin I < 0.01 ng/ml (0.00-0.034)
[2025-05-14 03:31] LABS: Hepatitis C Ab Qual. W/ RFX NEGATIVE (Negative)
[2025-05-14 03:58] LABS: D-Dimer 0.65 ug/mL (0.0-0.5)
[2025-05-14 05:09] LABS: Troponin I < 0.01 ng/ml (0.00-0.034)
== END 2025-05-14 05:27 | disposition home or self-care (01) ==
PROVIDERS: Emergency Provider Emergency Medicine; PCP Internal Medicine Adolescent Medicine
DX: R07.9 Chest pain, unspecified (principal); E11.9 Type 2 diabetes mellitus without complications; E78.5 Hyperlipidemia, unspecified; Z87.891 Personal history of nicotine dependence
CPT/HCPCS: 71046; 80053; 84484; 85025; 85378; 86803; 87389; 93005; 99285

== ENCOUNTER 2025-09-26 04:18 | Emergency (ER) | payer MEDICARE, OTHER, SELFPAY ==
--- OUTSIDE RECORDS SUMMARY | 2025-01-24 04:15 | XMS_ITS ---
Author Organization [facility] PE D [facility] Address [address] [place] [address] Care Team Providers Care Steffen House Supervisor Name Role Phone Humphrey Chavarria Primary Care Provider REASON FOR VISIT fu Encounters Encounter Location Date Provider Diagnosis [address] [address] 01/24/2025 Humphrey Chavarria Plan Of Treatment Next Appt Details Provider Name:Humphrey Chavarria, 12/03/2025 09:15:00 AM, [address] [place] [address], [id number], Progress Notes * Nino REGALADO WDOB:1955 (69 yo M)Acc No.[id number]:01/24/2025 Progress Notes Patient: Nino PICKENS Provider: Debi Chavarria MD :1955 A ge:69 Y S ex:Male Date:01/24/2025 Address:[address] [place] [address], [place] [id number] Subjective: * Chief Complaints: * 1 . Fu. * Medical History: Objective: * Vitals: Assessment: Plan: * Treatment: * * Electronic signature of Tom Chavarria MD FAAP on 09/26/2025 at 04:26 AM EST Sign off status: Pending * Provider: Debi Chavarria MD Date: 0 01/24/2025 Generated for Sharon gerard/Padmini/Gagandeep on: 11/27/2024 04:26 AM EST
--- OUTSIDE RECORDS SUMMARY | 2025-01-26 16:30 | XMS_ITS ---
Author Organization [facility] Address [address] [facility] [address] [place] [address] Care Team Providers Care Endbander Name Role Phone Tom Chavarriahen Primary Care Provider Migration, Provider Unavailable Unavailable Allergies Allergen (clinical drug ingredient) Drug/Non Drug Allergy documented on EMR Reaction Allergy Type Onset Date Status aspirin Aspirin upset stomach Drug Allergy Act skip [facility] Encounter Medications Medication SIG (Take, Route, Frequency, Duration) Notes Start Date End Date Status metFORMIN HCl 1000 MG 1 tab(s) orally once a day; Duration: 90 days Active Clopidogrel Bisulfate 75 MG 1 tab(s) orally once a day; Duration: 90 days 07/12/2024 Active Lipitor 80 MG 1 tab(s) orally once a day (at bedtime); Duration: 90 days Active Omeprazole 20 MG 1 cap(s) orally once a day; Duration: 90 days Active Breztri Aerosphere 160 MCG-4.8 MCG-9 MCG/INH 2 PUFF(S) INHALED 2 TIMES A DAY; Duration: 30 DAYS *Please review and pick correct strength-formulati on from [facility] options. If intended option is not shown, discontinue and re-order from Quick Search* 01/25/2024 Active Verapamil HCl ER 180 MG 1 cap(s) orally once a day; Duration: 90 days 11/03/2021 Active Nitrostat 0.4 MG DISSOLVE ONE TABLET UNDER TONGUE EVERY 5 MINUTES FOR 3 DOSES NEEDED FOR sublingually every 5 minutes; Duration: 90 days Active Vitamin D (Ergocalciferol) 1.25 MG (91366 UT) TAKE 1 CAPSULE BY MOUTH ONCE A WEEK 28; Duration: 28 Active INSULIN SYRINGE 1CC DIRECTED; Duration: 30 *Please review for potential replacement for e-prescription and drug interaction check* 01/15/2014 Active B-12 2500 MCG 1 tab(s) sublinguall y once a day; Duration: 30 day(s) Active Warfarin Sodium 7.5 MG 1 tab(s) orally once a day; Duration: 90 days Active Basaglar KwikPen 100 UNIT/ML INJECT 25 UNITS SUBCUTANEOUSLY ONCE A DAY; Duration: 60 Active Vitamin D3 *Please review a nd pick correct strength-formulati on from [employer] options. If intended option is not shown, discontinue and re-order from Quick Search* Active Entresto 49-51 MG 1 tab(s) orally 2 times a day; Duration: 30 days 11/20/2024 Active Loratadine 10 MG 1 tab(s) orally once a day; Duration: 90 days Active Carvedilol 25 MG 2 tab(s) orally 2 times a day; Duration: 90 days Active Gabapentin 300 MG TAKE 1 CAPSULE BY MOUTH THREE TIMES A DAY orally 3 times a day; Duration: 30 days 11/14/2024 Active Allopurinol 300 MG 1 tab(s) orally once a day; Duration: 90 days Active Tamsulosin HCl 0.4 MG 1 cap(s) orally once a day; Duration: 90 days Active Encounters Encounter Location Date Provider Diagnosis [facility] PED [facility] [address] [facility] [address] [place] [address] 01/26/2025 Provider Migration Chronic systolic heart failure I50.22 Assessments Encounter Date Diagnosis (ICD Code) Assessment Notes Treatment Notes Treatment Clinical Notes Section Notes 01/26/2025 Chronic systolic heart failure (ICD-10 - I50.22) Plan Of Treatment Medication Medication Name Sig Start Date Stop Date Notes Entresto 49-51 MG 1 tab(s) orally 2 ti mes a day; Duration: 30 days 11/20/2024 Next Appt Details Provider Name:Humphrey Chavarria, 12/03/2025 09:15:00 AM, [address] [address], [place], [address], Progress Notes * Nino REGALADO WDOB:1955 (69 yo M)Acc No.[id number]:01/26/2025 Patient: Nino PICKENS Provider: Jayro Guajardo :1955 A ge:69 Y S ex:Male Date:01/26/2025 Address:[address] [place] [address], [place], [id number] Pcp:Humphrey Chavarria Subjective: * Chief Complaints: * 1 . [facility] Con[facility] Encounter. * Medical History: * Medications: T aking Vitamin D3 , Notes to Pharmacist: *Please review and pick correct strength-formulation from [facility] options. If intended option is not shown, discontinue and re-order from Quick Search*, Taking B-12 2500 MCG Tablet 1 tab(s) sublingually once a day , Taking INSULIN SYRINGE 1CC DIRECTED , Notes to Pharmacist: *Please review for potential replacement for e-prescription and drug interaction check*, Taking Vitamin D (Ergocalciferol) 1.25 MG (36859 UT) Capsule TAKE 1 CAPSULE BY MOUTH ONCE A WEEK 28 , Taking Nitrostat 0.4 MG Tablet Sublingual DISSOLVE ONE TABLET UNDER TONGUE EVERY 5 MINUTES FOR 3 DOSES NEEDED FOR sublingually every 5 minutes , Taking Verapamil HCl ER 180 MG Capsule Extended Release 24 Hour 1 cap(s) orally once a day , Taking Breztri Aerosphere 160 MCG- 4.8 MCG-9 MCG/INH AEROSOL 2 PUFF(S) INHALED 2 TIMES A DAY , Notes to Pharmacist: *Please review and pick correct strength-formulation from [facility] options. If intended option is not shown, discontinue and re-order from Quick Search*, Taking Omeprazole 20 MG Capsule Delayed Release 1 cap(s) orally once a day , Taking Lipitor 80 MG Tablet 1 tab(s) orally once a day (at bedtime) , Taking Clopidogrel Bisulfate 75 MG Tablet 1 tab(s) orally once a day , Taking metFORMIN HCl 1000 MG Tablet 1 tab(s) orally once a day , Taking Tamsulosin HCl 0.4 MG Capsule 1 cap(s) orally once a day , Taking Allopurinol 300 MG Tablet 1 tab(s) orally once a day , Taking Gabapentin 300 MG Capsule TAKE 1 CAPSULE BY MOUTH THREE TIMES A DAY orally 3 times a day , Taking Carvedilol 25 MG Tablet 2 tab(s) orally 2 times a day , Taking Basaglar KwikPen 100 UNIT/ML Solution Pen-injector INJECT 25 UNITS SUBCUTANEOUSLY ONCE A DAY , Taking Warfarin Sodium 7.5 MG Tablet 1 tab(s) orally once a day , Taking Loratadine 10 MG Tablet 1 tab(s) orally once a day * Allergies: A spirin: upset stomach. Objective: * Vitals: Assessment: * Assessment: 1. C hronic systolic heart failure - I50.22 (Primary) Plan: * Treatment: * * Electronic signature of Prov ider Migration on 09/26/2025 at 04:26 AM EST Sign off status: Pending * Provider: Jayro velez Migration Date: 0 01/26/2025 Generated for Sharon gerard/Padmini/Gagandeep on: 1 11/27/2024 04:26 AM EST
--- OUTSIDE RECORDS SUMMARY | 2025-02-12 04:45 | XMS_ITS ---
Author Organization [facility] PE D SALVATORE Address [address] [place] [address] Care Team Providers Care Supervisor Capacitor Processing Name Role Phone Humphrey Chavarria Primary Care Provider [phone] REASON FOR VISIT med ck Encounters Encounter Location Date Provider Diagnosis [address] [address] 02/12/2025 Humphrey Chavarria Plan Of Treatment Next Appt Details Provider Name:Humphrey Chavarria, 12/03/2025 09:15:00 AM, [address] [place] [address], [phone], Progress Notes * Nino REGALADO WDOB:1955 (69 yo M)Acc No.[id number]:02/12/2025 Progress Notes Patient: Nino PICKENS Provider: Debi Chavarria MD :1955 A ge:69 Y S ex:Male Date:02/12/2025 Address:[address] [place] [address], Eulogio OSEGUERA [id number] Subjective: * Chief Complaints: * 1 . Med ck. * Medical History: Objective: * Vitals: Assessment: Plan: * Treatment: * * Electronic signature of oTm Chavarria MD FAAP on 09/26/2025 at 04:25 AM EST Sign off status: Pending * Provider: Debi Chavarria MD Date: 0 02/12/2025 Generated for Sharon gerard/Padmini/Gagandeep on: 1 11/27/2024 04:25 AM EST
--- OUTSIDE RECORDS SUMMARY | 2025-02-26 05:15 | XMS_ITS ---
Author Organization [facility] PE D SALVATORE Address [address] [place] [address] Care Team Providers Care Push Button Switch Assembler Name Role Phone Humphrey Chavarria Primary Care Provider [phone] REASON FOR VISIT fu Encounters Encounter Location Date Provider Diagnosis [address] [address] 02/26/2025 Humphrey Chavarria Plan Of Treatment Next Appt Details Provider Name:Humphrey Chavarria, 12/03/2025 09:15:00 AM, [address] [place] [address], [phone], Progress Notes * Nino REGALADO WDOB:1955 (69 yo M)Acc No.[id number]:02/26/2025 Progress Notes Patient: Nino PICKENS Provider: Debi Chavarria MD :1955 A ge:69 Y S ex:Male Date:02/26/2025 Address:[address] [place] [address], Eulogio OREILLY [id number] Subjective: * Chief Complaints: * 1 . Fu. * Medical History: Objective: * Vitals: Assessment: Plan: * Treatment: * * Electronic signature of Tom Chavarria MD FAAP on 09/26/2025 at 04:26 AM EST Sign off status: Pending * Provider: Debi Chavarria MD Date: 0 02/26/2025 Generated for Sharon gerard/Padmini/Gagandeep on: 11/27/2024 04:26 AM EST
--- OUTSIDE RECORDS SUMMARY | 2025-09-03 06:15 | XMS_ITS ---
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 Name Role Phone Humphrey Chavarria Primary Care Provider Allergies Allergen (clinical drug ingredient) Drug/Non Drug Allergy documented on EMR Reaction Allergy Type Onset Date Status aspirin Aspirin upset stomach Drug Allergy Act skip Results Component Value Reference Range Notes COMPREHENSIVE METABOLIC PANE L (63105) Reviewed date:09/09/2025 02:11:39 PM Interpretation: Performing Lab:CB, [facility] [id number], [facility] Bert Reagan Notes/Report: NON-FASTING; NON-FASTING; NON-FASTING; NON-FASTING GLUCOSE 80 65-99 mg/dL Fasting reference interval UREA NITROGEN (BUN) 22 7-25 mg/dL CREATININE 1.32 0.70-1.28 mg/dL EGFR 58 > OR = 60 mL/min/1.73m2 BUN/CREATININE RATIO 17 6-22 (calc) SODIUM 145 135-146 mmol/L POTASSIUM 5.0 3.5-5.3 mmol/L CHLORIDE 111 98-110 mmol/L CARBON DIOXIDE 29 20-32 mmol/L CALCIUM 8.5 8.6-10.3 mg/dL PROTEIN, TOTAL 5.9 6.1-8.1 g/dL ALBUMIN 2.9 3.6-5.1 g/dL GLOBULIN 3.0 1.9-3.7 g/dL (calc) ALBUMIN/GLOBULIN RATIO 1.0 1.0-2.5 (calc) BILIRUBIN, TOTAL 0.5 0.2-1.2 mg/dL ALKALINE PHOSPHATASE 109 35-144 U/L AST 20 10-35 U/L ALT 12 9-46 U/L CBC (INCLUDES DIFF/PLT) (639 9) Reviewed date:09/09/2025 02:11:39 PM Interpretation: Performing Lab:[facility] [id number] [facility], [facility] HospitalFhovLP[address] eBrt Reagan Notes/Report: NON-FASTING; NON-FASTING; NON-FASTING; NON-FASTING WHITE BLOOD CELL COUNT 6.5 3.8-10.8 Thousand/ uL RED BLOOD CELL COUNT 4.20 4.20-5.80 Million/uL HEMOGLOBIN 11.8 13.2-17.1 g/dL HEMATOCRIT 38.6 38.5-50.0 % MCV 91.9 80.0-100.0 fL MCH 28.1 27.0-33.0 pg MCHC 30.6 32.0-36.0 g/dL For adults, a slight decrease in the calculated MCHC value (in the range of 30 to 32 g/dL) is most likely not clinically significant; however, it should be interpreted with caution in correlation with other red cell parameters and the patient's clinical condition. RDW 14.5 11.0-15.0 % PLATELET COUNT 217 140-400 Thousand/uL MPV 10.5 7.5-12.5 fL ABSOLUTE NEUTROPHILS 4765 1670-0087 cells/uL ABSOLUTE LYMPHOCYTES 1184 172-9550 cells/uL ABSOLUTE MONOCYTES 390 200-950 cells/uL ABSOLUTE EOSINOPHILS 111 15-500 cells/uL ABSOLUTE BASOPHILS 72 0-200 cells/uL NEUTROPHILS 73.3 LYMPHOCYTES 17.9 MONOCYTES 6.0 EOSINOPHILS 1.7 BASOPHILS 1.1 PROTHROMBIN TIME-INR (8847) Reviewed date:09/09/2025 02:11:40 PM Interpretation: Performing Lab:[facility] [id number] [facility], [facility] HospitalQpddNO[address] Bert Reagan Notes/Report: NON-FASTING; NON-FASTING; NON-FASTING; NON-FASTING INR 2.8 Reference Range 0.9-1.1 Moderate-intensity Warfarin Therapy 2.0-3.0 Higher-intensity Warfarin Therapy 3.0-4.0 PT 27.8 9.0-11.5 sec For additional information, please refer to http://education.Blueleafo deviantART.com/faq/NGW698 (This link is being provided for informational/ educational purposes only.) HEMOGLOBIN A1c (496) Reviewed date:09/09/2025 02:11:40 PM Interpretation: Performing Lab:[facility] [id number], [place]lch[place] Bert Reagan Notes/Report: NON-FASTING; NON-FASTING; NON-FASTING; NON-FASTING HEMOGLOBIN A1c 5.8 <5.7 % For someone without known diabetes, a hemoglobin A1c value between 5.7% and 6.4% is consistent with prediabetes and should be confirmed with a follow-up test. For someone with known diabetes, a value <7% indicates that their diabetes is well controlled. A1c targets should be individualized based on duration of diabetes, age, comorbid conditions, and other considerations. This assay result is consistent with an increased risk of diabetes. Currently, no consensus exists regarding use of hemoglobin A1c for diagnosis of diabetes for children. REASON FOR VISIT med ck Medications Medication SIG (Take, Route, Frequency, Duration) Notes Start Date End Date Status B-12 2500 MCG 1 tab(s) sublingually once a day; Duration: 30 day(s) Active INSULIN SYRINGE 1CC DIRECTED; Duration: 30 *Please review for potential replacement for e-prescription and drug interaction check* 01/15/2014 Active Nitrostat 0.4 MG DISSOLVE ONE TABLET UNDER TONGUE EVERY 5 MINUTES FOR 3 DOSES NEEDED FOR sublingually every 5 minutes; Duration: 90 days Active Vitamin D (Ergocalciferol) 1.25 MG (99982 UT) TAKE 1 CAPSULE BY MOUTH ONCE A WEEK 28; Duration: 28 Active Gabapentin 300 mg TAKE 1 CAPSULE 3 TIMES EACH DAY; Duration: 30 07/30/2025 Active metFORMIN HCl 1000 MG TAKE 1 TABLET 1 TIME EACH DAY; Duration: 90 Active Loratadine 10 mg TAKE 1 TABLET 1 TIME EACH DAY; Duration: 90 Active Lantus SoloStar 100 UNIT/ML 25 units Subcutaneous once a day 07/05/2025 Active Clopidogrel Bisulfate 75 mg TAKE 1 TABLET 1 TIME EACH DAY; Duration: 90 Active Atorvastatin Calcium 80 mg TAKE 1 TABLET 1 TIME EACH DAY AT BEDTIME; Duration: 90 Active Carvedilol 25 MG 2 tab(s) orally 2 times a day; Duration: 90 days Active Warfarin Sodium 7.5 MG 1 tab(s) orally once a day but not on Sundays Active Tamsulosin HCl 0.4 MG 1 cap(s) orally once a day; Duration: 90 days Active Omeprazole 20 MG 1 cap(s) orally once a day; Duration: 90 days Active Entresto 97-103 MG 1 tablet Orally Twice a day; Duration: 90 days 01/29/2025 Active Allopurinol 300 MG 1 tab(s) orally once a day; Duration: 90 days Active Breztri Aerosphere 160 MCG-4.8 MCG-9 MCG/INH 2 PUFF(S) INHALED 2 TIMES A DAY; Duration: 30 DAYS *Please review and pick correct strength-formulati on from [employer] options. If intended option is not shown, discontinue and re-order from Quick Search* 01/25/2024 Active Verapamil HCl ER 180 MG 1 cap(s) orally once a day; Duration: 90 days 11/03/2021 Active Immunizations Vaccine Route Administration Date Status Comme nts Fluzone High Dose IM Intramuscular 09/03/2025 Administered Vital Signs Temperature 97.8 degrees Fahrenheit 09/03/20 25 Blood pressure systolic 126 mm Hg 09/03/20 25 Blood pressure diastolic 80 mm Hg 025 Heart Rate 72 /min 09/03/2025 Height 5 ft 9.5 in in 09/03/2025 Weight 182 lbs 09/03/2025 BMI 26.49 kg/m2 09/03/2025 Encounters Encounter Location Date Provider Diagnosis [address] [address] 09/03/2025 Humphrey Chavarria Chronic systolic hea rt failure I50.22 ; 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 Denies chest pain, SOB, palipations, or volume overload. Continue plan as directed 09/03/2025 Aortic valve replaced (ICD-10 - Z95.2) Increased warfarin dose at last visit. No bleeding concerns or side effects noted. Good S1/S2 sounds on auscultation Will repeat PT/INR today with goal of 2.5-3.5 09/03/2025 Type 2 diabetes mellitus with diabetic neuropathy, unspecified (ICD-10 - E11.40) Endorses compliance with regimen. No complaints today. No evidence of hypoglycemic events Continue with treatment plan Repeat A1C and CMP to be completed today 09/03/2025 Essential (primary) hypertension (ICD-10 - I10) Well controlled on current regimen. Denies any hypotensive episodes. Continue treatment plan as directed 09/03/2025 Systolic CHF with reduced left ventricular function, NYHA class 2 (ICD-10 - I50.20) See notes above 09/03/2025 Immunization(s) administered (ICD-10 - Z23) Influenza administered today Plan Of Treatment Treatment Notes Assessment Notes Chronic systolic heart failure No complaints during todays visit. Denies chest pain, SOB, palipations, or volume overload. Continue plan as directed Aortic valve replaced Increased warfarin dose at last visit. No bleeding concerns or side effects noted. Good S1/S2 sounds on auscultation Will repeat PT/INR today with goal of 2.5-3.5 Type 2 diabetes mellitus wit h diabetic neuropathy, unspecified Endorses compliance with regimen. No complaints today. No evidence of hypoglycemic events Continue with treatment plan Repeat A1C and CMP to be completed today Essential (primary) hypertension Well controlled on current regimen. Denies any hypotensive episodes. Continue treatment plan as directed Systolic CHF with reduced le ft ventricular function, NYHA class 2 See notes above Immunization(s) administered Influenza a dministered today Next Appt Details Follow Up: prn,3 Months, [place] son: Provider Name:Humphrey Chavarria, 12/03/2025 09:15:00 AM, [address], [address], Progress Notes * Nino REGALADO WDOB:1955 (69 yo M)Acc No.[id number]:09/03/2025 Progress Notes Patient: Nino PICKENS Provider: Debi Chavarria MD :1955 A ge:69 Y S ex:Male Date:09/03/2025 Address:[address] [place] [address] [place], Eulog[place], [place]-[id number] Subjective: * Chief Complaints: * 1 . Med ck. * HPI: g en: Patient with his , denies complaints. No problems with change in warfarin dose from last visit. No issues getting his medication. Good functional status, no falls, no recent chest pain. * Medical History: M I treated medically in 2000 with preserved LV [...] urinary retention and dorsal slit procedure at [facility] 08/15. * Hospitalization/Major Diagno stic Procedure: g allbladder surgery 07/21/15, bleeding from surgery 06/3015, [facility] x4 days 07/2023. * Family History: F [...] no. Occupation: disabled. * Medications: T aking B-12 2500 MCG Tablet 1 tab(s) sublingually once a day , Taking INSULIN SYRINGE 1CC DIRECTED , Notes to Pharmacist: *Please review for potential replacement for e-prescription and drug interaction check*, Taking Vitamin D (Ergocalciferol) 1.25 MG (50905 UT) Capsule TAKE 1 CAPSULE BY MOUTH ONCE A WEEK 28 , Taking Nitrostat 0.4 MG Tablet Sublingual DISSOLVE ONE TABLET UNDER TONGUE EVERY 5 MINUTES FOR 3 DOSES NEEDED FOR sublingually every 5 minutes , Taking Verapamil HCl ER 180 MG Capsule Extended Release 24 Hour 1 cap(s) orally once a day , Taking Breztri Aerosphere 160 MCG-4.8 MCG-9 MCG/INH AEROSOL 2 PUFF(S) INHALED 2 TIMES A DAY , Notes to Pharmacist: *Please review and pick correct strength-formulation from [employer] options. If intended option is not shown, discontinue and re-order from Quick Search*, Taking Allopurinol 300 MG Tablet 1 tab(s) orally once a day , Taking Entresto 97-103 MG Tablet 1 tablet Orally Twice a day , Taking Omeprazole 20 MG Capsule Delayed Release 1 cap(s) orally once a day , Taking Tamsulosin HCl 0.4 MG Capsule 1 cap(s) orally once a day , Taking Warfarin Sodium 7.5 MG Tablet 1 tab(s) orally once a day but not on Sundays , Taking Carvedilol 25 MG Tablet 2 tab(s) orally 2 times a day , Taking Lantus SoloStar 100 UNIT/ML Solution Pen-injector 25 units Subcutaneous once a day , Taking Loratadine 10 mg Tablet TAKE 1 TABLET 1 TIME EACH DAY , Taking metFORMIN HCl 1000 MG Tablet TAKE 1 TABLET 1 TIME EACH DAY , Taking Atorvastatin Calcium 80 mg Tablet TAKE 1 TABLET 1 TIME EACH DAY AT BEDTIME , Taking Clopidogrel Bisulfate 75 mg Tablet TAKE 1 TABLET 1 TIME EACH DAY , Taking Gabapentin 300 mg Capsule TAKE 1 CAPSULE 3 TIMES EACH DAY , Medication List reviewed and reconciled with the patient * Allergies: A spirin: upset stomach. Objective: * Vitals: N urse: dw, Pain: 0, Temp: 97.8, RR: 20, HR: 72, BP: 126/80, Ht: 5 ft 9.5 in, Wt: 182, BMI:26.49. * Examination: G eneral Examination: General P [...] . A ortic valve replaced - Z95.2 3 . T ype 2 diabetes mellitus with diabetic neuropathy, unspecified - E11.40 4 . E ssential (primary) hypertension - I10 5 . S ystolic CHF with reduced left ventricular function, NYHA class 2 - I50.20 6 . I mmunization(s) administered - Z23 Plan: * Treatment: 2. A ortic valve replaced L AB: COMPREHENSIVE METABOLIC PANEL (33068) Value Reference Range G LUCOSE 80 65-99 - mg/dL * U SHENG NITROGEN (BUN) 22 7-25 - mg/dL * C REATININE 1.32 H 0.70-1.28 - mg/dL * B UN/CREATININE RATIO 17 6-22 - (calc) * S ODIUM 145 135-146 - mmol/L * P OTASSIUM 5.0 3.5-5.3 - mmol/L * C HLORIDE 111 H 98-110 - mmol/L * C ARBON DIOXIDE 29 20-32 - mmol/L * C ALCIUM 8.5 L 8.6-10.3 - mg/dL * P ROTEIN, TOTAL 5.9 L 6.1-8.1 - g/dL * A LBUMIN 2.9 L 3.6-5.1 - g/dL * G LOBULIN 3.0 1.9-3.7 - g/dL (calc ) * A LBUMIN/GLOBULIN RATIO 1.0 1.0-2.5 - (calc) * B ILIRUBIN, TOTAL 0.5 0.2-1.2 - mg/dL * A LKALINE PHOSPHATASE 109 35-144 - U/L * A ST 20 10-35 - U/L * A LT 12 9-46 - U/L * E GFR 58 L > OR = 60 - mL/min/1 .73m2 * Sacaton Lysite R 09/06/2025 0 9:55:28 AM EST > lvm [facility] R 09/09/2025 02:09:43 PM EST >mailbox full [facility] R 09/09/2025 02:11:00 PM EST > pt notifiedThis lab was reviewed by Denis Gill on 09/09/2025 at 14:11 PM EST ?LAB: CBC (INCLUDES DIFF/PLT) (3599)* Value Reference Range W YOLANDE BLOOD CELL COUNT 6.5 3.8-10.8 - Thousan d/uL * R ED BLOOD CELL COUNT 4.20 4.20-5.80 - Million/ uL * H EMOGLOBIN 11.8 L 13.2-17.1 - g/dL * H EMATOCRIT 38.6 38.5-50.0 - % * M CV 91.9 80.0-100.0 - fL * M CH 28.1 27.0-33.0 - pg * M CHC 30.6 L 32.0-36.0 - g/dL * R DW 14.5 11.0-15.0 - % * P LATELET COUNT 217 140-400 - Thousand/u L * N EUTROPHILS 73.3 - % * A BSOLUTE NEUTROPHILS 4765 7161-2171 - cells/uL * L YMPHOCYTES 17.9 - % * A BSOLUTE LYMPHOCYTES 7658 713-6827 - cells/uL * M ONOCYTES 6.0 - % * A BSOLUTE MONOCYTES 390 200-950 - cells/uL * E OSINOPHILS 1.7 - % * A BSOLUTE EOSINOPHILS 111 15-500 - cells/uL * B ASOPHILS 1.1 - % * A BSOLUTE BASOPHILS 72 0-200 - cells/uL * M PV 10.5 7.5-12.5 - fL * Bridget Denis R 09/06/2025 0 9:55:28 AM EST > lvm [facility] 09/09/2025 02:09:43 PM EST > na [facility] 09/09/2025 02:11:00 PM EST > pt Amanuels lab was reviewed by Denis Gill on 09/09/2025 at 14:11 PM EST ?LAB: PROTHROMBIN TIME-INR (8847)* Value Reference Range P T 27.8 H 9.0-11.5 - sec * I NR 2.8 H - * Bridget [facility] 09/06/2025 0 9:55:28 AM EST > lvm White, Denis R 09/09/2025 02:09:43 PM EST > na Denis Gill R 09/09/2025 02:11:00 PM EST > pt Amanuels lab was reviewed by Denis Gill on 09/09/2025 at 14:11 PM EST ?LAB: HEMOGLOBIN A1c (496)* Value Reference Range H EMOGLOBIN A1c 5.8 H <5.7 - % * Denis Gill R 09/06/2025 0 9:55:28 AM EST > lvm Denis Gill R 09/09/2025 02:09:43 PM EST > na Denis Gill R 09/09/2025 02:11:00 PM EST > pt pedro luisThis lab was reviewed by Denis Gill on 09/09/2025 at 14:11 PM EST Notes: Increased warfarin dose at last visit. No bleeding concerns or side effects noted. Good S1/S2 sounds on auscultation Will repeat PT/INR today with goal of 2.5-3.5??3.?Type 2 diabetes mellitus with diabetic neuropathy, unspecified?LAB: COMPREHENSIVE METABOLIC PANEL (72926)* Value Reference Range G LUCOSE 80 65-99 - mg/dL * U SHENG NITROGEN (BUN) 22 7-25 - mg/dL * C REATININE 1.32 H 0.70-1.28 - mg/dL * B UN/CREATININE RATIO 17 6-22 - (calc) * S ODIUM 145 135-146 - mmol/L * P OTASSIUM 5.0 3.5-5.3 - mmol/L * C HLORIDE 111 H 98-110 - mmol/L * C ARBON DIOXIDE 29 20-32 - mmol/L * C ALCIUM 8.5 L 8.6-10.3 - mg/dL * P ROTEIN, TOTAL 5.9 L 6.1-8.1 - g/dL * A LBUMIN 2.9 L 3.6-5.1 - g/dL * G LOBULIN 3.0 1.9-3.7 - g/dL (calc ) * A LBUMIN/GLOBULIN RATIO 1.0 1.0-2.5 - (calc) * B ILIRUBIN, TOTAL 0.5 0.2-1.2 - mg/dL * A LKALINE PHOSPHATASE 109 35-144 - U/L * A ST 20 10-35 - U/L * A LT 12 9-46 - U/L * E GFR 58 L > OR = 60 - mL/min/1 .73m2 * Denis Gill R 09/06/2025 0 9:55:28 AM EST > lvm Bridget Lysite R 09/09/2025 02:09:43 PM EST >mailbox full Bridget Lysite R 09/09/2025 02:11:00 PM EST > pt notifiedThis lab was reviewed by Denis Gill on 09/09/2025 at 14:11 PM EST ?LAB: CBC (INCLUDES DIFF/PLT) (7057)* Value Reference Range W YOLANDE BLOOD CELL COUNT 6.5 3.8-10.8 - Thousan d/uL * R ED BLOOD CELL COUNT 4.20 4.20-5.80 - Million/ uL * H EMOGLOBIN 11.8 L 13.2-17.1 - g/dL * H EMATOCRIT 38.6 38.5-50.0 - % * M CV 91.9 80.0-100.0 - fL * M CH 28.1 27.0-33.0 - pg * M CHC 30.6 L 32.0-36.0 - g/dL * R DW 14.5 11.0-15.0 - % * P LATELET COUNT 217 140-400 - Thousand/u L * N EUTROPHILS 73.3 - % * A BSOLUTE NEUTROPHILS 4765 3541-3656 - cells/uL * L YMPHOCYTES 17.9 - % * A BSOLUTE LYMPHOCYTES 5326 296-5338 - cells/uL * M ONOCYTES 6.0 - % * A BSOLUTE MONOCYTES 390 200-950 - cells/uL * E OSINOPHILS 1.7 - % * A BSOLUTE EOSINOPHILS 111 15-500 - cells/uL * B ASOPHILS 1.1 - % * A BSOLUTE BASOPHILS 72 0-200 - cells/uL * M PV 10.5 7.5-12.5 - fL * Bridget Denis R 09/06/2025 0 9:55:28 AM EST > lvm Bridget Lysite 09/09/2025 02:09:43 PM EST > na Denis Gill 09/09/2025 02:11:00 PM EST > pt notifiedChrissys lab was reviewed by Denis Gill on 09/09/2025 at 14:11 PM EST ?LAB: PROTHROMBIN TIME-INR (8847)* Value Reference Range P T 27.8 H 9.0-11.5 - sec * I NR 2.8 H - * Denis Gill 09/06/2025 0 9:55:28 AM EST > lvm Denis Gill 09/09/2025 02:09:43 PM EST > [facility] 02:11:00 PM EST > pt notifiedThis lab was reviewed by Denis Gill on 09/09/2025 at 14:11 PM EST ?LAB: HEMOGLOBIN A1c (496)* Value Reference Range H EMOGLOBIN A1c 5.8 H <5.7 - % * Denis Gill 09/06/2025 0 9:55:28 AM EST > lvm Denis Gill 09/09/2025 02:09:43 PM EST > na [facility] 09/09/2025 02:11:00 PM EST > pt notifiedThis lab was reviewed by Denis Gill on 09/09/2025 at 14:11 PM EST Notes: Endorses compliance with regimen. No complaints today. No evidence of hypoglycemic events Continue with treatment plan Repeat A1C and CMP to be completed today??4.?Essential (primary) hypertension? Notes: Well controlled on current regimen. Denies any hypotensive episodes. Continue treatment plan as directed??5.?Systolic CHF with reduced left ventricular function, NYHA class 2? Notes: See notes above??6.?Immunization(s) administered? Notes: Influenza administered today?? * Immunizations: Fluzone High Dose : 0.7 mL (Dose No:1) (Route: Intramuscular) given by HEIDY Moody on Left Deltoid (Immunization(s) administered) * Procedure Codes: 9 0662 Influenza High Dose Vaccine >65 Years Old, Units: 1.40 , G0008 ADMINISTRATION-FLU VACCINE MEDICARE ONLY, G2211 Complex e/m visit add on * Follow Up: p rn,3 Months * * Sign off status: Completed true * Provider: Debi Chavarria MD Date: 11/03/2024 Generated for Sharon gerard/Padmini/eTransmitting on: 11/27/2024 04:26 AM EST History and Physical Notes * HPI (History of Present Illness) Category Sub-Category Detail Notes Category Not es gen Patient with his , denies complaints. No problems with change in warfarin dose from last visit. No issues getting his medication. Good functional status, no falls, no recent chest pain. Examination Category Sub-Category Detail Notes Category Not [...]
[2025-09-26] VITALS (7 sets, daily range): BP systolic 107–162; BP diastolic 59–91; PULSE 74–77; RESP 15–20; TEMP 36.5; O2SAT 92–95; BMI 26.3
--- NOTE | 2025-09-26 04:23 | HMH.EDGENADL ---
Discharge Plan Disposition Patient Disposition: Home, Self-Care Prescriptions Prescriptions: No Action allopurinol 300 mg tablet 300 mg PO DAILY loratadine [Claritin] 10 mg tablet 10 mg PO DAILY fluticasone propionate [Flonase Allergy Relief] 50 mcg/actuation spray,suspension 50 mcg INTRANASAL DAILYP PRN (Reason: ALLERGIES) gabapentin 300 mg capsule 300 mg PO TID insulin aspart U-100 [Novolog FlexPen U-100 Insulin] 100 unit/mL insulin pen 10 unit SUB-Q QAM docusate sodium 250 mg capsule 250 mg PO DAILYP PRN (Reason: Constipation) tamsulosin [Flomax] 0.4 mg capsule,extended release 24hr 0.4 mg PO HS potassium chloride [Klor-Con 10] 10 mEq tablet extended release 10 meq PO BID Humulin 70/30 U-100 Insulin 100 unit/mL (70-30) suspension 20 unit SQ QAM insulin degludec [Tresiba FlexTouch U-200] 200 unit/mL (3 mL) insulin pen 25 unit SUB-Q HS metformin 1,000 mg tablet 1,000 mg PO BID carvedilol 25 mg tablet 50 mg PO BID Qty: 360 3RF warfarin 7.5 mg Tablet 3.75 mg PO SUTUTHSA warfarin 7.5 mg Tablet 7.5 mg PO MOWEFR atorvastatin 80 mg tablet 80 mg PO HS hydrochlorothiazide 50 mg tablet 50 mg PO DAILY Rx Instructions: TAKE 1 TABLET BY MOUTH DAILY isosorbide mononitrate 30 mg tablet extended release 24 hr 30 mg PO DAILY Rx Instructions: TAKE 1 TABLET BY MOUTH DAILY clopidogrel 75 mg tablet 75 mg PO DAILY Rx Instructions: TAKE 1 TABLET BY MOUTH DAILY FOR BLOOD THINNER omeprazole 40 mg capsule,delayed release(DR/EC) 20 mg PO DAILY losartan 100 mg tablet 100 mg PO DAILY Rx Instructions: TAKE 1 TABLET BY MOUTH DAILY FOR BLOOD PRESSURE furosemide 20 mg tablet 20 mg PO DAILY Qty: 2 0RF Referrals Follow up/Referrals: Humphrey Chavarria MD [Primary Care Provider, Internal Medicine] - See instructions Activity Restrictions/Add. Instructions Additional Instructions/Restrictions: Please follow-up with your primary care provider. Please return to the emergency department if you develop any new or worsening symptoms or become concerned for your health. Clinical Impressions Clinical Impression: Anxiety, Hypoglycemia Print Language Print Language: Tajik Discharge ED Provider: Aleksandar Patel Adult HPI General Chief complaint: Anxiety Stated complaint: anxiety, general unease, weakness Time Seen by Provider: 09/26/25 04:22 History of Present Illness HPI narrative: 69 history of aortic and mitral valve replacements, diabetes heart failure, hypertension presents for anxiety. He reports over the last couple of weeks he has been intermittently having what feels like panic attacks. They last for less than 5 minutes. He reports that he feels anxious when it happens but does not have chest pain or shortness of breath or dizziness or other symptoms. He reports that they have happened before but not this bad. Tonight when he tried to go to sleep he had another episode and so presents to the ER. He reports that he currently feels well. After extensive questioning, he does report that he has had some diarrhea but denies any other symptoms. Related Data Home Medications ?Medication ?Instructions ?Recorded ?Confirmed allopurinol 300 mg tablet 300 mg PO DAILY gout 11/28/17 07/26/23 docusate sodium 250 mg capsule 250 mg PO DAILYP PRN Constipation 11/28/17 07/26/23 fluticasone propionate 50 50 mcg intranasal DAILYP PRN 11/28/17 07/26/23 mcg/actuation nasal ALLERGIES spray,suspension (Flonase Allergy Relief) gabapentin 300 mg capsule 300 mg PO TID NEUROPATHY 11/28/17 07/26/23 insulin aspart U-100 100 unit/mL 10 unit SUB-Q QAM Diabetes 11/28/17 07/26/23 (3 mL) subcutaneous pen (Novolog FlexPen U-100 Insulin aspart) loratadine 10 mg tablet (Claritin) 10 mg PO DAILY Allergies 11/28/17 07/26/23 tamsulosin 0.4 mg capsule (Flomax) 0.4 mg PO HS bladder 11/28/17 07/26/23 insulin degludec 200 unit/mL (3 25 unit SUB-Q HS Diabetes 02/07/18 07/26/23 mL) subcutaneous pen (Tresiba FlexTouch U-200 insulin) potassium chloride 10 mEq 10 meq PO BID Supplement 01/03/19 07/26/23 tablet,extended release (Klor-Con) insulin human U-100 NPH-regulr 20 unit SQ QAM Diabetes 05/13/20 07/26/23 70-30 mix 100 unit/mL subcutaneous susp (Humulin 70/30 U-100 Insulin) metformin 1,000 mg tablet 1,000 mg PO BID Diabetes 02/23/21 07/26/23 atorvastatin 80 mg tablet 80 mg PO HS Cholesterol 07/26/23 07/26/23 clopidogrel 75 mg tablet 75 mg PO DAILY Blood Thinner 07/26/23 07/26/23 hydrochlorothiazide 50 mg tablet 50 mg PO DAILY Blood pressure/fluid 07/26/23 07/26/23 isosorbide mononitrate 30 mg 30 mg PO DAILY Blood pressure 07/26/23 07/26/23 tablet,extended release 24 hr losartan 100 mg tablet 100 mg PO DAILY Blood pressure 07/26/23 07/26/23 omeprazole 40 mg capsule,delayed 20 mg PO DAILY acid reflux 07/26/23 07/26/23 release warfarin 7.5 mg tablet 3.75 mg PO SUTUTHSA Blood Thinner 07/26/23 07/26/23 warfarin 7.5 mg tablet 7.5 mg PO MOWEFR Blood Thinner 07/26/23 07/26/23 Previous Rx's ?Medication ?Instructions ?Recorded carvedilol 25 mg tablet 50 mg (2 x 25 mg) PO BID Heartburn 02/23/21 #360 tabs furosemide 20 mg tablet 20 mg PO DAILY #2 tabs 01/02/25 Allergies Allergy/AdvReac Type Severity Reaction Status Date / Time aspirin (ASPIRIN) Allergy Unknown Abdominal Verified 09/26/25 04:45 Pain [facility] Disclaimer: The information contained in this section may have been updated after the patient was seen, as this information can be updated by other users. Medical History (Updated 09/26/25 @ 06:39 by Aleksandar Patel MD) Abnormal EKG Dyspnea Surgical History (Updated 07/04/19 @ 10:28 by Kati Aguilar RN) H/O mitral valve replacement with mechanical valve Hx of aortic valve replacement, mechanical Social History Smoking Status: Former smoker tobacco type: cigarettes alcohol intake: never substance use type: denies use current occupational status: other Travel in the last 8 weeks?: Inside the [place] caffeine: Yes Have you lived/traveled outside [place] in past 30 days?: No Contact w/someone who lives/traveled outside [place] past 30 days?: No Exposure to someone with infectious disease in past 14 days?: No Do you have a fever (greater than 100.4 F or 38 C)?: No Have you tested positive for COVID-19?: No Exposed to someone with COVID-19 in past 14 days?: No Do you have a sore throat?: No Do you have a cough?: No Do you have any weakness?: Yes Do you have any diarrhea?: No Are you experiencing any unusual bleeding?: No Do you have any muscle aches/pain?: No Do you have any abdominal pain?: No Are you experiencing loss of taste or smell?: No Other Medical History Have you received the Flu Vaccine for this season: No Have you received the Pneumonia Vaccine: No ROS Obtained: Yes All systems reviewed & no additional complaints except as documented Physical Exam General General appearance: alert and in no apparent distress Head Head exam: atraumatic and normocephalic Eye Eye exam: Present normal appearance, PERRL and EOMI ENT ENT exam: Present normal oropharynx and normal external ear exam Neck Neck exam: Present normal inspection and full ROM Chest Chest inspection: Present normal inspection and symmetric chest wall rise; Absent tenderness Respiratory Respiratory exam: Present normal lung sounds bilaterally; Absent respiratory distress Cardiovascular Cardiovascular exam: Present regular rate and normal rhythm Abdominal Exam Abdominal exam: Present soft; Absent distention, tenderness or guarding Extremities Exam Extremities exam: Present normal inspection; Absent edema or joint swelling Back Exam Back exam: Present normal inspection; Absent tenderness Neurological Exam Neurological exam: Present alert and oriented X3; Absent motor sensory deficit Psychiatric Psychiatric exam: Present normal affect and normal mood Skin Skin exam: Present warm, dry and normal color Lymphatic Lymphatic Findings: no adenopathy Medical Decision Making Medical Records Medical records reviewed: Yes I reviewed the patient's medical records. Screening: Per USPSTF and CDC recommendations, given the prevalence of disease in our region, it is our hospital?s policy to screen for HIV and viral Hepatitis for all patients aged 18 and over and those with ongoing risk factors. Juan Carlos Inquiry Pt receiving controlled substance: No Juan Carlos was queried for this patient: No Vital Signs: 09/26/25 04:38 Temperature 97.7 F Temperature Source Oral Pulse Rate [Right] 76 Respiratory Rate 16 Blood Pressure [Right Arm] 141/91 H Blood Pressure Mean [Right Arm] 107 Blood Pressure Source [Right Arm] Automatic Cuff Blood Pressure Position [Right Arm] Sitting 02 Sat by Pulse Oximetry 92 L Oxygen Delivery Method Room Air Lab Data Lab results reviewed: Yes I reviewed the patient's lab results. Lab Results 09/26/25 04:31: WBC 8.5, RBC 4.00 L, Hgb 11.2 L, Hct 36.6 L, MCV 91.5, MCH 28.0, MCHC 30.6 L, RDW 15.6, Plt Count 216, MPV 9.9, Neut % (Auto) 78.7, Lymph % (Auto) 13.4, [place] % (Auto) 5.7, Eos % (Auto) 1.2, Baso % (Auto) 0.8, Neut # (Auto) 6.7, Lymph # (Auto) 1.1, [place] # (Auto) 0.5, Eos # (Auto) 0.1, Baso # (Auto) 0.1, PT 37.2 H, INR 3.69 H, Sodium 146 H, Potassium 3.6, Chloride 108 H, Carbon Dioxide 31 H, Anion Gap 10.6, BUN 17, Creatinine 1.40 H, Estimated Creat Clear 59, Estimated GFR 50 L, Est GFR ( Amer) 60, Glucose 47 L*, Calcium 8.4, Magnesium 1.7, Total Bilirubin 0.9, AST 35, ALT 20, Alkaline Phosphatase 108, Troponin I < 0.01, Total Protein 6.3, Albumin 3.0 L, Globulin 3.3 H, Albumin/Globulin Ratio 0.9 L, Lipase 63, TSH 4.48, Thyroxine (T4) 12.1 H 09/26/25 04:31 09/26/25 04:31 Orders (Tests/Meds): ORDERS Category Date Time Status CXR --portable [XR chest portable] Stat Exams 09/26/25 04:33 Completed CBC w/Auto Diff [Complete Blood Count Auto Diff] Stat Lab 09/26/25 04:31 Completed CMP [Comprehensive Metabolic Panel] Stat Lab 09/26/25 04:31 Completed INR [Prothrombin Time INR] Stat Lab 09/26/25 04:31 Completed Lipase Stat Lab 09/26/25 04:31 Completed Magnesium Stat Lab 09/26/25 04:31 Completed T4 (Thyroxine) Stat Lab 09/26/25 04:31 Completed TSH [Thyroid Stimulating Hormone] Stat Lab 09/26/25 04:31 Completed Troponin I Q3H Lab 09/26/25 04:31 Completed Troponin I Q3H Lab 09/26/25 07:45 Ordered ECG Data Tracing #1: I reviewed this ECG and interpreted as documented below: Sinus rhythm with frequent PVCs, intraventricular conduction delay noted, no obvious ST elevation ECG initial impression date: 09/26/25 ECG initial impression time: 04:32 HEART Score History (anamnesis): Slightly suspicious ECG: Non-specific disturbance Age: >65 years Risk factors: Atherosclerosis history Troponin: </= normal limit HEART Score: 5 Medical Decision Narrative: 69-year-old male with history of mitral and aortic valve replacements, hypertension, diabetes presents for intermittent episodes of anxiety over the last couple of weeks, without chest pain shortness of breath or other symptoms.. History was obtained via interactive discussion with patient, family, chart review. On arrival, patient is [afebrile, hemodynamically stable, satting appropriately, alert, oriented x4, GCS 15], moving all extremities spontaneously. Full physical exam performed and significant for no significant physical exam abnormalities Differential includes but is not limited to psychiatric condition, hyper/hypoglycemia, arrhythmia, electrolyte derangement Workup initiated including chest x-ray EKG basic labs troponin. On re-evaluation, patient [remains afebrile, HD stable.] Laboratory workup independently interpreted by me and significant for hypoglycemia with blood sugar 47. Labs otherwise unremarkable.. Imaging independently interpreted by me and significant for stable findings, no acute opacity. See radiology read for full review of final results. Patient was given oral glucose. His glucose was checked again and was 119, on further recheck was 167. On further recheck remained stable. He has intermittent episodes of anxiety may be related to hypoglycemia. He has not been checking his sugar at home. He was encouraged to monitor his sugar at home and follow-up with PCP for further assessment. Return precautions given. Procedures Risk/Benefits of Procedure(s) Were Explained: Yes Critical Care Critical Care Time Critical Care Time: No
--- OUTSIDE RECORDS SUMMARY | 2025-09-26 04:26 | XMS_ITS | Patient Health Record ---
Author Organization [facility] [place] Address [address] [place], [place] [address] Care Team Providers Care Circuit Judge Name Role Phone Humphrey Eli Primary Care Provider Migration, Provider Unavailable Unavailable Allergies Allergen (clinical drug ingredient) Drug/Non Drug Allergy documented on EMR Reaction Allergy Type Onset Date Status aspirin Aspirin upset stomach Drug Allergy Act skip Results Component Value Reference Range Notes COMPREHENSIVE METABOLIC PANE L (95115) Reviewed date:06/01/2025 08:41:16 AM Interpretation: Performing Lab:CB, [facility] [address], [facility] HealthOpgtSL[address] Bert Reagan Notes/Report: FASTING: YES FASTING:YES NON-FASTING; NON-FASTING; NON-FASTING; NON-FASTING; NON-FAST GLUCOSE 101 65-99 mg/dL Fasting reference interval For someone without known diabetes, a glucose value between 100 and 125 mg/dL is consistent with prediabetes and should be confirmed with a follow-up test. UREA NITROGEN (BUN) 33 7-25 mg/dL CREATININE 1.58 0.70-1.28 mg/dL EGFR 46 > OR = 60 mL/min/1.73m2 BUN/CREATININE RATIO 21 6-22 (calc) SODIUM 142 135-146 mmol/L POTASSIUM 4.6 3.5-5.3 mmol/L CHLORIDE 110 98-110 mmol/L CARBON DIOXIDE 28 20-32 mmol/L CALCIUM 8.3 8.6-10.3 mg/dL PROTEIN, TOTAL 5.9 6.1-8.1 g/dL ALBUMIN 2.9 3.6-5.1 g/dL GLOBULIN 3.0 1.9-3.7 g/dL (calc) ALBUMIN/GLOBULIN RATIO 1.0 1.0-2.5 (calc) BILIRUBIN, TOTAL 0.6 0.2-1.2 mg/dL ALKALINE PHOSPHATASE 94 35-144 U/L AST 17 10-35 U/L ALT 8 9-46 U/L LIPID PANEL, STANDARD (7600) Reviewed date:06/01/2025 08:41:16 AM Interpretation: Performing Lab:[facility]U [address] [employer], Handseeing InformationZbmmZB[address] Bert Reagan Notes/Report: NON-FASTING; NON-FASTING; NON-FASTING; NON-FASTING; NON-FAST FASTING:YES FASTING: YES CHOLESTEROL, TOTAL 142 <200 mg/dL HDL CHOLESTEROL 39 > OR = 40 mg/dL TRIGLYCERIDES 131 <150 mg/dL LDL-CHOLESTEROL 80 Reference range: <100 Desirable range <100 mg/dL for primary prevention; <70 mg/dL for patients with CHD or diabetic patients with > or = 2 CHD risk factors. LDL-C is now calculated using the Alan-Chirinos calculation, which is a validated novel method providing better accuracy than the Friedewald equation in the estimation of LDL-C. Alan SS et al. RADHA. 2013;310(19): 0128-8623 (http://Neurelis.Prehash Ltd/faq/NWQ330) CHOL/HDLC RATIO 3.6 <5.0 (calc) NON HDL CHOLESTEROL 103 <130 mg/dL (calc) For patients with diabetes plus 1 major ASCVD risk factor, treating to a non-HDL-C goal of <100 mg/dL (LDL-C of <70 mg/dL) is considered a therapeutic option. B TYPE NATRIURETIC PEPTIDE ( BNP) (05679) Reviewed date:04/03/2025 05:05:41 PM Interpretation: Performing Lab:[facility] [address] [employer], Handseeing InformationNwgjIV[address] Bert Reagan Notes/Report: NON-FASTING B TYPE NATRIURETIC PEPTIDE (BNP) 1218 <100 pg/mL BNP levels increase with age in the general population with the highest values seen in individuals greater than 75 years of age. Reference: J. Am. Dahlia. Cardiol. 2002; 40:976-982. PROTHROMBIN TIME-INR (8847) Reviewed date:04/03/2025 02:10:10 PM Interpretation: Performing Lab:[facility] [address], [place] ObregonEkhuGO[address] Bert Reagan Notes/Report: NON-FASTING; NON-FASTING INR 2.7 Reference Range 0.9-1.1 Moderate-intensity Warfarin Therapy 2.0-3.0 Higher-intensity Warfarin Therapy 3.0-4.0 PT 27.1 9.0-11.5 sec For additional information, please refer to http://Neurelis.28msec/faq/PSW762 (This link is being provided for informational/ educational purposes only.) BASIC METABOLIC PANEL (70573 ) Reviewed date:04/03/2025 02:10:09 PM Interpretation: Performing Lab:[facility] [address], [place] RenVmkxYW[address] Bert Reagan Notes/Report: NON-FASTING; NON-FASTING GLUCOSE 57 [...] 8.4 8.6-10.3 mg/dL PROTHROMBIN TIME-INR (8847) Reviewed date:03/06/2025 11:15:46 AM Interpretation: Performing Lab:[facility] [address], Handseeing InformationLdibJH[address] Bert Reagan Notes/Report: NON-FASTING; NON-FASTING INR 4.2 Reference Range 0.9-1.1 Moderate-intensity Warfarin Therapy 2.0-3.0 Higher-intensity Warfarin Therapy 3.0-4.0 PT 41.5 9.0-11.5 sec For additional information, please refer to http://Neurelis.28msec/faq/XII909 (This link is being provided for informational/ educational purposes only.) BASIC METABOLIC PANEL (82657 ) Reviewed date:03/06/2025 11:15:46 AM Interpretation: Performing Lab:ISATU, [facility] [address], [place] RenCvetGD[address] Bert Rolf Reagan Notes/Report: NON-FASTING; NON-FASTING GLUCOSE 146 65-99 [...] 29 20-32 mmol/L CALCIUM 8.3 8.6-10.3 mg/dL ECHOCARDIOGRAM Reviewed date:01/23/2025 08:42:03 AM Interpretation: Performing Lab: Notes/Report: [address] [place] [address] Name: NINO REGALADO Exam Date: 01/16/2025 : 1955 Age 69 years Gender: M Physician: HUMPHREY ELI Facility: [facility] Facility HSV: Outpatient Exam: ECHOCARDIOGRAM Conclusions: [...] Grad:4.24 (<=3) mmHg Report for NINO REGALADO [id number] on 01/16/25 Dictated By: ADELA FUENTES Transcribed By: BERONICA HUFFMAN Transcribed On: 01/23/2025 7:52 AM Electronically signed by: ADELA FUENTES 01/23/2025 Thank you for referring NINO REGALADO to [facility]. Legally authenticated by ALFREDO CHAPMAN MD 2025-01-23 07:58:45 B TYPE NATRIURETIC PEPTIDE ( BNP) (94300) Reviewed date:11/22/2024 12:29:43 PM Interpretation: Performing Lab:[facility] [address] [facility] HealthVizjPP[address] Bert Reagan Notes/Report: NON-FASTING; NON-FASTING; NON-FASTING; NON-FASTING; NON-FAST B TYPE NATRIURETIC PEPTIDE (BNP) 549 <100 pg/mL BNP levels increase with age in the general population with the highest values seen in individuals greater than 75 years of age. Reference: J. Am. Dahlia. Cardiol. 2002; 40:976-982. HEMOGLOBIN A1c (496) Reviewed date:11/22/2024 12:29:42 PM Interpretation: Performing Lab:[facility] [address] Lan[facility] [place] [facility] HealthYgnjUO[address] Bert Reagan Notes/Report: NON-FASTING; NON-FASTING; NON-FASTING; NON-FASTING; [...] diabetes for children. PROTHROMBIN TIME-INR (8847) Reviewed date:11/22/2024 12:29:42 PM Interpretation: Performing Lab:[facility] [address], XetawaveUopsDJ[address] Bert Reagan Notes/Report: NON-FASTING; NON-FASTING; NON-FASTING; NON-FASTING; NON-FAST INR 1.6 Reference Range 0.9-1.1 Moderate-intensity Warfarin Therapy 2.0-3.0 Higher-intensity Warfarin Therapy 3.0-4.0 PT 16.5 9.0-11.5 sec For additional information, please refer to http://education.28msec/faq/CMK204 (This link is being provided for informational/ educational purposes only.) CBC (INCLUDES DIFF/PLT) (639 9) Reviewed date:11/22/2024 12:29:42 PM Interpretation: Performing Lab:[facility] [address], XetawaveCdqhMW[address] Bert Reagan Notes/Report: NON-FASTING; NON-FASTING; NON-FASTING; NON-FASTING; [...] MPV 10.1 7.5-12.5 fL ABSOLUTE NEUTROPHILS 5941 2363-5016 cells/uL ABSOLUTE LYMPHOCYTES 4001 676-1502 cells/uL ABSOLUTE MONOCYTES 490 200-950 cells/uL ABSOLUTE EOSINOPHILS 79 15-500 cells/uL ABSOLUTE BASOPHILS 71 0-200 cells/uL NEUTROPHILS 75.2 LYMPHOCYTES 16.7 MONOCYTES 6.2 EOSINOPHILS 1.0 BASOPHILS 0.9 MAGNESIUM (622) Reviewed date:11/22/2024 12:29:42 PM Interpretation: Performing Lab:ISATU, [facility], Handseeing InformationSladZK[address] Bert Reagan Notes/Report: NON-FASTING; NON-FASTING; NON-FASTING; NON-FASTING; NON-FAST MAGNESIUM 1.6 1.5-2.5 mg/dL COMPREHENSIVE METABOLIC PANE L (50836) Reviewed date:11/22/2024 12:29:42 PM Interpretation: Performing Lab:[facility] [address], Handseeing InformationIsjvOB[address] Bert Reagan Notes/Report: NON-FASTING; NON-FASTING; NON-FASTING; NON-FASTING; [...] 20 10-35 U/L ALT 10 9-46 U/L LIPID PANEL, STANDARD (7600) Reviewed date:11/22/2024 12:29:42 PM Interpretation: Performing Lab:[facility] [address] [facility] HospitalQujzUM[address] Bert Reagan Notes/Report: NON-FASTING; NON-FASTING; NON-FASTING; NON-FASTING; NON-FAST CHOLESTEROL, TOTAL 113 <200 mg/dL HDL CHOLESTEROL 36 > OR = 40 mg/dL TRIGLYCERIDES 110 <150 mg/dL LDL-CHOLESTEROL 57 Reference range: <100 Desirable range <100 mg/dL for primary prevention; <70 mg/dL for patients with CHD or diabetic patients with > or = 2 CHD risk factors. LDL-C is now calculated using the Alan-Candis calculation, which is a validated novel method providing better accuracy than the Friedewald equation in the estimation of LDL-C. Alan GOULD et al. RADHA. 2013;310(19): 9293-5902 (http://education.Prehash Ltd/faq/VSJ193) CHOL/HDLC RATIO 3.1 <5.0 (calc) NON HDL CHOLESTEROL 77 <130 mg/dL (calc) For patients with diabetes plus 1 major ASCVD risk factor, treating to a non-HDL-C goal of <100 mg/dL (LDL-C of <70 mg/dL) is considered a therapeutic option. Microalbumin (In-House) Reviewed date:11/20/2024 04:08:24 PM Interpretation: Performing Lab: Notes/Report: ALB 150mg CRE 50mg A:C >300mg HEMOGLOBIN A1c (496) Reviewed date:06/01/2025 08:41:16 AM Interpretation: Performing Lab:IS[facility]U [facility] [address] [facility], Bet[facility] HospitalIgnhVE[address] Bert Reagan Notes/Report: NON-FASTING; NON-FASTING; NON-FASTING; NON-FASTING; NON-FAST FASTING:YES FASTING: YES HEMOGLOBIN A1c 5.8 <5.7 % For someone [...] diabetes for children. PROTHROMBIN TIME-INR (8847) Reviewed date:06/01/2025 08:41:16 AM Interpretation: Performing Lab:[facility] [address], [place] ObregonDxfbDC[address] Bert Reagan Notes/Report: NON-FASTING; NON-FASTING; NON-FASTING; NON-FASTING; NON-FAST FASTING:YES FASTING: YES INR 4.2 Reference Range 0.9-1.1 Moderate-intensity Warfarin Therapy 2.0-3.0 Higher-intensity Warfarin Therapy 3.0-4.0 PT 41.1 9.0-11.5 sec For additional information, please refer to http://Neurelis.28msec/faq/VMY228 (This link is being provided for informational/ educational purposes only.) CBC (INCLUDES DIFF/PLT) (639 9) Reviewed date:06/01/2025 08:41:16 AM Interpretation: Performing Lab:[facility] [address] [employer], [place] ObregonPnyfGD[address] Bert Reagan Notes/Report: NON-FASTING; NON-FASTING; NON-FASTING; NON-FASTING; NON-FAST FASTING:YES FASTING: YES WHITE BLOOD CELL COUNT 6.4 3.8-10.8 Thousand/ uL RED BLOOD CELL COUNT 4.32 4.20-5.80 Million/uL HEMOGLOBIN 12.1 13.2-17.1 g/dL HEMATOCRIT 40.2 38.5-50.0 % MCV 93.1 80.0-100.0 fL MCH 28.0 27.0-33.0 pg MCHC 30.1 32.0-36.0 g/dL For adults, a slight decrease in the calculated MCHC value (in the range of 30 to 32 g/dL) is most likely not clinically significant; however, it should be interpreted with caution in correlation with other red cell parameters and the patient's clinical condition. RDW 14.4 11.0-15.0 % PLATELET COUNT 199 140-400 Thousand/uL MPV 9.4 7.5-12.5 fL ABSOLUTE NEUTROPHILS 4467 9645-2652 cells/uL ABSOLUTE LYMPHOCYTES 7994 224-9850 cells/uL ABSOLUTE MONOCYTES 442 200-950 cells/uL ABSOLUTE EOSINOPHILS 154 15-500 cells/uL ABSOLUTE BASOPHILS 58 0-200 cells/uL NEUTROPHILS 69.8 LYMPHOCYTES 20.0 MONOCYTES 6.9 EOSINOPHILS 2.4 BASOPHILS 0.9 COMPREHENSIVE METABOLIC PANE L (88493) Reviewed date:09/09/2025 02:11:39 PM Interpretation: Performing Lab:ISATU, [facility]-[address]Stock[address], [facility] HealthFuprLJ[address] Bert Reagan Notes/Report: NON-FASTING; NON-FASTING; NON-FASTING; NON-FASTING [...] 9) Reviewed date:09/09/2025 02:11:39 PM Interpretation: Performing Lab:IASTU, [address] [employer], [facility] HealthNeosWP[address] Bert Reagan Notes/Report: NON-FASTING; NON-FASTING; NON-FASTING; NON-FASTING WHITE [...] MPV 10.5 7.5-12.5 fL ABSOLUTE NEUTROPHILS 4765 7773-7520 cells/uL ABSOLUTE LYMPHOCYTES 9639 541-4010 cells/uL ABSOLUTE MONOCYTES 390 200-950 cells/uL ABSOLUTE EOSINOPHILS 111 15-500 cells/uL ABSOLUTE BASOPHILS 72 0-200 cells/uL NEUTROPHILS 73.3 LYMPHOCYTES 17.9 MONOCYTES 6.0 EOSINOPHILS 1.7 BASOPHILS 1.1 PROTHROMBIN TIME-INR (8847) Reviewed date:09/09/2025 02:11:40 PM Interpretation: Performing Lab:ISATU [facility]-[address] [employer], Arterial Remodeling TechnologiesNcymVH[address] Bert Reagan Notes/Report: NON-FASTING; NON-FASTING; NON-FASTING; NON-FASTING INR 2.8 Reference Range 0.9-1.1 Moderate-intensity Warfarin Therapy 2.0-3.0 Higher-intensity Warfarin Therapy 3.0-4.0 PT 27.8 9.0-11.5 sec For additional information, please refer to http://education.Affectiva.BuddyTV/faq/TER267 (This link is being provided for informational/ educational purposes only.) HEMOGLOBIN A1c (496) Reviewed date:09/09/2025 02:11:40 PM Interpretation: Performing Lab:ISATU [facility], Arterial Remodeling TechnologiesHsjlBC[address] Bert Reagan Notes/Report: NON-FASTING; NON-FASTING; NON-FASTING; NON-FASTING [...] A1c for diagnosis of diabetes for children. Medications Medication SIG (Take, Route, Frequency, Duration) Notes Start Date End Date Status B-12 2500 MCG 1 tab(s) sublingually once a day; Duration: 30 day(s) Active Carvedilol 25 MG 2 tab(s) orally [...] e-prescription and drug interaction check* 01/15/2014 Active Allopurinol 300 mg TAKE 1 TABLET 1 TIME EACH DAY; Duration: 90 Active Nitrostat 0.4 MG DISSOLVE ONE TABLET UNDER TONGUE EVERY 5 MINUTES FOR 3 DOSES NEEDED FOR sublingually every 5 minutes; Duration: 90 days Active metFORMIN HCl 1000 MG TAKE 1 TABLET 1 TIME EACH DAY; Duration: 90 Active Vitamin D (Ergocalciferol) 1.25 MG (41375 UT) TAKE 1 CAPSULE BY MOUTH ONCE A WEEK 28; Duration: 28 Active Loratadine 10 mg TAKE 1 TABLET 1 TIME EACH DAY; Duration: 90 Active Lantus SoloStar 100 UNIT/ML 25 units Subcutaneous once a day 07/05/2025 Active Entresto 97-103 MG 1 tablet Orally Twice a day; Duration: 90 days 01/29/2025 Active Gabapentin 300 mg TAKE 1 CAPSULE 3 TIMES EACH DAY; Duration: 30 07/30/2025 Active Breztri Aerosphere 160 MCG-4.8 MCG-9 MCG/INH 2 PUFF(S) INHALED 2 TIMES A DAY; Duration: 30 DAYS *Please review and pick correct strength-formulati on from [email or web address] options. If intended option is not shown, discontinue and re-order from Quick Search* 01/25/2024 Active Clopidogrel Bisulfate 75 mg TAKE 1 TABLET 1 TIME EACH DAY; Duration: 90 Active Verapamil HCl ER 180 MG 1 cap(s) orally once a day; Duration: 90 days 11/03/2021 Active Atorvastatin Calcium 80 mg TAKE 1 TABLET 1 TIME EACH DAY AT BEDTIME; Duration: 90 Active Immunizations Vaccine Route Administration Date Status Comme nts Arexvy IM Intramuscular 10/06/2023 Administered Covid Moderna Unknown 03/05/2021 Administered Covid Moderna Unknown 04/02/2021 Administered Fluvirin (MEDICARE ONLY) IM Intramuscular 08/17/2016 Pendi ng Fluzone High Dose IM Intramuscular 08/10/2018 Administered Fluzone High Dose IM Intramuscular 08/14/2019 Administered Fluzone High Dose IM Intramuscular 07/15/2020 Administered Fluzone High Dose IM Intramuscular 07/28/2021 Administered Fluzone High Dose IM Intramuscular 09/14/2022 Administered Fluzone High Dose IM Intramuscular 08/16/2023 Administered Fluzone High Dose IM Intramuscular 07/24/2024 Administered Fluzone High Dose IM Intramuscular 09/03/2025 Administered Influenza-Fluzone 3+years (NON-MEDICARE) IM Intramuscular 08/12/2015 Administered Influenza-Fluzone 3+years (NON-MEDICARE) IM Intramuscular 08/16/2017 Administered Pneumovax 23 IM Intramuscular 12/23/2020 Administered Prevnar PCV-13 (Pneumococcal conjugate 13) IM Intramuscular 11/14/2018 Administered SHINGRIX IM Intramuscular 03/15/2023 Administered SHINGRIX IM Intramuscular 06/21/2023 Administered Problems Problem Type SNOMED Code ICD Code Onset Dates Problem Status W/U Status Risk Notes Problem Diabetic peripheral neuropathy associated with type 2 diabetes mellitus (8430761089162) Type 2 diabetes mellitus with diabetic neuropathy, unspecified (E11.40) Active confirmed Problem Peripheral circulatory disorder associated with diabetes mellitus (284637900) Type 2 diabetes mellitus with other circulatory complications (E11.59) Active confirmed Problem Type 2 diabetes mellitus with other specified complication (E11.69) Active confirmed Problem Type II diabetes mellitus without complication (665382290) Type 2 diabetes mellitus without complications (E11.9) Active confirmed Problem Diabetes mellitus without complication (139965330) Other specified diabetes mellitus without complications (E13.9) Active confirmed Problem Essential hypertension (07768957) Essential (primary) hypertension (I10) Active confirmed Problem Atherosclerotic heart disease of [place] coronary artery without angina pectoris (727938296566669) Atherosclerotic heart disease of [place] coronary artery without angina pectoris (I25.10) Active confirmed Problem Chronic ischemic heart disease (952414770) Chronic ischemic heart disease, unspecified (I25.9) Active confirmed Problem Mixed anxiety and depressive disorder (633963771) Depression with anxiety (F41.8) Active confirmed Problem Anemia due to blood loss (679537956) Anemia, blood loss (D50.0) Active confirmed Problem Hyperlipidemia (78500616) Hyperlipidemia, unspecified (E78.5) Active confirmed Problem History of polyp of colon (situation) (764704412) History of colon polyps (Z86.010) Active confirmed Problem Long-term current use of insulin (880240120) intermediate frame tender current use of insulin (Z79.4) Active confirmed Problem Chronic systolic heart failure (666352046) Chronic systolic heart failure (I50.22) Active confirmed Problem History of heart valve repair with prosthesis (762246572939520) 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) Active confirmed Problem Diabetic peripheral neuropathy (266278073) Diabetic peripheral neuropathy (E11.42) Active confirmed Problem Skin sensation disturbance (53969722) Left hand paresthesia (R20.2) Active confirmed Problem 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 (246509341) intermediate frame tender current use of anticoagulant therapy (Z79.01) Active confirmed Problem Primary hypertension (67976058) Primary hypertension (I10) Active confirmed Problem 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) Active confirmed Problem Systolic heart failure (226481206) Systolic CHF with reduced left ventricular function, NYHA class 2 (I50.20) Active confirmed Problem Chronic cough (24339732) Chronic cough (R05.3) Active confirmed Problem Chronic obstructive bronchitis (disorder) (657970755) 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 [place] [address] [place], [place] [address] 01/26/2025 Provider Migration Chronic systolic heart failure I50.22 [facility] [address] [address] 11/20/2024 Humphreydo Eli Chronic systolic hea rt failure I50.22 ; Essential (primary) hypertension I10 ; Chronic ischemic heart disease, unspecified I25.9 ; Aortic valve replaced Z95.2 and Type 2 diabetes mellitus with other specified complication E11.69 [facility] [address] [address] 12/06/2024 Humphreydo Eli Type 2 diabetes mellitus without complications E11.9 ; Essential (primary) hypertension I10 ; Chronic systolic heart failure I50.22 and Mechanical heart valve present Z95.2 [facility] [address] [address] 01/10/2025 Humphrey Besson Chronic systolic hea rt failure I50.22 and Hospital discharge follow-up Z09 [facility] [address] [address] 01/29/2025 Humphrey Besson Systolic CHF with reduced left ventricular function, NYHA class [address] [address] 03/05/2025 Humphrey Besson Systolic CHF with reduced left ventricular function, NYHA class 2 I50.20 ; Type 2 diabetes mellitus with diabetic neuropathy, unspecified E11.40 and Aortic valve replaced Z95.2 [facility] [address] [address] 04/02/2025 Humphrey Besson Chronic systolic hea rt failure I50.22 and Aortic valve replaced Z95.2 [facility] [address] [address] 05/30/2025 Humphrey Besson Chronic systolic hea rt failure I50.22 ; Type 2 diabetes mellitus without complications E11.9 ; Aortic valve replaced Z95.2 ; Essential (primary) hypertension I10 ; Hyperlipidemia, unspecified E78.5 ; Atherosclerotic heart disease of [place] coronary artery without angina pectoris I25.10 ; COPD with chronic bronchitis J44.89 and Routine medical exam Z00.00 [facility] [address] [address] 09/03/2025 Humphrey Eli Chronic systolic hea rt failure I50.22 ; Aortic valve replaced Z95.2 ; Type 2 diabetes mellitus with diabetic neuropathy, unspecified E11.40 ; Essential (primary) hypertension I10 ; Systolic CHF with reduced left ventricular function, NYHA class 2 I50.20 and Immunization(s) administered Z23 [facility] [address] [address] 01/07/2025 Humphrey Eli Chronic systolic hea rt failure I50.22 [facility] [place] [address] [place] [address] 02/22/2025 Humphrey Besson [facility] [place] [address] [place] [address] 03/06/2025 Humphrey Besson [facility] [address] [address] 06/10/2025 Humphrey Eli Chronic systolic hea rt failure I50.22 [facility] [address] [address] 07/04/2025 Humphrey Eli Assessments Encounter Date Diagnosis (ICD Code) Assessment Notes Treatment Notes Treatment Clinical Notes Section Notes 11/20/2024 Essential (primary) hypertension (ICD-10 - I10) Chronic. BP 118/70 in office today. On carvedilol. Will start Entresto for kidney protection due to patient's history of diabetes and hypertension. 11/20/2024 Chronic systolic heart failure (ICD-10 - I50.22) Patient has diffuse crackles on exam. Will draw BNP to evaluate fluid status. Will personally review labs and adjust medications if needed. 12/06/2024 Type 2 diabetes mellitus without complications [...] will begin therapy with Spirinolactone to work [facility] GDMT for HFrEF. 03/05/2025 Type 2 diabetes mellitus with diabetic neuropathy, unspecified (ICD-10 - E11.40) 03/05/2025 Systolic CHF with reduced left ventricular [...] his warfarin therapy for his mechanical valve 04/02/2025 Chronic systolic heart failure (ICD-10 - I50.22) On appropriate highest dose of Entresto. No change in plans, I will see him in 4 weeks. Will check electrolytes. Consider ramping up diuretic therapy if he still has edema. 04/02/2025 Aortic valve replaced (ICD-10 - Z95.2) Check INR. I'll review personally 05/30/2025 Type 2 diabetes mellitus without complications (ICD-10 - E11.9) Check a1c... no issues with meds 05/30/2025 Chronic systolic heart failure (ICD-10 - I50.22) Euvolemic - check lytes. On appropriate GDMT 06/10/2025 Chronic systolic heart failure (ICD-10 - I50.22) 09/03/2025 Chronic systolic heart failure (ICD-10 - [...] A1C and CMP to be completed today 05/30/2025 Aortic valve replaced (ICD-10 - Z95.2) well managed on warfarin. Pt/INR labs done today 03/05/2025 Aortic valve replaced (ICD-10 - Z95.2) 12/06/2024 Chronic systolic heart failure (ICD-10 - I50.22) Continue medications. Tolerating new meds with ANRI well.... no changes at this point. 11/20/2024 Chronic ischemic heart disease, unspecified (ICD-10 - I25.9) EKG done in office shows chronic atrial fibrillation with breakthrough PVCs. This is consistent with the patient's palpitations. 11/20/2024 Aortic valve replaced (ICD-10 - Z95.2) Patient on long-term anticoagulation due to aortic valve replacement. He denies any issues with easy bruising or bleeding. Will draw PT/INR and review results personally. 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 Follow-up in 2 months. Good rate control... 05/30/2025 Essential (primary) hypertension (ICD-10 - I10) well managed with medications. No negative side effects 09/03/2025 Essential (primary) hypertension (ICD-10 - I10) Well controlled on current regimen. Denies any hypotensive episodes. Continue treatment plan as directed 09/03/2025 Systolic CHF with reduced left ventricular function, NYHA class 2 (ICD-10 - I50.20) See notes above 05/30/2025 Hyperlipidemia, unspecified (ICD-10 - E78.5) 11/20/2024 Type 2 diabetes mellitus with other specified complication (ICD-10 - E11.69) Microalbumin done in-house showed albumin in his urine. Will start Entresto for kidney protection due to patient's history of diabetes and hypertension. Will draw A1C and review results personally. May adjust medication regimen if indicated. 05/30/2025 Atherosclerotic heart disease of [place] coronary artery without angina pectoris (ICD-10 - I25.10) well managed with medication 09/03/2025 Immunization(s) administered (ICD-10 - Z23) Influenza administered today 05/30/2025 COPD with chronic bronchitis (ICD-10 - J44.89) Inhaler samples given today 05/30/2025 Routine medical exam (ICD-10 - Z00.00) Dtap and Prevnar 21 administered today UTD with c-scope Out of range of LDCT quit smoking >15 years ago Shots given as noted. Reviewed HRA - no falls, depression screen negative 12/24 word recall is Health care surrogate 11/20/2024 Other Labs as above. Will review results personally. Follow-up in 2 months 01/29/2025 Other Overall complex visit based on review of echocardiogram, medication reconciliation and establishing better medication reconciliation process. Instructions given to patient re: bring his medicines back in next visit Plan Of Treatment Pending Test Test Name Order Date Urinalysis 01/16/2007 Urinalysis 11/02/2006 Microalbumin (In-House) 11/02/2006 Microalbumin (In-House) 01/16/2007 Microalbumin (In-House) 07/17/2007 Microalbumin (In-House) 09/14/2022 N-HbA1C 01/11/2008 N-protime w/INR standing order 2 N-protime w/INR standing order 1 M-INR/PT 12/23/2020 M-Basic Metabolic Panel 11/03/2021 M-Hemoglobin A1C 11/03/2021 M-Vitamin B12 07/07/2021 M-Vitamin D 25 Hydroxy 07/07/2021 COMPREHENSIVE METABOLIC PANEL (REFL) (37 015) 12/14/2022 CBC (INCLUDES DIFF/PLT) (6399) 3 PROTHROMBIN TIME-INR (8847) 12/14/2022 HEMOGLOBIN A1c (496) 12/14/2022 Future Test Test Name Order Date H-CBC with AUTO DIFF 08/15/2015 H-CMP 08/15/2015 Next Appt Details Provider Name:Humphrey Eli, 12/03/2025 09:15:00 AM, [address] [place] [address] 4, [place], [address], Insurance Providers Payer Name Payer Address Payer Phone Subscriber Number Group Number Insured Name Patient Relationship to Insured Coverage Start Date Coverage End [place] [address] [place] [address] [id number] Nino Regalado Self - patient is the insured [facility] [address] [address] [place] [address] [phone] [id number] Nino Regalado Self - patient is the insured [employer] [address] [place] [address] ACL Nino Regalado Self - patient is the insured Medications Administered Medication Instructions Date of Administration Dosage Notes Berenice 06/01/2013 1 Medical (General) History Medical History History ICD Code LA treated medically in 2000 with preser farnaz [...] urinary retention and dorsal slit procedure at [facility] 08/15 Hospitalization History Reason Date(Month/Year) [place] x4 days 07/2023 [facility] bleeding from surgery 06/3015 gallbladder surgery 07/21/15
--- OUTSIDE RECORDS SUMMARY | 2025-09-26 04:27 | XMS_ITS | Clinical Summary ---
Author Organization [facility] Address [address] [place] [address] Care Team Providers Care Income Tax Advisor Name Role Phone Humphrey Chavarria MD Primary Care Provider [phone] Allergies Active Allergy Reactions Criticality Noted Date [...] 08/11/2023 Active ergocalciferol (Vitamin D-2) 1.25 MG (98597 UT) capsule TAKE 1 CAPSULE BY MOUTH ONCE A WEEK 28 for 28 Active Lasix 40 MG tablet 40 mg. 08/13/2023 Active gabapentin (Neurontin) 300 MG capsule 300 mg. 06/21/2023 Active FREESTYLE LITE test strip 08/17/2023 Active hydroCHLOROthiaz lucía (HYDRODiuril) 50 MG tablet 07/25/2023 Active Toujeo Max SoloStar 300 UNIT/ML solution pen-injector 25 Units, SubCutaneous , Daily 08/11/2023 Active Easy Comfort Pen [place] 31G X 5 MM misc 05/13/2023 Active [...] 2003 Zoster Vaccines (1 of 2) 2003 Diabetes Screening 08/10/2024 08/10/2023 Depression Risk Screening 10/24/2024 Fall Risk Screening 10/24/2024 SDOH Screening 10/24/2024 COVID-19 Vaccine ( season) 2025 04/02/2021, 03/05/2021 Influenza Vaccine (#1) 2025 3, 07/28/2021, 07/15/2020, [...] >=60 mL/min/1.7 3m2 08/10/2023 8:59 PM EDT [facility] Remisol 2.0 SS Comment:eGFR calculation per formed using the CKD-EPI 2020 equation (race variable excluded) Blood 08/10/2023 8:28 PM EDT 08/10/2023 8:33 PM EDT Paul Stubbs MD LAB BLOOD ORDERABLES E dited Result - Final [facility] [address] [place] [address], [facility] Remisol 2.0 SS Pathology Department [address] [place] [address] from Last 3 Months or Most Recently Relevant to Health Maintenance Insurance [employer] [facility] MEDICARE Care Teams Income Tax Advisor Relationship Specialty Start Date End Date Besson, Humphrey A, MD [address] [place] [address] PCP - General Adolescent Medicine 12/25/20
--- NOTE | 2025-09-26 04:32 | ECG_ITS ---
APPROVED REPORT Exam: Resting ECG HR:76 bpm ECG Measurements Heart Rate 76 AXES WA 129 P 265 QRSd 111 QRS 82 QT 433 T -63 QTc 463 Conclusion JUNCTIONAL RHYTHM WITH FREQUENT VENTRICULAR PREMATURE COMPLEXES MODERATE INTRAVENTRICULAR CONDUCTION DELAY [105+ ms QRS DURATION, 80+ ms Q/S IN V1/V2, NO Q AND 60+ ms R IN I/aVL/V5/V6] ST DEVIATION AND MODERATE T-WAVE ABNORMALITY, CONSIDER LATERAL ISCHEMIA [-0.1+ mV T-WAVE IN I/aVL/V5/V6] ST DEVIATION AND MODERATE T-WAVE ABNORMALITY, CONSIDER INFERIOR ISCHEMIA [-0.1+ mV T-WAVE IN II/aVF] ABNORMAL ECG UNCONFIRMED REPORT Electronically signed by : NORAH PETERSON, 09/26/2025 04:59:30
--- NOTE | 2025-09-26 04:33 | XR_ITS ---
PROCEDURE INFORMATION: Exam: XR Chest Exam date and time: 09/26/2025 4:49 AM Age: 69 years old Clinical indication: Other: Anxiety TECHNIQUE: Imaging protocol: Radiologic exam of the chest. Views: 1 view. COMPARISON: CR Chest 05/14/2025 1:50 AM FINDINGS: Lungs: Unremarkable. No consolidation. Pleural spaces: Moderate left-sided pleural effusion not significantly changed from prior. Heart/Mediastinum: Cardiomegaly. Aortic valve replacement. Bones/joints: Median sternotomy. IMPRESSION: Cardiomegaly. No acute infiltrates. Moderate left-sided pleural effusion not significantly changed from prior.
[2025-09-26 04:44] LABS: Hematocrit 36.6 % (42.0-52.0); Hemoglobin 11.2 g/dL (14.1-18.0); Immature Granulocytes % 0.2 %; Mean Corpuscular HGB Conc 30.6 g/dL (31.8-35.4); Mean Corpuscular Hemoglobin 28.0 pg (27.0-31.2); Mean Corpuscular Volume 91.5 fl (80-94); Nucleated Red Blood Cells % 0 %; Platelet Count 216 K/mm3 (142-424); Red Blood Count 4.00 M/mm3 (4.60-6.20); Red Cell Distribution Width-SD 52.8 fL; White Blood Count 8.5 K/mm3 (4.8-10.8)
[2025-09-26 04:51] LABS: Chloride 108 mmol/L (98-107); Potassium 3.6 mmoL/L (3.5-5.1); Sodium 146 mmol/L (136-145)
[2025-09-26 04:54] LABS: Alanine Aminotransferase 20 U/L (12-78); Alkaline Phosphatase 108 U/L (38-126); Anion Gap 10.6 mEq/L (5-15); Aspartate Amino Transferase 35 U/L (17-59); Bilirubin,Total 0.9 mg/dl (0.2-1.3); Blood Urea Nitrogen 17 mg/dl (9-20); Calcium 8.4 mg/dl (8.4-10.2); Carbon Dioxide 31 mmol/L (22.0-30.0); Creatinine Clearance Estimated 59 mL/min (50-200); Creatinine,Serum 1.40 mg/dl (0.66-1.25); Estimated Glomerular Filt Rate 50 ml/min (>60); GFR (African American) 60 ML/MIN (>60); Lipase 63 U/L (23-300); Magnesium 1.7 mg/dl (1.6-2.3); Total Protein,Serum 6.3 g/dl (6.3-8.2)
[2025-09-26 04:56] LABS: Glucose 47 mg/dl (74-100)
[2025-09-26 05:06] LABS: Troponin I < 0.01 ng/ml (0.00-0.034)
[2025-09-26 05:10] LABS: T4 (Thyroxine) 12.1 ug/dl (5.53-11.0)
[2025-09-26 05:24] LABS: Thyroid Stimulating Hormone 4.48 uIU/mL (0.465-4.68)
[2025-09-26 05:27] LABS: Albumin Level 3.0 g/dl (3.5-5.0); Albumin/Globulin Ratio 0.9 (1.1-1.8); Globulin 3.3 g/dL (1.3-3.2)
[2025-09-26 05:36] LABS: INR 3.69 (0.9-1.1); Prothrombin Time 37.2 seconds (10.1-12.5)
--- NOTE | 2025-09-26 05:47 | PC.NURSE ---
FS 119
== END 2025-09-26 07:01 | disposition home or self-care (01) ==
PROVIDERS: Emergency Provider Emergency Medicine; PCP Internal Medicine Adolescent Medicine
DX: E11.649 Type 2 diabetes mellitus with hypoglycemia without coma (principal); E87.0 Hyperosmolality and hypernatremia; F41.1 Generalized anxiety disorder; I49.3 Ventricular premature depolarization; I11.0 Hypertensive heart disease with heart failure; I50.22 Chronic systolic (congestive) heart failure; Z86.79 Personal history of other diseases of the circulatory system; Z95.2 Presence of prosthetic heart valve; Z79.4 Long term (current) use of insulin; Z87.891 Personal history of nicotine dependence
CPT/HCPCS: 71045; 80053; 83690; 83735; 84436; 84443; 84484; 85025; 85610; 93005; 99284; 99285